=== PATIENT | male | born 1940 | race Caucasian/White ===

== ENCOUNTER → 2016-02-15 | Outpatient (CLI) | payer MEDICARE, OTHER ==
[~2016-02-15] MED LIST: AMBI10TA PO; CALTTAB2 PO; FENT75DI TD; FURO20 PO; GABA100C4 PO; LORT5TAB PO; OXYC-360 PO; POTA10IN2 PO; TAB-TAB PO; VITA400T14 PO; XANA0.5T PO; ZIAC2.5T PO; [UNRECOGNIZED DRUG - CODE]
== END ==
LOC: PLAB 12:44
PROVIDERS: ATTEND Urology
DX: R97.20 Elevated prostate specific antigen [PSA] (principal)
CPT/HCPCS: 36415; 84153

== ENCOUNTER → 2016-02-24 | Outpatient (CLI) | payer MEDICARE, OTHER ==
[2016-02-24 15:58] LABS: ALT (GPT) 26 U/L (12-78); ANION GAP 3 MEQ/L (5-15); AST (GOT) 19 U/L (15-37); BICARBONATE 30.1 MEQ/L (21.0-32.0); BLOOD UREA NITROGEN 18 MG/DL (7-18); CHLORIDE 106 MEQ/L (98-107); GLOMERULAR FILTRATION RATE 62 ML/MIN (>89); GLUCOSE,FASTING 91 MG/DL (74-99); POTASSIUM 4.3 MEQ/L (3.5-5.1); SODIUM (NA) 139 MEQ/L (136-145)
[2016-02-24 16:01] LABS: ALKALINE PHOSPHATASE 56 U/L (45-117); HDL CHOLESTEROL 41.4 MG/DL (40.0-60.0); LDL CHOLESTEROL 56 MG/DL (0-99); TOTAL BILIRUBIN ADULT 0.8 MG/DL (0.2-1.0)
== END ==
LOC: PLAB 11:30
PROVIDERS: ATTEND Family Medicine
DX: E78.5 Hyperlipidemia, unspecified (principal); I25.10 Atherosclerotic heart disease of native coronary artery without angina pectoris; I10 Essential (primary) hypertension
CPT/HCPCS: 36415; 80053; 80061

== ENCOUNTER → 2016-04-14 | Outpatient (CLI) | payer MEDICARE, OTHER ==
[2016-04-14 15:03] LABS: URIC ACID 6.7 MG/DL (2.6-7.2)
[2016-04-14 15:04] LABS: RHEUMATOID FACTOR TRIGGER LESS THAN 10.0 IU/ML (0.0-14.9)
== END ==
LOC: PLAB 11:59
PROVIDERS: ATTEND Internal Medicine Rheumatology
DX: M06.4 Inflammatory polyarthropathy (principal)
CPT/HCPCS: 36415; 84550; 85652; 86038; 86140; 86200; 86430; 99212; G0463

== ENCOUNTER → 2016-05-11 | Outpatient (CLI) | payer MEDICARE, OTHER ==
[2016-05-11 15:53] LABS: AUTOMATED NEUTROPHIL # 6.2 TH/MM3 (1.8-7.7); BASOPHIL % 0.4 % (0.0-2.0); EOSINOPHIL # 0.1 TH/MM3 (0-0.4); EOSINOPHIL % 1.2 % (0.0-4.0); HEMATOCRIT 41.5 % (39.0-51.0); HEMO FLAGS DIFF FINAL; LYMPH % 18.3 % (9.0-44.0); LYMPHOCYTE # 1.5 TH/MM3 (1.0-4.8); MEAN CELL VOLUME 86.4 FL (80.0-100.0); MEAN CORPUSCULAR HEMOGLOBIN 28.8 PG (27.0-34.0); MEAN CORPUSCULAR HGB CONC 33.3 % (32.0-36.0); MONO % 4.6 % (0.0-8.0); NEUT % 75.5 % (16.0-70.0); PLATELET COUNT 186 TH/MM3 (150-450); RED CELL DISTRIBUTION WIDTH 15.2 % (11.6-17.2); WHITE BLOOD COUNT 8.2 TH/MM3 (4.0-11.0)
[2016-05-11 16:02] LABS: BICARBONATE 30.4 MEQ/L (21.0-32.0); POTASSIUM 4.3 MEQ/L (3.5-5.1)
[2016-05-11 16:23] LABS: BLOOD, URINE TRACE (NEG); GLUCOSE,URINE NEG (NEG); KETONE, URINE NEG (NEG); NITRITE,URINE NEG (NEG); URINE COLOR LIGHT-YELLOW (YELLW/STRAW)
[2016-05-11 16:25] LABS: COMMENT (UR) CULT NOT INDICATED; CULTURE IF INDICATED CULT NOT INDICATED
== END ==
LOC: PLAB 13:10
PROVIDERS: ATTEND Internal Medicine Nephrology
DX: N18.2 Chronic kidney disease, stage 2 (mild) (principal); N25.81 Secondary hyperparathyroidism of renal origin
CPT/HCPCS: 36415; 80069; 81001; 82570; 83970; 84156; 85025

== ENCOUNTER → 2016-06-21 | Outpatient (CLI) | payer MEDICARE, OTHER ==
[2016-06-21 12:57] LABS: AUTOMATED NEUTROPHIL # 3.1 TH/MM3 (1.8-7.7); BASOPHIL % 0.3 % (0.0-2.0); EOSINOPHIL # 0.2 TH/MM3 (0-0.4); EOSINOPHIL % 3.7 % (0.0-4.0); HEMATOCRIT 39.6 % (39.0-51.0); HEMO FLAGS DIFF FINAL; LYMPH % 31.5 % (9.0-44.0); LYMPHOCYTE # 1.7 TH/MM3 (1.0-4.8); MEAN CELL VOLUME 87.2 FL (80.0-100.0); MEAN CORPUSCULAR HEMOGLOBIN 28.9 PG (27.0-34.0); MEAN CORPUSCULAR HGB CONC 33.2 % (32.0-36.0); MONO % 7.1 % (0.0-8.0); NEUT % 57.4 % (16.0-70.0); PLATELET COUNT 138 TH/MM3 (150-450); RED BLOOD COUNT 4.54 MIL/MM3 (4.50-5.90); RED CELL DISTRIBUTION WIDTH 15.2 % (11.6-17.2); WHITE BLOOD COUNT 5.4 TH/MM3 (4.0-11.0)
[2016-06-21 13:07] LABS: BICARBONATE 31.2 MEQ/L (21.0-32.0); POTASSIUM 4.5 MEQ/L (3.5-5.1)
== END ==
LOC: PLAB 09:46
PROVIDERS: ATTEND Internal Medicine Nephrology
DX: E55.9 Vitamin D deficiency, unspecified (principal); N18.2 Chronic kidney disease, stage 2 (mild); N25.81 Secondary hyperparathyroidism of renal origin
CPT/HCPCS: 36415; 80069; 82306; 82570; 83970; 84156; 85025

== ENCOUNTER → 2016-08-31 | Outpatient (CLI) | payer MEDICARE, OTHER ==
[2016-08-31 16:07] LABS: ANION GAP 6 MEQ/L (5-15); AST (GOT) 19 U/L (15-37); BICARBONATE 31.8 MEQ/L (21.0-32.0); BLOOD UREA NITROGEN 20 MG/DL (7-18); CHLORIDE 103 MEQ/L (98-107); GLOMERULAR FILTRATION RATE 60 ML/MIN (>89); GLUCOSE,FASTING 90 MG/DL (74-99); POTASSIUM 4.1 MEQ/L (3.5-5.1); SODIUM (NA) 141 MEQ/L (136-145)
[2016-08-31 16:11] LABS: ALKALINE PHOSPHATASE 54 U/L (45-117); ALT (GPT) 23 U/L (12-78); HDL CHOLESTEROL 43.7 MG/DL (40.0-60.0); LDL CHOLESTEROL 48 MG/DL (0-99); TOTAL BILIRUBIN ADULT 0.8 MG/DL (0.2-1.0)
== END ==
LOC: PLAB 10:44
PROVIDERS: ATTEND Family Medicine
DX: E78.5 Hyperlipidemia, unspecified (principal); I10 Essential (primary) hypertension
CPT/HCPCS: 36415; 80053; 80061

== ENCOUNTER → 2016-12-28 | Outpatient (CLI) | payer MEDICARE, OTHER ==
[2016-12-28 12:53] LABS: BASOPHIL % 0.2 % (0.0-2.0); EOSINOPHIL # 0.3 TH/MM3 (0-0.4); EOSINOPHIL % 3.7 % (0.0-4.0); HEMATOCRIT 41.8 % (39.0-51.0); HEMO FLAGS DIFF FINAL; LYMPH % 28.3 % (9.0-44.0); LYMPHOCYTE # 1.9 TH/MM3 (1.0-4.8); MEAN CELL VOLUME 87.5 FL (80.0-100.0); MEAN CORPUSCULAR HEMOGLOBIN 29.9 PG (27.0-34.0); MEAN CORPUSCULAR HGB CONC 34.2 % (32.0-36.0); MONO % 8.9 % (0.0-8.0); NEUT % 58.9 % (16.0-70.0); PLATELET COUNT 180 TH/MM3 (150-450); RED BLOOD COUNT 4.78 MIL/MM3 (4.50-5.90); RED CELL DISTRIBUTION WIDTH 14.5 % (11.6-17.2); WHITE BLOOD COUNT 6.8 TH/MM3 (4.0-11.0)
[2016-12-28 13:07] LABS: BACTERIA, URINE RARE /hpf; BLOOD, URINE SMALL (NEG); COMMENT (UR) CULTURE INDICATED; CULTURE IF INDICATED CULTURE INDICATED; GLUCOSE,URINE NEG (NEG); KETONE, URINE NEG (NEG); MUCUS URINE FEW /lpf (OCC); NITRITE,URINE NEG (NEG); URINE COLOR YELLOW (YELLW/STRAW)
[2016-12-28 13:16] LABS: BICARBONATE 30.6 MEQ/L (21.0-32.0); POTASSIUM 3.7 MEQ/L (3.5-5.1)
== END ==
LOC: PLAB 10:42
PROVIDERS: ATTEND Physician Assistant
DX: N25.81 Secondary hyperparathyroidism of renal origin (principal); N18.2 Chronic kidney disease, stage 2 (mild); N39.0 Urinary tract infection, site not specified; B95.2 Enterococcus as the cause of diseases classified elsewhere
CPT/HCPCS: 36415; 80069; 81001; 82306; 82570; 83970; 84156; 85025; 87077; 87086; 87186

== ENCOUNTER → 2017-02-13 | Outpatient (CLI) | payer MEDICARE, OTHER ==
[~2017-02-13] MED LIST changes: +ALPR0.5T3 PO; +APIX2.5T PO; +ATOR10TA15 PO; +CALC0.25 PO; +CALC1TAB87 PO; -CALTTAB2 PO; +ERGO2000 PO; +FENT75DI T-DERMAL; -FENT75DI TD; -FURO20 PO; +FURO20TA PO; +HYDR-4107 PO; -LORT5TAB PO; +MULTTAB67 PO; -OXYC-360 PO; +OXYC1TAB63 PO; -POTA10IN2 PO; +POTA10TA2 PO; +PRED2.5T PO; -TAB-TAB PO; +VENTAER INH; -XANA0.5T PO; -[UNRECOGNIZED DRUG - CODE]
[2017-02-13 13:32] LABS: AUTOMATED NEUTROPHIL # 6.8 TH/MM3 (1.8-7.7); BASOPHIL % 0.3 % (0.0-2.0); EOSINOPHIL # 0.3 TH/MM3 (0-0.4); EOSINOPHIL % 3.1 % (0.0-4.0); HEMATOCRIT 39.4 % (39.0-51.0); HEMOGLOBIN 13.6 GM/DL (13.0-17.0); LYMPH % 18.8 % (9.0-44.0); LYMPHOCYTE # 1.8 TH/MM3 (1.0-4.8); MEAN CELL VOLUME 88.4 FL (80.0-100.0); MEAN CORPUSCULAR HEMOGLOBIN 30.6 PG (27.0-34.0); MEAN CORPUSCULAR HGB CONC 34.6 % (32.0-36.0); MONO % 7.2 % (0.0-8.0); MONOCYTE # 0.7 TH/MM3 (0-0.9); NEUT % 70.6 % (16.0-70.0); PLATELET COUNT 182 TH/MM3 (150-450); RED BLOOD COUNT 4.45 MIL/MM3 (4.50-5.90); RED CELL DISTRIBUTION WIDTH 14.5 % (11.6-17.2); WHITE BLOOD COUNT 9.6 TH/MM3 (4.0-11.0)
[2017-02-13 13:42] LABS: ALBUMIN 3.8 GM/DL (3.4-5.0); ALT (GPT) 17 U/L (12-78); AST (GOT) 18 U/L (15-37); BICARBONATE 33.8 MEQ/L (21.0-32.0); BLOOD UREA NITROGEN 19 MG/DL (7-18); CALCIUM 9.9 MG/DL (8.5-10.1); CHLORIDE 102 MEQ/L (98-107); CHOLESTEROL 111 MG/DL (120-200); GLOMERULAR FILTRATION RATE 65 ML/MIN (>89); GLUCOSE,FASTING 81 MG/DL (74-99); SODIUM (NA) 140 MEQ/L (136-145); TRIGLYCERIDES 94 MG/DL (42-150)
[2017-02-13 13:43] LABS: RHEUMATOID FACTOR SCREEN NEGATIVE (NEGATIVE)
[2017-02-13 13:49] LABS: ALKALINE PHOSPHATASE 57 U/L (45-117); CHOLESTEROL/ HDL RATIO 2.42 RATIO; HDL CHOLESTEROL 45.7 MG/DL (40.0-60.0); LDL CHOLESTEROL 47 MG/DL (0-99); TOTAL BILIRUBIN ADULT 0.9 MG/DL (0.2-1.0); TOTAL PROTEIN 6.9 GM/DL (6.4-8.2)
== END ==
LOC: PLAB 11:21
PROVIDERS: ATTEND Internal Medicine Rheumatology
DX: M06.4 Inflammatory polyarthropathy (principal); I25.10 Atherosclerotic heart disease of native coronary artery without angina pectoris; E78.5 Hyperlipidemia, unspecified; I27.0 Primary pulmonary hypertension; I13.10 Hypertensive heart and chronic kidney disease without heart failure, with stage 1 through stage 4 chronic kidney disease, or unspecified chronic kidney disease; N18.3 Chronic kidney disease, stage 3 (moderate); D68.9 Coagulation defect, unspecified
CPT/HCPCS: 36415; 80053; 80061; 82550; 85025; 85652; 86140; 86200; 86430

== ENCOUNTER 2017-03-06 15:55 | Inpatient (IN) | payer MEDICARE, OTHER ==
[~2017-03-06] VITALS: Ht 182.9 cm; Wt 103.2 kg
[2017-03-06 15:59] VITALS: BP 126/56; PULSE 106; RESP 20; TEMP 100.2; O2SAT 96
--- NOTE | 2017-03-06 17:02 | RADRPT ---
EXAM DATE/TIME: 03/06/2017 16:20 [facility] COMPARISON: No previous studies available for comparison. INDICATIONS : Cough, flu like symtpoms. MEDICAL HISTORY : None. SURGICAL HISTORY : None. ENCOUNTER: Initial ACUITY: 1 day PAIN SCORE: 6/10 LOCATION: Bilateral chest FINDINGS: PA and lateral views of the chest demonstrate the lungs to be symmetrically, but under aerated withou t evidence of mass, infiltrate or effusion. The cardiomediastinal contours are unremarkable. Osseou s structures are intact. CONCLUSION: Hypoinflation with no acute cardiopulmonary process. Natalio Gomez MD on March 06, 2017 at 16:56 Board Certified Radiologist. This report was verified electronically.
[2017-03-06 17:43] LABS: AUTOMATED NEUTROPHIL # 11.2 TH/MM3 (1.8-7.7); BASOPHIL % 0.2 % (0.0-2.0); EOSINOPHIL % 0.3 % (0.0-4.0); HEMATOCRIT 41.2 % (39.0-51.0); HEMOGLOBIN 13.8 GM/DL (13.0-17.0); LYMPH % 4.3 % (9.0-44.0); LYMPHOCYTE # 0.6 TH/MM3 (1.0-4.8); MEAN CELL VOLUME 86.5 FL (80.0-100.0); MEAN CORPUSCULAR HEMOGLOBIN 29.1 PG (27.0-34.0); MEAN CORPUSCULAR HGB CONC 33.6 % (32.0-36.0); MEAN PLATELET VOLUME 8.5 FL (7.0-11.0); MONO % 9.2 % (0.0-8.0); MONOCYTE # 1.2 TH/MM3 (0-0.9); PLATELET COUNT 195 TH/MM3 (150-450); RED BLOOD COUNT 4.76 MIL/MM3 (4.50-5.90); RED CELL DISTRIBUTION WIDTH 15.1 % (11.6-17.2); WHITE BLOOD COUNT 13.1 TH/MM3 (4.0-11.0)
[2017-03-06 17:48] LABS: INTERNATIONAL NORMALIZED RATIO 1.1 RATIO
[2017-03-06 17:55] LABS: ALBUMIN 4.5 GM/DL (3.4-5.0); AST (GOT) 33 U/L (15-37); BICARBONATE 28.9 MEQ/L (21.0-32.0); BLOOD UREA NITROGEN 21 MG/DL (7-18); CALCIUM 10.2 MG/DL (8.5-10.1); CHLORIDE 99 MEQ/L (98-107); CREATININE 1.47 MG/DL (0.60-1.30); GLOMERULAR FILTRATION RATE 47 ML/MIN (>89); GLUCOSE,RANDOM 95 MG/DL (74-106); MAGNESIUM 1.9 MG/DL (1.5-2.5); SODIUM (NA) 137 MEQ/L (136-145)
[2017-03-06 17:56] LABS: AMORPHOUS SEDIMENT, URINE RARE; BACTERIA, URINE RARE /hpf; BILIRUBIN, URINE NEG (NEG); BLOOD, URINE MOD (NEG); GLUCOSE,URINE NEG (NEG); KETONE, URINE NEG (NEG); MUCUS URINE FEW /lpf (OCC); NITRITE,URINE NEG (NEG); SQUAMOUS EPITHELIAL CELL URINE <1 /hpf (0-5); URINE COLOR YELLOW (YELLW/STRAW); URINE LEUKOCYTE ESTERASE MOD (NEG)
[2017-03-06 17:57] LABS: ALT (GPT) 25 U/L (12-78)
[2017-03-06 18:08] LABS: ALKALINE PHOSPHATASE 62 U/L (45-117); TOTAL BILIRUBIN ADULT 1.2 MG/DL (0.2-1.0); TOTAL PROTEIN 7.9 GM/DL (6.4-8.2)
[2017-03-06] MEDS ORDERED: PLAQ200T PO (19:27)
[2017-03-06] MEDS ORDERED: SODIUM CHLOR 0.9% 1000 ML INJ 1,000 ML IV ONE (19:30)
[2017-03-06] MEDS ORDERED: cefTRIAXone INJ 1,000 MG in SODIUM CHLORIDE 0.9% INJ 100 ML IV ONE (19:30)
[2017-03-06 19:35] VITALS: BP 122/64; PULSE 89; RESP 16; O2SAT 95
[2017-03-06] MEDS ORDERED: ONDANSETRON HCL 4 MG/2 ML VIAL IV PUSH ONE (20:00)
[2017-03-06] MEDS ORDERED: ACETAMINOPHEN 325 MG TAB PO ONE (20:15)
[2017-03-06] MEDS ORDERED: NITROFURANTOIN MONOHYD MACROCR 100 MG CAP PO ONE (20:15)
--- NOTE | 2017-03-06 20:24 | RADRPT ---
EXAM DATE/TIME: 03/06/2017 19:52 [facility] COMPARISON: No previous studies available for comparison. INDICATIONS : Bilateral lower back pain,difficulty urinating ORAL CONTRAST: No oral contrast ingested. RADIATION DOSE: 8.54 CTDIvol (mGy) MEDICAL HISTORY : Cardiovascular disease. Hypertension. Renal diseaseand failure SURGICAL HISTORY : Appendectomy. ENCOUNTER: Initial ACUITY: 1 day PAIN SCALE: 8/10 LOCATION: Abdomen TECHNIQUE: Volumetric scanning of the abdomen and pelvis was performed. Using automated exposure control and ad justment of the mA and/or kV according to patient size, radiation dose was kept as low as reasonably achievable to obtain optimal diagnostic quality images. DICOM format image data is available electro nically for review and comparison. FINDINGS: Lung bases are clear. No acute findings in the liver, spleen, adrenals or pancreas. No calcified gall stones. There are numerous nonobstructing calculi the right kidney measuring up to 1 cm in diameter superiorl y. Small nonobstructing left renal calculi. Multiple bilateral renal cysts. No hydronephrosis. No free fluid. No bowel obstruction. No adenopathy. 3.6 cm infrarenal abdominal aortic aneurysm. No free fluid. No bowel obstruction. No adenopathy. Severe scoliosis with stenosis in the lower lumbar spine. CONCLUSION: 1. Numerous bilateral renal cysts and nonobstructing calculi. 2. 3.6 cm infrarenal abdominal aortic aneurysm. 3. Severe scoliosis and spinal stenosis. 4. Inferior vena cava filter present. Dense coronary calcifications. Abhishek Fontaine MD on March 06, 2017 at 20:15 Board Certified Radiologist. This report was verified electronically.
--- NOTE | 2017-03-06 20:43 | PD ---
HPI Chief Complaint: Fever Time Seen by Provider: 19:25 Travel History International Travel<30 days: No Contact w/Intl Traveler<30days: No Traveled to known affect area: No History of Present Illness HPI 77-year-old male came to the emergency room brought by his with history of fever, chills and generalized weakness that came all of a sudden at 11 AM this morning. Patient has history of multiple UTIs in the past. He sees a urologist for recurrent kidney stones and questionable bladder cancer that's being worked up currently. Patient had gone to see his primary care this morning and says that at that point everything was fine. When he came home he suddenly started to get the chills. He has been nauseous and has headache. Patient recently recovered from influenza about 4-6 weeks ago. Patient was seen by the triage provider and workup was initiated upfront. By the time he came back in all the workup was back. No history of diarrhea. No history of cough. Patient had a temperature of 100.1 in triage. Currently when I'm talking to him he is exhibiting that shaking chills. Patient has had sepsis in the past and when he started recognizing the symptoms he immediately came to the emergency room. [facility] Past Medical History Narrative Medical List of his past medical, surgical, social and family history is reviewed from the nursing note. Hx Anticoagulant Therapy: Yes (Eliquis) Arthritis: Yes Asthma: Yes Autoimmune Disease: Yes Blood Disorders: No Anxiety: No Depression: No Cancer: No Cardiac Catheterization: Yes Cardiovascular Problems: Yes (CARDIAC CATH SHOWED BLOCKAGE) High Cholesterol: Yes Chest Pain: Yes Congestive Heart Failure: No COPD: No Cerebrovascular Accident: No Coronary Artery Disease: Yes Diabetes: No Diminished Hearing: No Endocrine: No Gastrointestinal Disorders: Yes GERD: Yes Glaucoma: No Genitourinary: Yes (KIDNEY DISEASE) Headaches: No Hepatitis: No Hiatal Hernia: No Hypertension: Yes Immune Disorder: Yes Implanted Vascular Access Dvce: Yes Kidney Stones: Yes Medical other: Yes (THROMBI RACHID. LEGS, BPH, ANEMIA, MERSA) Musculoskeletal: Yes Neurologic: Yes Psychiatric: No Reproductive: No Respiratory: Yes Migraines: No Renal Failure: Yes (CLOSE TO KIDNEY FAILURE SEP 2007) Seizures: No Sleep Apnea: No Thyroid Disease: No Ulcer: No Influenza Vaccination: Yes Past Surgical History Abdominal Surgery: Yes (VENTRAL HERNIA, COLON RES., COLOSTOMY, (& REVERSAL)) Appendectomy: Yes Body Medical Devices: METAL SUTURES RIGHT ABDOMEN DUE TO APPY Cardiac Surgery: No Cholecystectomy: No Ear Surgery: No Endocrine Surgery: No Eye Surgery: Yes (BILATERAL CATARACT ) Genitourinary Surgery: Yes (URETERAL STENT, ESWL (MULTI), LITHOTRIPSY) Gynecologic Surgery: No Neurologic Surgery: Yes (LUMBAR FUSION, (X2)) Oral Surgery: Yes (T & A) Pacemaker: No Thoracic Surgery: No Tonsillectomy: Yes Other Surgery: Yes (GREEN FIELD FILTER) Social History Alcohol Use: Yes (1 BEER SOCIALLY) Tobacco Use: No Substance Use: No Allergies-Medications (Allergen,Severity, Reaction): Coded Allergies: amitriptyline (Unverified Allergy, Severe, 01/15/17) diatrizoate meglumine (Unverified Allergy, Severe, Hypotension, 01/15/17) gadobenic acid (Unverified Allergy, Severe, Hypotension, 01/15/17) gadodiamide (Unverified Allergy, Severe, Hypotension, 01/15/17) gadoteridol (Unverified Allergy, Severe, Hypotension, 01/15/17) iodixanol (Unverified Allergy, Severe, Hypotension, 01/15/17) iohexol (Unverified Allergy, Severe, Hypotension, 01/15/17) pentazocine (Unverified Allergy, Severe, BRADYCARDIA, DECREASE NEURO STATUS, 01/15/17) pregabalin (Unverified Allergy, Severe, 01/15/17) warfarin (Unverified Allergy, Severe, 01/15/17) Comments List of his allergies reviewed from the nursing note. Reported Meds & Prescriptions Reported Meds & Active Scripts Active Reported Plaquenil (Hydroxychloroquine Sulfate) 200 Mg Tab 200 Mg PO BID Take with food Prednisone 2.5 Mg Tab 1.25 Mg PO BID Atorvastatin (Atorvastatin Calcium) 10 Mg Tab 5 Mg PO HS Ventolin Hfa 18 GM Inh (Albuterol Sulfate) 90 Mcg/Act Aer 2 Puff INH DAILY PRN Calcitriol 0.25 Mcg Cap 0.25 Mcg PO DIRECTED sunday, sunday, sunday and sunday Ambien (Zolpidem Tartrate) 10 Mg Tab 10 Mg PO HS PRN Potassium Chloride ER (Potassium Chloride) 10 Meq Tab 10 Meq PO DAILY Oxycodone-Acetaminophen 5-325 mg Tab 1 Tab PO Q6H PRN Multiple Vitamin 1 Tab 1 Tab PO DAILY Gabapentin 100 Mg Cap 100 Mg PO TID Furosemide 20 Mg Tab 20 Mg PO DAILY Eliquis (Apixaban) 2.5 Mg Tab 2.5 Mg PO BID Fentanyl Patch 72 HR (Fentanyl) 75 Mcg/Hr Patch 75 Mcg T-DERMAL Q72H Remove old patch when new one placed. Vitamin D2 (Ergocalciferol) 2,000 Unit Tab 50,000 Units PO EVERY 2 WEEKS Calcium 600 with Vitamin D (Calcium Carbonate-Cholecalciferol) 600-400 mg-Unit Tab 1 Tab PO BID Ziac (Bisoprolol-Hydrochlorothiazide) 2.5-6.25 Mg Tab 0.05 Tab PO DAILY Alprazolam 0.5 Mg Tab 0.5 Mg PO DIRECTED PRN Hydrocodone-Acetaminophen 5-300 Mg Tab 1 Tab PO Q6H PRN Narrative Medication List of his home medications reviewed from the nursing note. Review of Systems Except as stated in HPI: all other systems reviewed are Neg General / Constitutional: Positive: Fever, Chills Gastrointestinal: Positive: Nausea Physical Exam Narrative GENERAL: Awake, alert, elderly, moderate distress, rigors SKIN: Focused skin assessment warm/dry. HEAD: Atraumatic. Normocephalic. EYES: Pupils equal and round. No scleral icterus. No injection or drainage. ENT: No nasal bleeding or discharge. Dry mucous membrane NECK: Trachea midline. No JVD. CARDIOVASCULAR: Regular rate and rhythm. No murmur appreciated. RESPIRATORY: No accessory muscle use. Clear to auscultation. Breath sounds equal bilaterally. GASTROINTESTINAL: Abdomen soft, non-tender, nondistended. Hepatic and splenic margins not palpable. MUSCULOSKELETAL: No obvious deformities. No clubbing. No cyanosis. No edema. NEUROLOGICAL: Awake and alert. No obvious cranial nerve deficits. Motor grossly within normal limits. Normal speech. PSYCHIATRIC: Appropriate mood and affect; insight and judgment normal. Data Data Last Documented VS Vital Signs Date Time Temp Pulse Resp B/P (MAP) Pulse Ox O2 Delivery O2 Flow Rate FiO2 03/06/17 19:35 89 16 122/64 (83) 95 Room Air 03/06/17 15:59 100.2 Orders Orders Complete Blood Count With Diff (03/06/17 16:07) Comprehensive Metabolic Panel (03/06/17 16:07) Prothrombin Time / Inr (Pt) (03/06/17 16:07) Act Partial Throm Time (Ptt) (03/06/17 16:07) Lactic Acid Sepsis Protocol (03/06/17 16:07) Magnesium (Mg) (03/06/17 16:07) Urinalysis - C+S If Indicated (03/06/17 16:07) Influenzae A/B Antigen (03/06/17 16:07) Chest, Pa & Lat (03/06/17 16:07) Urine Culture (03/06/17 17:00) Ceftriaxone Inj (Rocephin Inj) (03/06/17 19:30) Sodium Chlor 0.9% 1000 Ml Inj (Ns 1000 M (03/06/17 19:30) Ct Abd/Pel W/O Iv Contrast (03/06/17 ) Ondansetron Inj (Zofran Inj) (03/06/17 20:00) Acetaminophen (Tylenol) (03/06/17 20:15) Nitrofurantoin Monohyd Macrocr (Macrobid (03/06/17 20:15) Potassium Chloride (Kcl) (03/06/17 20:45) Blood Culture (03/06/17 20:53) Admit Order (Ed Use Only) (03/06/17 20:54) Labs Laboratory Tests Test 03/06/17 17:00 03/06/17 17:10 Urine Color YELLOW Urine Turbidity CLEAR Urine pH 7.0 Urine Specific [place] 1.015 Urine Protein 30 mg/dL Urine Glucose (UA) NEG mg/dL Urine Ketones NEG mg/dL Urine Occult Blood MOD Urine Nitrite NEG Urine Bilirubin NEG Urine Urobilinogen LESS THAN 2.0 MG/DL Urine Leukocyte Esterase MOD Urine RBC 127 /hpf Urine WBC 35 /hpf Urine Squamous Epithelial Cells <1 /hpf Urine Amorphous Sediment RARE Urine Bacteria RARE /hpf Urine Mucus FEW /lpf Microscopic Urinalysis Comment CATH-CULTURE IND White Blood Count 13.1 TH/MM3 Red Blood Count 4.76 MIL/MM3 Hemoglobin 13.8 GM/DL Hematocrit 41.2 % Mean Corpuscular Volume 86.5 FL Mean Corpuscular Hemoglobin 29.1 PG Mean Corpuscular Hemoglobin Concent 33.6 % Red Cell Distribution Width 15.1 % Platelet Count 195 TH/MM3 Mean Platelet Volume 8.5 FL Neutrophils (%) (Auto) 86.0 % Lymphocytes (%) (Auto) 4.3 % Monocytes (%) (Auto) 9.2 % Eosinophils (%) (Auto) 0.3 % Basophils (%) (Auto) 0.2 % Neutrophils # (Auto) 11.2 TH/MM3 Lymphocytes # (Auto) 0.6 TH/MM3 Monocytes # (Auto) 1.2 TH/MM3 Eosinophils # (Auto) 0.0 TH/MM3 Basophils # (Auto) 0.0 TH/MM3 CBC Comment DIFF FINAL Differential Comment Prothrombin Time 11.0 SEC Prothromb Time International Ratio 1.1 RATIO Activated Partial Thromboplast Time 24.7 SEC Blood Urea Nitrogen 21 MG/DL Creatinine 1.47 MG/DL Random Glucose 95 MG/DL Total Protein 7.9 GM/DL Albumin 4.5 GM/DL Calcium Level 10.2 MG/DL Magnesium Level 1.9 MG/DL Alkaline Phosphatase 62 U/L Aspartate Amino Transf (AST/SGOT) 33 U/L Alanine Aminotransferase (ALT/SGPT) 25 U/L Total Bilirubin 1.2 MG/DL Sodium Level 137 MEQ/L Potassium Level 3.2 MEQ/L Chloride Level 99 MEQ/L Carbon Dioxide Level 28.9 MEQ/L Anion Gap 9 MEQ/L Estimat Glomerular Filtration Rate 47 ML/MIN Lactic Acid Level 1.8 mmol/L MDM Medical Decision Making Medical Screen Exam Complete: Yes Emergency Medical Condition: Yes Medical Record Reviewed: Yes Differential Diagnosis Sepsis, UTI, hematuria, ureteral calculus, obstructive uropathy Narrative Course 8:41 PM based on the UTI and hematuria I ordered a CT scan of the abdomen and pelvis and patient was given IV Rocephin. He was also given IV fluid bolus by me. He has been nauseous and Zofran was ordered. I ordered antipyretic. CT scan report is back and does not show any obstructive uropathy. I would like to admit the patient given his symptoms currently. Awaiting for the hospitalist to call back. Procedures EKG Prior to Arrival: No Diagnosis Primary Impression: SIRS (systemic inflammatory response syndrome) Additional Impressions: UTI (urinary tract infection) Qualified Codes: N39.0 - Urinary tract infection, site not specified; R31.9 - Hematuria, unspecified Dehydration Admitting Information Admitting Physician Requests: Admit James Villalta MD Mar 06, 2017 20:43
[2017-03-06] MEDS ORDERED: POTASSIUM CHLORIDE 20 MEQ CONTROLLED RELEASE TAB PO ONE (20:45)
[2017-03-06] MEDS ORDERED: HEPARIN SODIUM - SQ 10,000 UNITS/ML VIAL SQ SCH (21:45)
[2017-03-06] MEDS ORDERED: NALOXONE HCL 0.4 MG/ML AMP IV PUSH PRN (21:45)
[2017-03-06] MEDS ORDERED: cefTRIAXone INJ 1,000 MG in SODIUM CHLORIDE 0.9% INJ 100 ML IV SCH (21:45)
[2017-03-06] MEDS ORDERED: ACETAMINOPHEN 325 MG TAB PO PRN (21:45)
[2017-03-06 22:44] VITALS: BP 101/46; PULSE 63; RESP 19; TEMP 98.3; O2SAT 97
[2017-03-07] VITALS (7 sets, daily range): BP systolic 105–127; BP diastolic 56–60; PULSE 58–83; RESP 18–20; TEMP 98.3–99.1; O2SAT 96–100
[2017-03-07] MEDS: REMOVE OLD DURAGESIC (FENTANYL) PATCH T-DERMAL SCH
[2017-03-07] MEDS ORDERED: fentaNYL 75 MCG/HR PATCH T-DERMAL SCH
[2017-03-07] MEDS: ZOLPIDEM TARTRATE 10 MG TAB PO PRN (00:08)
[2017-03-07] MEDS: oxyCODONE/ACETAMINOPHEN 5 MG/325 MG TAB PO PRN (00:08)
[2017-03-07] MEDS: fentaNYL 75 MCG/HR PATCH T-DERMAL SCH (00:15)
--- NOTE | 2017-03-07 05:16 | HHI.HP ---
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 Patient is confused during our discussion, oriented to self and place but not year. He is unable to tell me his past medical history with the exception of previously having sepsis. He continues to endorse shaking chills and states he has lower abdominal/pelvic pain. UA consistent with urinary tract infection. Vital signs : Temperature 100.2, pulse 106, respirations 20, BP 126/56, pulse ox 96% on room air. Review of Systems Subjective fever/chills Denies blurry vision, otorrhea, rhinorrhea Denies sore throat and cough No chest pain, palpitations No shortness of breath or wheezing Positive pelvic/lower abdominal pain Denies constipation/diarrhea/nausea/vomiting Denies muscle pain Denies focal weakness No rashes Past Family Social History Past Medical History (Obtained from medical records) Multiple DVTs status post IVC filter, currently on Eliquis History of abnormal urine cytology, currently being followed by urology Anxiety Arthritis Asthma Colon polyps Diverticulosis Glomerulonephritis Hyper parathyroidism Hypertension Irregular heartbeat Kidney cyst Peripheral neuropathy Past Surgical History Cholecystectomy Colonoscopy Reported Medications Reported Meds & Active Scripts Active Reported Plaquenil (Hydroxychloroquine Sulfate) 200 Mg Tab 200 Mg PO BID Take with food Prednisone 2.5 Mg Tab 1.25 Mg PO BID Atorvastatin (Atorvastatin Calcium) 10 Mg Tab 5 Mg PO HS Ventolin Hfa 18 GM Inh (Albuterol Sulfate) 90 Mcg/Act Aer 2 Puff INH DAILY PRN Calcitriol 0.25 Mcg Cap 0.25 Mcg PO DIRECTED sunday, sunday, sunday and sunday Ambien (Zolpidem Tartrate) 10 Mg Tab 10 Mg PO HS PRN Potassium Chloride ER (Potassium Chloride) 10 Meq Tab 10 Meq PO DAILY Oxycodone-Acetaminophen 5-325 mg Tab 1 Tab PO Q6H PRN Multiple Vitamin 1 Tab 1 Tab PO DAILY Gabapentin 100 Mg Cap 100 Mg PO TID Furosemide 20 Mg Tab 20 Mg PO DAILY Eliquis (Apixaban) 2.5 Mg Tab 2.5 Mg PO BID Fentanyl Patch 72 HR (Fentanyl) 75 Mcg/Hr Patch 75 Mcg T-DERMAL Q72H Remove old patch when new one placed. Vitamin D2 (Ergocalciferol) 2,000 Unit Tab 50,000 Units PO EVERY 2 WEEKS Calcium 600 with Vitamin D (Calcium Carbonate-Cholecalciferol) 600-400 mg-Unit Tab 1 Tab PO BID Ziac (Bisoprolol-Hydrochlorothiazide) 2.5-6.25 Mg Tab 0.05 Tab PO DAILY Alprazolam 0.5 Mg Tab 0.5 Mg PO DIRECTED PRN Hydrocodone-Acetaminophen 5-300 Mg Tab 1 Tab PO Q6H PRN Allergies: Coded Allergies: amitriptyline (Unverified Allergy, Severe, 01/15/17) diatrizoate meglumine (Unverified Allergy, Severe, Hypotension, 01/15/17) gadobenic acid (Unverified Allergy, Severe, Hypotension, 01/15/17) gadodiamide (Unverified Allergy, Severe, Hypotension, 01/15/17) gadoteridol (Unverified Allergy, Severe, Hypotension, 01/15/17) iodixanol (Unverified Allergy, Severe, Hypotension, 01/15/17) iohexol (Unverified Allergy, Severe, Hypotension, 01/15/17) pentazocine (Unverified Allergy, Severe, BRADYCARDIA, DECREASE NEURO STATUS, 01/15/17) pregabalin (Unverified Allergy, Severe, 01/15/17) warfarin (Unverified Allergy, Severe, 01/15/17) Family History Negative for CAD/DM Social History Denies alcohol, tobacco and illicit drugs Physical Exam Vital Signs Vital Signs Date Time Temp Pulse Resp B/P (MAP) Pulse Ox O2 Delivery O2 Flow Rate FiO2 03/07/17 01:09 98.3 64 20 112/56 (74) 100 03/06/17 22:44 98.3 63 19 101/46 (64) 97 03/06/17 22:34 03/06/17 19:35 89 16 122/64 (83) 95 Room Air 03/06/17 15:59 100.2 106 20 126/56 (79) 96 Physical Exam GENERAL: male lying in bed SKIN: No rashes, ecchymoses or lesions. Cool and dry. HEAD: Atraumatic. Normocephalic. No temporal or scalp tenderness. EYES: Pupils equal round and reactive. Extraocular motions intact. No scleral icterus. No injection or drainage. ENT: Nose without bleeding, purulent drainage or septal hematoma. Throat without erythema, tonsillar hypertrophy or exudate. Uvula midline. Airway patent. NECK: Trachea midline. No JVD or lymphadenopathy. Supple, nontender, no meningeal signs. CARDIOVASCULAR: Regular rate and rhythm without murmurs, gallops, or rubs. RESPIRATORY: Clear to auscultation. Breath sounds equal bilaterally. No wheezes , rales, or rhonchi. GASTROINTESTINAL: Abdomen soft, non-tender, nondistended. No hepato-splenomegaly , or palpable masses. No guarding. MUSCULOSKELETAL: Extremities without clubbing, cyanosis, or edema. No joint tenderness, effusion, or edema noted. No calf tenderness. NEUROLOGICAL: Awake and alert. Cranial nerves II through XII intact. Motor and sensory grossly within normal limits. Normal speech. Laboratory Laboratory Tests Test 03/06/17 17:00 03/06/17 17:10 Urine Color YELLOW Urine Turbidity CLEAR Urine pH 7.0 Urine Specific [place] 1.015 Urine Protein 30 Urine Glucose (UA) NEG Urine Ketones NEG Urine Occult Blood MOD Urine Nitrite NEG Urine Bilirubin NEG Urine Urobilinogen LESS THAN 2.0 Urine Leukocyte Esterase MOD Urine RBC 127 Urine WBC 35 Urine Squamous Epithelial Cells <1 Urine Amorphous Sediment RARE Urine Bacteria RARE Urine Mucus FEW Microscopic Urinalysis Comment CATH-CULTURE IND White Blood Count 13.1 Red Blood Count 4.76 Hemoglobin 13.8 Hematocrit 41.2 Mean Corpuscular Volume 86.5 Mean Corpuscular Hemoglobin 29.1 Mean Corpuscular Hemoglobin Concent 33.6 Red Cell Distribution Width 15.1 Platelet Count 195 Mean Platelet Volume 8.5 Neutrophils (%) (Auto) 86.0 Lymphocytes (%) (Auto) 4.3 Monocytes (%) (Auto) 9.2 Eosinophils (%) (Auto) 0.3 Basophils (%) (Auto) 0.2 Neutrophils # (Auto) 11.2 Lymphocytes # (Auto) 0.6 Monocytes # (Auto) 1.2 Eosinophils # (Auto) 0.0 Basophils # (Auto) 0.0 CBC Comment DIFF FINAL Differential Comment Prothrombin Time 11.0 Prothromb Time International Ratio 1.1 Activated Partial Thromboplast Time 24.7 Blood Urea Nitrogen 21 Creatinine 1.47 Random Glucose 95 Total Protein 7.9 Albumin 4.5 Calcium Level 10.2 Magnesium Level 1.9 Alkaline Phosphatase 62 Aspartate Amino Transf (AST/SGOT) 33 Alanine Aminotransferase (ALT/SGPT) 25 Total Bilirubin 1.2 Sodium Level 137 Potassium Level 3.2 Chloride Level 99 Carbon Dioxide Level 28.9 Anion Gap 9 Estimat Glomerular Filtration Rate 47 Lactic Acid Level 1.8 Date/Time Source Procedure Growth Status 03/06/17 21:15 Blood Peripheral Aerobic Blood Culture Pending Received 03/06/17 21:15 Blood Peripheral Anaerobic Blood Culture Pending Received 03/06/17 17:10 Nasal Aspirate Influenza Types A,B Antigen (SONA) - Final NEGATIVE FOR FLU A AND B ANTIGEN.... Complete 03/06/17 17:00 Urine Catheterized Urine Urine Culture Pending Received Result Diagram: 03/06/17 1710 03/06/17 1710 Caprini VTE Risk Assessment Caprini VTE Risk Assessment: Mod/High Risk (score >= 2) Caprini Risk Assessment Model Point Value = 1 Point Value = 2 Point Value = 3 Point Value = 5 Age 41-60 Minor surgery BMI > 25 kg/m2 Swollen legs Varicose veins or History of unexplained or recurrent spontaneous Oral contraceptives or hormone replacement Sepsis (< 1 month) Serious lung disease, including pneumonia (< 1 month) Abnormal pulmonary function Acute myocardial infarction Congestive heart failure (< 1 month) History of inflammatory bowel disease Medical patient at bed rest Age 61-74 Arthroscopic surgery Major open surgery (> 45 min) Laparoscopic surgery (> 45 min) Malignancy Confined to bed (> 72 hours) Immobilizing plaster cast Central venous access Age >= 75 History of VTE Family history of VTE Factor V Leiden Prothrombin [id number] Lupus anticoagulant Anticardiolipin antibodies Elevated serum homocysteine Heparin-induced thrombocytopenia Other congenital or acquired thrombophilia Stroke (< 1 month) Elective arthroplasty Hip, pelvis, or leg fracture Acute spinal cord injury (< 1 month) Prophylaxis Regimen Total Risk Factor Score Risk Level Prophylaxis Regimen 0-1 Low Early ambulation 2 Moderate Order ONE of the following: *Sequential Compression Device (SCD) *Heparin 5000 units SQ BID 3-4 Higher Order ONE of the following medications: *Heparin 5000 units SQ TID *Enoxaparin/Lovenox 40 mg SQ daily (WT < 150 kg, CrCl > 30 mL/min) *Enoxaparin/Lovenox 30 mg SQ daily (WT < 150 kg, CrCl > 10-29 mL/min) *Enoxaparin/Lovenox 30 mg SQ BID (WT < 150 kg, CrCl > 30 mL/min) AND/OR *Sequential Compression Device (SCD) 5 or more Highest Order ONE of the following medications: *Heparin 5000 units SQ TID (Preferred with Epidurals) *Enoxaparin/Lovenox 40 mg SQ daily (WT < 150 kg, CrCl > 30 mL/min) *Enoxaparin/Lovenox 30 mg SQ daily (WT < 150 kg, CrCl > 10-29 mL/min) *Enoxaparin/Lovenox 30 mg SQ BID (WT < 150 kg, CrCl > 30 mL/min) AND *Sequential Compression Device (SCD) Assessment and Plan Assessment and Plan Assessment/plan: 1. Urinary tract infection/Sepsis Patient with leukocytosis, febrile to 100.2, tachycardic UA with rare bacteria, moderate leukocyte esterase, 127 RBCs, 35 WBCs Rocephin Urine culture pending Blood cultures pending Monitor for signs of shock 2. RUBEN BUN/creatinine 21/1.47, was 19/1.10 on 02/13/17 IV fluid hydration Monitor renal function Avoid nephrotoxic agents 3. History of recurrent DVT Anticoagulated on Eliquis, failed Coumadin Status post IVC filter placement 4. Hypertension/hyperlipidemia Continue home medications 5. Chronic back pain Continue home fentanyl patch and Percocet 6. Renal cysts/glomerulonephritis Continue home prednisone CT of the abdomen/pelvis shows numerous bilateral renal cysts and nonobstructing calculi 7. History of abnormal urine cytology Followed as outpatient with urology who recommended repeat cytology in 3 months 8. Hypokalemia Potassium 3.2 Status post by mouth repletion Follow-up BMP FEN Heart healthy diet Electrolytes: As above NS at 120 cc/hr [place] Physician Certification 2 Midnight Certification Type: Admission for Inpatient Services Order for Inpatient Services The services are ordered in accordance with Medicare regulations or non- Medicare payer requirements, as applicable. In the case of services not specified as inpatient-only, they are appropriately provided as inpatient services in accordance with the 2-midnight benchmark. Estimated LOS (days): 2 2 days is the estimated time the patient will need to remain in the hospital, assuming treatment plan goals are met and no additional complications. Post-Hospital Plan: Not yet determined Cyndi Arias MD Mar 07, 2017 05:16
[2017-03-07] MEDS: SODIUM CHLOR 0.9% 1000 ML INJ 1,000 ML IV SCH ×3 (05:48→22:44)
[2017-03-07 06:59] LABS: AUTOMATED NEUTROPHIL # 6.9 TH/MM3 (1.8-7.7); BASOPHIL % 0.5 % (0.0-2.0); EOSINOPHIL % 0.5 % (0.0-4.0); HEMATOCRIT 33.4 % (39.0-51.0); HEMOGLOBIN 11.7 GM/DL (13.0-17.0); LYMPH % 4.9 % (9.0-44.0); LYMPHOCYTE # 0.4 TH/MM3 (1.0-4.8); MEAN CELL VOLUME 86.7 FL (80.0-100.0); MEAN CORPUSCULAR HEMOGLOBIN 30.4 PG (27.0-34.0); MEAN PLATELET VOLUME 8.9 FL (7.0-11.0); MONO % 6.6 % (0.0-8.0); MONOCYTE # 0.5 TH/MM3 (0-0.9); NEUT % 87.5 % (16.0-70.0); PLATELET COUNT 133 TH/MM3 (150-450); RED BLOOD COUNT 3.85 MIL/MM3 (4.50-5.90); RED CELL DISTRIBUTION WIDTH 15.4 % (11.6-17.2); WHITE BLOOD COUNT 7.9 TH/MM3 (4.0-11.0)
[2017-03-07 07:22] LABS: BICARBONATE 30.1 MEQ/L (21.0-32.0); CALCIUM 8.8 MG/DL (8.5-10.1); CREATININE 1.43 MG/DL (0.60-1.30)
[2017-03-07] MEDS ORDERED: BISOPROLOL HYDROCHLOROTHIAZIDE PO SCH (09:00)
[2017-03-07] MEDS: SODIUM CHLORIDE 0.9% FLUSH 10 ML FLUSH IV FLUSH SCH ×2 (09:00→21:00)
[2017-03-07] MEDS: POTASSIUM CHLORIDE 10 MEQ CONTROLLED RELEASE TAB PO SCH (10:11)
[2017-03-07] MEDS: APIXABAN 2.5 MG TABLET PO SCH ×2 (10:11→22:44)
[2017-03-07] MEDS: GABAPENTIN 100 MG CAP PO SCH ×3 (10:11→17:12)
[2017-03-07] MEDS: FUROSEMIDE 20 MG TAB PO SCH (10:11)
[2017-03-07] MEDS: predniSONE 1 MG TAB PO SCH ×2 (10:12→22:44)
[2017-03-07] MEDS: AMPICILLIN INJ 2,000 MG in SODIUM CHLORIDE 0.9% INJ 100 ML IV SCH (17:12)
[2017-03-07] MEDS ORDERED: cefTRIAXone INJ 1,000 MG in SODIUM CHLORIDE 0.9% INJ 100 ML IV SCH (21:45)
[2017-03-07] MEDS: ATORVASTATIN 10 MG TAB PO SCH (22:43)
[2017-03-08] VITALS (10 sets, daily range): BP systolic 106–133; BP diastolic 52–66; PULSE 56–78; RESP 16–18; TEMP 97.8–99.4; O2SAT 94–99
[2017-03-08] MEDS: ZOLPIDEM TARTRATE 10 MG TAB PO PRN ×2 (01:51→22:45)
[2017-03-08] MEDS: AMPICILLIN INJ 2,000 MG in SODIUM CHLORIDE 0.9% INJ 100 ML IV SCH ×3 (01:51→18:18)
[2017-03-08] MEDS: SODIUM CHLOR 0.9% 1000 ML INJ 1,000 ML IV SCH ×3 (04:55→21:38)
[2017-03-08] MEDS: POTASSIUM CHLORIDE 10 MEQ CONTROLLED RELEASE TAB PO SCH (08:22)
[2017-03-08] MEDS: predniSONE 1 MG TAB PO SCH ×2 (08:22→21:40)
[2017-03-08] MEDS: GABAPENTIN 100 MG CAP PO SCH ×3 (08:22→18:18)
[2017-03-08] MEDS: APIXABAN 2.5 MG TABLET PO SCH ×2 (08:22→21:40)
[2017-03-08] MEDS: SODIUM CHLORIDE 0.9% FLUSH 10 ML FLUSH IV FLUSH SCH ×2 (08:22→21:38)
[2017-03-08] MEDS: FUROSEMIDE 20 MG TAB PO SCH (08:22)
[2017-03-08] MEDS: oxyCODONE/ACETAMINOPHEN 5 MG/325 MG TAB PO PRN (14:51)
[2017-03-08] MEDS: ATORVASTATIN 10 MG TAB PO SCH (21:40)
[2017-03-08 22:23] LABS: BICARBONATE 31.7 MEQ/L (21.0-32.0); CALCIUM 7.9 MG/DL (8.5-10.1); CREATININE 0.93 MG/DL (0.60-1.30)
[2017-03-09] VITALS (8 sets, daily range): BP systolic 111–143; BP diastolic 70–92; PULSE 55–75; RESP 18–20; TEMP 96.5–98.8; O2SAT 57–100
[2017-03-09] MEDS: AMPICILLIN INJ 2,000 MG in SODIUM CHLORIDE 0.9% INJ 100 ML IV SCH ×2 (01:42→09:31)
[2017-03-09] MEDS: SODIUM CHLOR 0.9% 1000 ML INJ 1,000 ML IV SCH (05:00)
[2017-03-09 07:50] LABS: AUTOMATED NEUTROPHIL # 3.3 TH/MM3 (1.8-7.7); BASOPHIL % 0.5 % (0.0-2.0); EOSINOPHIL # 0.4 TH/MM3 (0-0.4); EOSINOPHIL % 6.5 % (0.0-4.0); HEMATOCRIT 33.5 % (39.0-51.0); HEMOGLOBIN 11.6 GM/DL (13.0-17.0); LYMPH % 22.8 % (9.0-44.0); LYMPHOCYTE # 1.3 TH/MM3 (1.0-4.8); MEAN CELL VOLUME 86.2 FL (80.0-100.0); MEAN CORPUSCULAR HEMOGLOBIN 29.8 PG (27.0-34.0); MEAN CORPUSCULAR HGB CONC 34.6 % (32.0-36.0); MEAN PLATELET VOLUME 8.1 FL (7.0-11.0); MONO % 11.4 % (0.0-8.0); MONOCYTE # 0.6 TH/MM3 (0-0.9); NEUT % 58.8 % (16.0-70.0); PLATELET COUNT 129 TH/MM3 (150-450); RED BLOOD COUNT 3.89 MIL/MM3 (4.50-5.90); RED CELL DISTRIBUTION WIDTH 14.9 % (11.6-17.2); WHITE BLOOD COUNT 5.6 TH/MM3 (4.0-11.0)
[2017-03-09 08:58] LABS: ALBUMIN 2.8 GM/DL (3.4-5.0); ALKALINE PHOSPHATASE 38 U/L (45-117); ALT (GPT) 17 U/L (12-78); AST (GOT) 19 U/L (15-37); BICARBONATE 26.9 MEQ/L (21.0-32.0); BLOOD UREA NITROGEN 13 MG/DL (7-18); CALCIUM 7.9 MG/DL (8.5-10.1); CHLORIDE 113 MEQ/L (98-107); CREATININE 0.79 MG/DL (0.60-1.30); GLOMERULAR FILTRATION RATE 96 ML/MIN (>89); GLUCOSE,RANDOM 94 MG/DL (74-106); PHOSPHORUS 1.5 MG/DL (2.5-4.9); SODIUM (NA) 146 MEQ/L (136-145); TOTAL BILIRUBIN ADULT 0.4 MG/DL (0.2-1.0); TOTAL PROTEIN 5.6 GM/DL (6.4-8.2)
[2017-03-09] MEDS: POTASSIUM CHLORIDE 10 MEQ CONTROLLED RELEASE TAB PO SCH (09:29)
[2017-03-09] MEDS: FUROSEMIDE 20 MG TAB PO SCH (09:29)
[2017-03-09] MEDS: APIXABAN 2.5 MG TABLET PO SCH (09:29)
[2017-03-09] MEDS: GABAPENTIN 100 MG CAP PO SCH ×3 (09:29→18:51)
[2017-03-09] MEDS: predniSONE 1 MG TAB PO SCH (09:30)
[2017-03-09] MEDS: oxyCODONE/ACETAMINOPHEN 5 MG/325 MG TAB PO PRN ×2 (09:32→17:17)
[2017-03-09] MEDS: SODIUM CHLORIDE 0.9% FLUSH 10 ML FLUSH IV FLUSH SCH ×2 (09:32→23:58)
--- NOTE | 2017-03-09 09:47 | HHI.PR ---
Subjective Remarks deferred entry - patient seen at 4pm on 03/08/17. Denies cp/sob Objective Vitals Vital Signs Date Time Temp Pulse Resp B/P (MAP) Pulse Ox O2 Delivery O2 Flow Rate FiO2 03/09/17 08:00 97.4 66 18 128/70 (89) 57 03/09/17 05:17 98.4 64 20 143/79 (100) 94 03/09/17 04:04 75 03/09/17 00:01 64 03/09/17 00:00 98.8 70 20 135/92 (106) 97 03/08/17 21:57 98.3 64 18 126/61 (82) 98 03/08/17 20:15 70 03/08/17 18:29 18 03/08/17 16:11 97.9 60 18 106/52 (70) 94 03/08/17 11:19 97.8 78 18 133/66 (88) 97 I/O 03/08/17 03/08/17 03/08/17 03/09/17 03/09/17 03/09/17 07:00 15:00 23:00 07:00 15:00 23:00 Intake Total 100 ml 500 ml Output Total 400 ml Balance 100 ml 100 ml Intake Oral 500 ml IV Total 100 ml Output Urine Total 400 ml # Voids 3 # Bowel Movements 2 0 Result Diagram: 03/09/17 0716 03/09/17 0716 Imaging Last Impressions Chest X-Ray 03/06/17 1607 Signed Impressions: Service Date/Time: Monday, March 06, 2017 16:20 - CONCLUSION: Hypoinflation with no acute cardiopulmonary process. Natalio Gomez MD Abdomen/Pelvis CT 03/06/17 0000 Signed Impressions: Service Date/Time: Monday, March 06, 2017 19:52 - CONCLUSION: 1. Numerous bilateral renal cysts and nonobstructing calculi. 2. 3.6 cm infrarenal abdominal aortic aneurysm. 3. Severe scoliosis and spinal stenosis. 4. Inferior vena cava filter present. Dense coronary calcifications. Abhishek Fontaine MD Objective Remarks GENERAL: male lying in bed SKIN: No rashes, ecchymoses or lesions. Cool and dry. HEAD: Atraumatic. Normocephalic. No temporal or scalp tenderness. EYES: Pupils equal round and reactive. Extraocular motions intact. No scleral icterus. No injection or drainage. ENT: Nose without bleeding, purulent drainage or septal hematoma. Throat without erythema, tonsillar hypertrophy or exudate. Uvula midline. Airway patent. NECK: Trachea midline. No JVD or lymphadenopathy. Supple, nontender, no meningeal signs. CARDIOVASCULAR: Regular rate and rhythm without murmurs, gallops, or rubs. RESPIRATORY: Clear to auscultation. Breath sounds equal bilaterally. No wheezes , rales, or rhonchi. GASTROINTESTINAL: Abdomen soft, non-tender, nondistended. No hepato-splenomegaly , or palpable masses. No guarding. MUSCULOSKELETAL: Extremities without clubbing, cyanosis, or edema. No joint tenderness, effusion, or edema noted. No calf tenderness. NEUROLOGICAL: Awake and alert. Cranial nerves II through XII intact. Motor and sensory grossly within normal limits. Normal speech. A/P Assessment and Plan 1. Urinary tract infection/Sepsis Patient with leukocytosis, febrile to 100.2, tachycardic UA with rare bacteria, moderate leukocyte esterase, 127 RBCs, 35 WBCs Rocephin Urine culture pending Blood cultures pending Monitor for signs of shock 03/08 DC Rocephin and start on ampicillin IV. Urine culture showed E faecalis. 2. RUBEN BUN/creatinine 21/1.47, was 19/1.10 on 02/13/17 IV fluid hydration Monitor renal function Avoid nephrotoxic agents 03/08 Likely prerenal azotemia. RUBEN resolved with IV fluid resuscitation. 3. History of recurrent DVT Anticoagulated on Eliquis, failed Coumadin Status post IVC filter placement 4. Hypertension/hyperlipidemia Continue home medications 03/08 BP stable 5. Chronic back pain Continue home fentanyl patch and Percocet 6. Renal cysts/glomerulonephritis Continue home prednisone CT of the abdomen/pelvis shows numerous bilateral renal cysts and nonobstructing calculi 7. History of abnormal urine cytology Followed as outpatient with urology who recommended repeat cytology in 3 months 8. Hypokalemia Potassium 3.2 Status post by mouth repletion Follow-up [facility] Kayden Barrera MD Mar 09, 2017 09:47
[2017-03-09] MEDS ORDERED: POTASSIUM CHLORIDE 10 MEQ CONTROLLED RELEASE TAB PO ONE (11:15)
--- NOTE | 2017-03-09 12:39 | HHI.PR ---
Subjective Remarks Denies cp/sob, however c/o chills. Afebrile. Objective Vitals Vital Signs Date Time Temp Pulse Resp B/P (MAP) Pulse Ox O2 Delivery O2 Flow Rate FiO2 03/09/17 11:54 96.5 55 18 131/70 (90) 98 03/09/17 08:00 97.4 66 18 128/70 (89) 57 03/09/17 05:17 98.4 64 20 143/79 (100) 94 03/09/17 04:04 75 03/09/17 00:01 64 03/09/17 00:00 98.8 70 20 135/92 (106) 97 03/08/17 21:57 98.3 64 18 126/61 (82) 98 03/08/17 20:15 70 03/08/17 18:29 18 03/08/17 16:11 97.9 60 18 106/52 (70) 94 I/O 03/08/17 03/08/17 03/08/17 03/09/17 03/09/17 03/09/17 07:00 15:00 23:00 07:00 15:00 23:00 Intake Total 100 ml 500 ml Output Total 400 ml Balance 100 ml 100 ml Intake Oral 500 ml IV Total 100 ml Output Urine Total 400 ml # Voids 3 # Bowel Movements 2 0 Result Diagram: 03/09/17 0716 03/09/17 0716 Imaging Last Impressions Chest X-Ray 03/06/17 1607 Signed Impressions: Service Date/Time: Monday, March 06, 2017 16:20 - CONCLUSION: Hypoinflation with no acute cardiopulmonary process. Natalio Gomez MD Abdomen/Pelvis CT 03/06/17 0000 Signed Impressions: Service Date/Time: Monday, March 06, 2017 19:52 - CONCLUSION: 1. Numerous bilateral renal cysts and nonobstructing calculi. 2. 3.6 cm infrarenal abdominal aortic aneurysm. 3. Severe scoliosis and spinal stenosis. 4. Inferior vena cava filter present. Dense coronary calcifications. Abhishek Fontaine MD Objective Remarks GENERAL: male lying in bed SKIN: No rashes, ecchymoses or lesions. Cool and dry. HEAD: Atraumatic. Normocephalic. No temporal or scalp tenderness. EYES: Pupils equal round and reactive. Extraocular motions intact. No scleral icterus. No injection or drainage. ENT: Nose without bleeding, purulent drainage or septal hematoma. Throat without erythema, tonsillar hypertrophy or exudate. Uvula midline. Airway patent. NECK: Trachea midline. No JVD or lymphadenopathy. Supple, nontender, no meningeal signs. CARDIOVASCULAR: Regular rate and rhythm without murmurs, gallops, or rubs. RESPIRATORY: Clear to auscultation. Breath sounds equal bilaterally. No wheezes , rales, or rhonchi. GASTROINTESTINAL: Abdomen soft, non-tender, nondistended. No hepato-splenomegaly , or palpable masses. No guarding. MUSCULOSKELETAL: Extremities without clubbing, cyanosis, or edema. No joint tenderness, effusion, or edema noted. No calf tenderness. NEUROLOGICAL: Awake and alert. Cranial nerves II through XII intact. Motor and sensory grossly within normal limits. Normal speech. Medications and IVs Current Medications Medications (Trade) Dose Ordered Sig/Humble Route Start Time Stop Time Status Last Admin (NS Flush) 2 ml UNSCH PRN IV FLUSH 03/06/17 21:45 (NS Flush) 2 ml BID IV FLUSH 03/07/17 09:00 03/08/17 21:38 (Tylenol) 650 mg Q4H PRN PO 03/06/17 21:45 (Zofran Inj) 4 mg Q6H PRN IVP 03/06/17 21:45 (Narcan Inj) 0.4 mg UNSCH PRN IV PUSH 03/06/17 21:45 (Duoneb Neb) 1 ampule Q4HR NEB PRN NEB 03/06/17 21:45 (Eliquis) 2.5 mg BID PO 03/07/17 09:00 03/09/17 09:29 (Lipitor) 5 mg HS PO 03/07/17 21:00 03/08/17 21:40 (Lasix) 20 mg DAILY PO 03/07/17 09:00 03/09/17 09:29 (Neurontin) 100 mg TID PO 03/07/17 09:00 03/09/17 09:29 (KCl) 10 meq DAILY PO 03/07/17 09:00 03/09/17 09:29 Non-Formulary Medication 0.05 tab DAILY PO 03/07/17 09:00 UNV (Deltasone) 1.25 mg BID PO 03/07/17 09:00 03/09/17 09:30 (Percocet 5-325 Mg) 1 tab Q6H PRN PO 03/07/17 00:00 03/09/17 09:32 (Ambien) 10 mg HS PRN PO 03/07/17 00:00 03/08/17 22:45 Miscellaneous Information 1 Q3D T-DERMAL 03/07/17 00:00 03/07/17 00:00 (Duragesic 75 Mcg Patch.72 Hr) 1 patch Q72H T-DERMAL 03/07/17 00:15 03/07/17 00:15 Ampicillin Sodium 2000 mg/Sodium Chloride 100 ml @ 400 mls/hr Q8H IV 03/07/17 17:00 03/09/17 09:31 A/P Problem List: (1) Sepsis ICD Code: A41.9 - Sepsis, unspecified organism (2) UTI (urinary tract infection) ICD Code: N39.0 - Urinary tract infection, site not specified Status: Acute (3) RUBEN (acute kidney injury) ICD Code: N17.9 - Acute kidney failure, unspecified (4) Glomerulonephritis ICD Code: N05.9 - Unspecified nephritic syndrome with unspecified morphologic changes (5) H/O deep venous thrombosis ICD Code: Z86.718 - Personal history of other venous thrombosis and embolism (6) HTN (hypertension) ICD Code: I10 - Essential (primary) hypertension (7) Hyperlipidemia ICD Code: E78.5 - Hyperlipidemia, unspecified (8) Chronic back pain ICD Code: M54.9 - Dorsalgia, unspecified; G89.29 - Other chronic pain (9) Abnormal urine cytology ICD Code: R82.8 - Abnormal findings on cytological and histological examination of urine Assessment and Plan 1. Urinary tract infection/Sepsis Patient with leukocytosis, febrile to 100.2, tachycardic UA with rare bacteria, moderate leukocyte esterase, 127 RBCs, 35 WBCs Rocephin Urine culture pending Blood cultures pending Monitor for signs of shock 03/08 DC Rocephin and start on ampicillin IV. Urine culture showed E faecalis. 03/09 sepsis has clinically resolved with resolution of leukocytosis, fever and tachycardia. The patient however is current one bottle out of 4 of gram- positive cocci in pairs. I will consult ID and repeat blood cultures. We'll follow up blood cultures and ID recommendations. Continue IV ampicillin. 2. RUBEN BUN/creatinine 21.47, was 19/1.10 on 02/13/17 IV fluid hydration Monitor renal function Avoid nephrotoxic agents 03/08 Likely prerenal azotemia. RUBEN resolved with IV fluid resuscitation. 3. History of recurrent DVT Anticoagulated on Eliquis, failed Coumadin Status post IVC filter placement 4. Hypertension/hyperlipidemia Continue home medications 03/09 BP stable continue hypertensive. Continue to monitor vital signs. 5. Chronic back pain Continue home fentanyl patch and Percocet 03/09 Patient c/o back pain which is not responding to usual medications. Patient requests one dose of IV morphine. I will order a one time dose of 2 mg IV morphine. 6. Renal cysts/glomerulonephritis Continue home prednisone CT of the abdomen/pelvis shows numerous bilateral renal cysts and nonobstructing calculi 7. History of abnormal urine cytology Followed as outpatient with urology who recommended repeat cytology in 3 months 8. Hypokalemia 03/09 k 3.3. Replace orally and monitor BMP. Discharge Planning Continue to monitor on the medical floor. ID consultation placed in pending. Patient with positive blood cultures. Problem Qualifiers (1) UTI (urinary tract infection): Qualified Codes: N39.0 - Urinary tract infection, site not specified; R31.9 - Hematuria, unspecified Kayden Barrera MD Mar 09, 2017 12:39
[2017-03-09] MEDS ORDERED: MORPHINE SULFATE 2 MG/ML INJ IV PUSH ONE (13:30)
[2017-03-09] MEDS ORDERED: BISOPROLOL FUMARATE 5 MG TAB PO SCH (15:00)
[2017-03-09] MEDS ORDERED: HYDROCHLOROTHIAZIDE 12.5 MG CAP PO SCH (15:00)
[2017-03-09] MEDS ORDERED: BISOPROLOL/HCTZ 10 MG/6.25 MG TAB PO SCH (15:09)
[2017-03-09] MEDS: POTASSIUM PHOSPHATE/SODIUM PHOSPHATE 250 MG TAB PO SCH (16:25)
--- NOTE | 2017-03-09 17:07 | PD.ID.CON ---
History of Present Illness Service ID Consult Requested By Dr Pyle Reason for Consult UTI, bactermeia Primary Care Physician Pina Mcmillan MD Diagnoses: History of Present Illness 77 yo male who apparently has h/o recurrent UTIs presented with fevr, chills malaise, confusion and lower abdominal pain for 1 day His UA was cw UTI Urine culture posititve for Enterococcus Blod clx + for Gram positive organism in 02/15 bottle Pt imparoved; on ampicillin Fever resolved Leukocytosis - resolved Also he presented in RUBEN, which now resolved Review of Systems Except as stated in HPI: all other systems reviewed are Neg Past Family Social History Allergies: Coded Allergies: amitriptyline (Unverified Allergy, Severe, 01/15/17) diatrizoate meglumine (Unverified Allergy, Severe, Hypotension, 01/15/17) gadobenic acid (Unverified Allergy, Severe, Hypotension, 01/15/17) gadodiamide (Unverified Allergy, Severe, Hypotension, 01/15/17) gadoteridol (Unverified Allergy, Severe, Hypotension, 01/15/17) iodixanol (Unverified Allergy, Severe, Hypotension, 01/15/17) iohexol (Unverified Allergy, Severe, Hypotension, 01/15/17) pentazocine (Unverified Allergy, Severe, BRADYCARDIA, DECREASE NEURO STATUS, 01/15/17) pregabalin (Unverified Allergy, Severe, 01/15/17) warfarin (Unverified Allergy, Severe, 01/15/17) Past Medical History (Obtained from medical records) Multiple DVTs status post IVC filter, currently on Eliquis History of abnormal urine cytology, currently being followed by urology Anxiety Arthritis Asthma Colon polyps Diverticulosis Glomerulonephritis Hyper parathyroidism Hypertension Irregular heartbeat Kidney cyst Peripheral neuropathy Past Surgical History Cholecystectomy Colonoscopy Multiple abd wall I+D Active Ordered Medications Medications where reviewed in EMR Antibiotics Include: ampicillin Family History reviewed non contributory Social History No Tobacco. No ETOH. No Illicit Drugs. Physical Exam Vital Signs Vital Signs Date Time Temp Pulse Resp B/P (MAP) Pulse Ox O2 Delivery O2 Flow Rate FiO2 03/09/17 16:27 98.5 66 18 111/78 (89) 100 03/09/17 11:54 96.5 55 18 131/70 (90) 98 03/09/17 08:00 97.4 66 18 128/70 (89) 57 03/09/17 05:17 98.4 64 20 143/79 (100) 94 03/09/17 04:04 75 03/09/17 00:01 64 03/09/17 00:00 98.8 70 20 135/92 (106) 97 03/08/17 21:57 98.3 64 18 126/61 (82) 98 03/08/17 20:15 70 03/08/17 18:29 18 Physical Exam CONSTITUTIONAL/GENERAL: This is an obese elderly patient, in no apparent distress. TUBES/LINES/DRAINS: SKIN: No jaundice, rashes, or lesions. Skin temperature appropriate. Not diaphoretic. HEAD: Atraumatic. Normocephalic. EYES: Pupils equal and round and reactive. Extraocular motions intact. No scleral icterus. No injection or drainage. Fundi not examined. ENT: Hearing grossly normal. Nose without bleeding or purulent drainage. Throat without visible erythema, exudates, masses, or lesions. NECK: Trachea midline. Supple, nontender. No palpable thyroid enlargement or nodularity. CARDIOVASCULAR: Regular rate and rhythm without murmurs, gallops, or rubs. No JVD. Peripheral pulses symmetric. RESPIRATORY/CHEST: Symmetric, unlabored respirations. Clear to auscultation. Breath sounds equal bilaterally. No wheezes, rales, or rhonchi. GASTROINTESTINAL: Abdomen soft, non-tender, nondistended. Scar well healed cw his past surgical hx No hepato-splenomegaly, or palpable masses. No guarding. Bowel sounds present. GENITOURINARY: Without palpable bladder distension. MUSCULOSKELETAL: Extremities without clubbing, cyanosis, or edema. No joint tenderness or effusion noted. No calf tenderness. No mottling or clubbing. LYMPHATICS: No palpable cervical or supraclavicular adenopathy. NEUROLOGICAL: Awake and alert. Motor and sensory grossly within normal limits. Follows commands. Clear speech rp. Moves all extremities. PSYCHIATRIC: No obvious anxiety/depression. no apparent hallucinations or other psychotic thought process. Laboratory Laboratory Tests Test 03/08/17 21:20 03/09/17 07:16 Blood Urea Nitrogen 16 13 Creatinine 0.93 0.79 Random Glucose 95 94 Calcium Level 7.9 7.9 Sodium Level 144 146 Potassium Level 3.2 3.3 Chloride Level 110 113 Carbon Dioxide Level 31.7 26.9 Anion Gap 2 6 Estimat Glomerular Filtration Rate 79 96 White Blood Count 5.6 Red Blood Count 3.89 Hemoglobin 11.6 Hematocrit 33.5 Mean Corpuscular Volume 86.2 Mean Corpuscular Hemoglobin 29.8 Mean Corpuscular Hemoglobin Concent 34.6 Red Cell Distribution Width 14.9 Platelet Count 129 Mean Platelet Volume 8.1 Neutrophils (%) (Auto) 58.8 Lymphocytes (%) (Auto) 22.8 Monocytes (%) (Auto) 11.4 Eosinophils (%) (Auto) 6.5 Basophils (%) (Auto) 0.5 Neutrophils # (Auto) 3.3 Lymphocytes # (Auto) 1.3 Monocytes # (Auto) 0.6 Eosinophils # (Auto) 0.4 Basophils # (Auto) 0.0 CBC Comment DIFF FINAL Differential Comment Total Protein 5.6 Albumin 2.8 Phosphorus Level 1.5 Magnesium Level 2.0 Alkaline Phosphatase 38 Aspartate Amino Transf (AST/SGOT) 19 Alanine Aminotransferase (ALT/SGPT) 17 Total Bilirubin 0.4 Date/Time Source Procedure Growth Status 03/09/17 14:53 Blood Peripheral Aerobic Blood Culture Pending Received 03/09/17 14:53 Blood Peripheral Anaerobic Blood Culture Pending Received 03/06/17 17:10 Nasal Aspirate Influenza Types A,B Antigen (SONA) - Final NEGATIVE FOR FLU A AND B ANTIGEN.... Complete 03/06/17 17:00 Urine Catheterized Urine Urine Culture - Final Enterococcus Faecalis Complete Result Diagram: 03/09/17 0716 03/09/17 0716 Imaging Last Impressions Chest X-Ray 03/06/17 1607 Signed Impressions: Service Date/Time: Monday, March 06, 2017 16:20 - CONCLUSION: Hypoinflation with no acute cardiopulmonary process. Natalio Gomez MD Abdomen/Pelvis CT 03/06/17 0000 Signed Impressions: Service Date/Time: Monday, March 06, 2017 19:52 - CONCLUSION: 1. Numerous bilateral renal cysts and nonobstructing calculi. 2. 3.6 cm infrarenal abdominal aortic aneurysm. 3. Severe scoliosis and spinal stenosis. 4. Inferior vena cava filter present. Dense coronary calcifications. Abhishek Fontaine MD Assessment and Plan Assessment and Plan UTI, h/o recurrent UTIS - Ent fecalis S ampicillin Gram postivie bacteremia ? significance - cont ampicillin, incresed to full dose - fu blood clx for further rec's Elvia Dobbs MD Mar 09, 2017 17:07
--- NOTE | 2017-03-09 17:08 | HHI.PR ---
Addendum to Inpatient Note Additional Information Pt seen and examined around 1 pm today full note to follow UTI, enteroccfocal Gram postiive bacteremia - sepsis 2/2 UTI vs contam Elvia Dobbs MD Mar 09, 2017 17:08
[2017-03-09] MEDS ORDERED: AMPICILLIN INJ 2,000 MG in SODIUM CHLORIDE 0.9% INJ 100 ML IV SCH (21:00)
[2017-03-10] VITALS (11 sets, daily range): BP systolic 121–156; BP diastolic 58–78; PULSE 61–98; RESP 18; TEMP 95.9–98.4; O2SAT 95–100
[2017-03-10] MEDS: REMOVE OLD DURAGESIC (FENTANYL) PATCH T-DERMAL SCH
[2017-03-10] MEDS: predniSONE 1 MG TAB PO SCH ×3 (00:03→21:22)
[2017-03-10] MEDS: APIXABAN 2.5 MG TABLET PO SCH ×3 (00:05→21:18)
[2017-03-10] MEDS: ATORVASTATIN 10 MG TAB PO SCH ×2 (00:06→21:20)
[2017-03-10] MEDS: POTASSIUM PHOSPHATE/SODIUM PHOSPHATE 250 MG TAB PO SCH ×4 (00:07→21:18)
[2017-03-10] MEDS: oxyCODONE/ACETAMINOPHEN 5 MG/325 MG TAB PO PRN ×2 (00:08→06:32)
[2017-03-10] MEDS: ZOLPIDEM TARTRATE 10 MG TAB PO PRN (00:08)
[2017-03-10] MEDS: fentaNYL 75 MCG/HR PATCH T-DERMAL SCH (01:17)
[2017-03-10] MEDS: AMPICILLIN INJ 2,000 MG in SODIUM CHLORIDE 0.9% INJ 100 ML IV SCH ×4 (03:57→16:36)
[2017-03-10] MEDS: ONDANSETRON HCL 4 MG/2 ML VIAL IVP PRN (04:29)
[2017-03-10 07:34] LABS: HEMATOCRIT 31.6 % (39.0-51.0); MEAN CELL VOLUME 85.8 FL (80.0-100.0); MEAN CORPUSCULAR HGB CONC 34.9 % (32.0-36.0); MEAN PLATELET VOLUME 8.3 FL (7.0-11.0); PLATELET COUNT 139 TH/MM3 (150-450); RED BLOOD COUNT 3.69 MIL/MM3 (4.50-5.90); RED CELL DISTRIBUTION WIDTH 15.1 % (11.6-17.2); WHITE BLOOD COUNT 5.6 TH/MM3 (4.0-11.0)
[2017-03-10 07:50] LABS: BICARBONATE 28.2 MEQ/L (21.0-32.0); CALCIUM 7.9 MG/DL (8.5-10.1); CREATININE 0.75 MG/DL (0.60-1.30)
[2017-03-10] MEDS: SODIUM CHLORIDE 0.9% FLUSH 10 ML FLUSH IV FLUSH SCH ×2 (08:11→21:17)
[2017-03-10] MEDS ORDERED: HYDROCHLOROTHIAZIDE 25 MG TAB PO SCH (09:00)
[2017-03-10] MEDS ORDERED: PILL SPLITTER OTHER PRN (09:45)
[2017-03-10] MEDS: FUROSEMIDE 20 MG TAB PO SCH (09:51)
[2017-03-10] MEDS: GABAPENTIN 100 MG CAP PO SCH ×3 (09:51→17:48)
[2017-03-10] MEDS: POTASSIUM CHLORIDE 10 MEQ CONTROLLED RELEASE TAB PO SCH (09:51)
[2017-03-10] MEDS ORDERED: POTASSIUM CHLORIDE 10 MEQ CONTROLLED RELEASE TAB PO ONE (10:00)
[2017-03-10] MEDS: BISOPROLOL FUMARATE 5 MG TAB PO SCH (10:16)
--- NOTE | 2017-03-10 11:56 | HHI.PR ---
Subjective Remarks Deferred entry - patient seen at 12:05 pm Patient c/o lower back pain which is not improving with oral medications. Denies cp, sob afebrile still c/o chills low potassium 3.4 Objective Vitals Vital Signs Date Time Temp Pulse Resp B/P (MAP) Pulse Ox O2 Delivery O2 Flow Rate FiO2 03/10/17 11:40 96.3 63 18 143/72 (95) 98 03/10/17 08:19 96.9 66 18 127/74 (91) 96 03/10/17 04:36 81 03/10/17 03:55 98.2 65 18 145/63 (90) 98 03/10/17 00:01 97.0 68 18 124/70 (88) 96 03/10/17 00:00 78 03/09/17 20:18 71 03/09/17 16:27 98.5 66 18 111/78 (89) 100 I/O 03/09/17 03/09/17 03/09/17 03/10/17 03/10/17 03/10/17 07:00 15:00 23:00 07:00 15:00 23:00 Intake Total 500 ml 960 ml 1000 ml Output Total 400 ml 400 ml 175 ml Balance 100 ml 560 ml 825 ml Intake Oral 500 ml 960 ml 1000 ml Output Urine Total 400 ml 400 ml 175 ml # Voids 2 # Bowel Movements 0 Result Diagram: 03/10/17 0711 03/10/17 0711 Imaging Last Impressions Chest X-Ray 03/06/17 1607 Signed Impressions: Service Date/Time: Monday, March 06, 2017 16:20 - CONCLUSION: Hypoinflation with no acute cardiopulmonary process. Natalio Gomez MD Abdomen/Pelvis CT 03/06/17 0000 Signed Impressions: Service Date/Time: Monday, March 06, 2017 19:52 - CONCLUSION: 1. Numerous bilateral renal cysts and nonobstructing calculi. 2. 3.6 cm infrarenal abdominal aortic aneurysm. 3. Severe scoliosis and spinal stenosis. 4. Inferior vena cava filter present. Dense coronary calcifications. Abhishek Fontaine MD Objective Remarks GENERAL: male standing up, reaching his back and complaining of lower back pain which is not responding to oral medications. SKIN: No rashes, ecchymoses or lesions. Cool and dry. HEAD: Atraumatic. Normocephalic. No temporal or scalp tenderness. EYES: Pupils equal round and reactive. Extraocular motions intact. No scleral icterus. No injection or drainage. ENT: Nose without bleeding, purulent drainage or septal hematoma. Throat without erythema, tonsillar hypertrophy or exudate. Uvula midline. Airway patent. NECK: Trachea midline. No JVD or lymphadenopathy. Supple, nontender, no meningeal signs. CARDIOVASCULAR: Regular rate and rhythm without murmurs, gallops, or rubs. RESPIRATORY: Clear to auscultation. Breath sounds equal bilaterally. No wheezes , rales, or rhonchi. GASTROINTESTINAL: Abdomen soft, non-tender, nondistended. No hepato-splenomegaly , or palpable masses. No guarding. MUSCULOSKELETAL: Extremities without clubbing, cyanosis, or edema. No joint tenderness, effusion, or edema noted. No calf tenderness. NEUROLOGICAL: Awake and alert. Cranial nerves II through XII intact. Motor and sensory grossly within normal limits. Normal speech. Procedures none Medications and IVs Current Medications Medications (Trade) Dose Ordered Sig/Humble Route Start Time Stop Time Status Last Admin (NS Flush) 2 ml UNSCH PRN IV FLUSH 03/06/17 21:45 03/10/17 16:35 (NS Flush) 2 ml BID IV FLUSH 03/07/17 09:00 03/10/17 08:11 (Tylenol) 650 mg Q4H PRN PO 03/06/17 21:45 (Zofran Inj) 4 mg Q6H PRN IVP 03/06/17 21:45 03/10/17 04:29 (Narcan Inj) 0.4 mg UNSCH PRN IV PUSH 03/06/17 21:45 (Duoneb Neb) 1 ampule Q4HR NEB PRN NEB 03/06/17 21:45 (Eliquis) 2.5 mg BID PO 03/07/17 09:00 03/10/17 09:50 (Lipitor) 5 mg HS PO 03/07/17 21:00 03/10/17 00:06 (Lasix) 20 mg DAILY PO 03/07/17 09:00 03/10/17 09:51 (Neurontin) 100 mg TID PO 03/07/17 09:00 03/10/17 12:49 (KCl) 10 meq DAILY PO 03/07/17 09:00 03/10/17 09:51 (Deltasone) 1.25 mg BID PO 03/07/17 09:00 03/10/17 09:50 (Percocet 5-325 Mg) 1 tab Q6H PRN PO 03/07/17 00:00 03/10/17 06:32 (Ambien) 10 mg HS PRN PO 03/07/17 00:00 03/10/17 00:08 Miscellaneous Information 1 Q3D T-DERMAL 03/07/17 00:00 03/10/17 00:00 (Duragesic 75 Mcg Patch.72 Hr) 1 patch Q72H T-DERMAL 03/07/17 00:15 03/10/17 01:17 (K-Phos Neutral) 250 mg Q8HR PO 03/09/17 14:00 03/10/17 14:25 (Zebeta) 1.25 mg DAILY PO 03/10/17 09:00 03/10/17 10:16 (Pill Splitter) 1 ea UNSCH PRN OTHER 03/10/17 09:45 Pharmacy Profile Note 0 ml @ 0 mls/hr UNSCH OTHER 03/10/17 12:00 (Morphine Inj) 2 mg Q3H PRN IV PUSH 03/10/17 12:00 Miscellaneous Information SPECIFIC LAB TO BE TANA... ONCE ONCE .XX 03/13/17 12:45 03/13/17 12:46 Vancomycin HCl 1750 mg/Sodium Chloride 517.5 ml @ 257.5 mls/ hr Q24H IV 03/11/17 13:00 (Trimox) 500 mg TID PO 03/10/17 18:00 A/P Problem List: (1) Sepsis ICD Code: A41.9 - Sepsis, unspecified organism (2) UTI (urinary tract infection) ICD Code: N39.0 - Urinary tract infection, site not specified Status: Acute (3) RUBEN (acute kidney injury) ICD Code: N17.9 - Acute kidney failure, unspecified (4) Glomerulonephritis ICD Code: N05.9 - Unspecified nephritic syndrome with unspecified morphologic changes (5) H/O deep venous thrombosis ICD Code: Z86.718 - Personal history of other venous thrombosis and embolism (6) HTN (hypertension) ICD Code: I10 - Essential (primary) hypertension (7) Hyperlipidemia ICD Code: E78.5 - Hyperlipidemia, unspecified (8) Chronic back pain ICD Code: M54.9 - Dorsalgia, unspecified; G89.29 - Other chronic pain (9) Abnormal urine cytology ICD Code: R82.8 - Abnormal findings on cytological and histological examination of urine Assessment and Plan 1. Urinary tract infection/Sepsis Patient with leukocytosis, febrile to 100.2, tachycardic UA with rare bacteria, moderate leukocyte esterase, 127 RBCs, 35 WBCs Rocephin Urine culture pending Blood cultures pending Monitor for signs of shock 03/08 DC Rocephin and start on ampicillin IV. Urine culture showed E faecalis. 03/09 sepsis has clinically resolved with resolution of leukocytosis, fever and tachycardia. The patient however is current one bottle out of 4 of gram- positive cocci in pairs. I will consult ID and repeat blood cultures. We'll follow up blood cultures and ID recommendations. Continue IV ampicillin. 03/10 continue IV ampicillin as per ID recommendations. Cultures is growing MRSA. Start the patient IV vancomycin, pharmacy consulted to help with dosage. Discussed the case with infectious disease, the patient also reported he was treated by Dr. Adrian for chronic draining ulceration with clinical resolution. However there is some redness and swelling for approximately a week which is new. 2. RUBEN BUN/creatinine 21/.47, was 19/1.10 on 02/13/17 IV fluid hydration Monitor renal function Avoid nephrotoxic agents 03/08 Likely prerenal azotemia. RUBEN resolved with IV fluid resuscitation. 3. History of recurrent DVT Anticoagulated on Eliquis, failed Coumadin Status post IVC filter placement 4. Hypertension/hyperlipidemia Continue home medications 03/09 BP stable continue hypertensive. Continue to monitor vital signs. 5. Chronic back pain Continue home fentanyl patch and Percocet 03/09 Patient c/o back pain which is not responding to usual medications. Patient requests one dose of IV morphine. I will order a one time dose of 2 mg IV morphine. 03/10 IV morphine could not be administered yesterday because patient came bradycardic. I will give 1 dose of 2 mg of IV morphine today and place on IV morphine for breakthrough pain with orders not to be given if the patient has a heart rate less than 60. I discussed the case with Dr. Brice from infectious disease. Given the presence of MRSA and increased back pain with decided to order an MRI of the spine, however patient is allergic to contrast so will have to order an MRI of the spine without IV contrast. 6. Renal cysts/glomerulonephritis Continue home prednisone CT of the abdomen/pelvis shows numerous bilateral renal cysts and nonobstructing calculi 7. History of abnormal urine cytology Followed as outpatient with urology who recommended repeat cytology in 3 months 8. Hypokalemia 03/10 K 3.4. Replace orally and monitor BMP. Discharge Planning Continue to monitor on the medical floor. Patient currently on IV antibiotics, MRI of the foot on the spine pending. Problem Qualifiers (1) UTI (urinary tract infection): Qualified Codes: N39.0 - Urinary tract infection, site not specified; R31.9 - Hematuria, unspecified Kayden Barrera MD Mar 10, 2017 11:56
[2017-03-10] MEDS ORDERED: MORPHINE SULFATE 2 MG/ML INJ IV PUSH ONE (12:00)
[2017-03-10] MEDS ORDERED: VANCOMYCIN INJ 1,000 MG in SODIUM CHLOR 0.9% 250 ML INJ 250 ML IV SCH (12:00)
[2017-03-10] MEDS ORDERED: Vancomycin Consult Pharmacy 1 EA OTHER SCH (12:00)
[2017-03-10] MEDS: SODIUM CHLORIDE 0.9% FLUSH 10 ML FLUSH IV FLUSH PRN ×3 (12:14→16:35)
[2017-03-10] MEDS ORDERED: VANCOMYCIN 1,500 MG/NS 500 ML IV ONE ×2 (12:15)
[2017-03-10] MEDS ORDERED: VANCOMYCIN INJ 2,000 MG in SODIUM CHLORID 0.9% 500 ML INJ 500 ML IV ONE (13:00)
--- NOTE | 2017-03-10 17:08 | HHI.IDPN ---
Subjective Subjective Remarks Growing MRSA in 02/15 blood clx co swelling, pain 3 rd R toe Reportedly was treated by Dr Adrian for chronic draining ulceration with clinical resolution Noticed redness, swelling x 1 week - new no temps Antibiotics ampicillin vanco Allergies: Coded Allergies: amitriptyline (Unverified Allergy, Severe, 01/15/17) diatrizoate meglumine (Unverified Allergy, Severe, Hypotension, 01/15/17) gadobenic acid (Unverified Allergy, Severe, Hypotension, 01/15/17) gadodiamide (Unverified Allergy, Severe, Hypotension, 01/15/17) gadoteridol (Unverified Allergy, Severe, Hypotension, 01/15/17) iodixanol (Unverified Allergy, Severe, Hypotension, 01/15/17) iohexol (Unverified Allergy, Severe, Hypotension, 01/15/17) pentazocine (Unverified Allergy, Severe, BRADYCARDIA, DECREASE NEURO STATUS, 01/15/17) pregabalin (Unverified Allergy, Severe, 01/15/17) warfarin (Unverified Allergy, Severe, 01/15/17) Objective . Vital Signs Date Time Temp Pulse Resp B/P (MAP) Pulse Ox O2 Delivery O2 Flow Rate FiO2 03/10/17 16:07 95.9 64 18 121/58 (79) 98 03/10/17 11:40 96.3 63 18 143/72 (95) 98 03/10/17 08:45 74 03/10/17 08:19 96.9 66 18 127/74 (91) 96 03/10/17 04:36 81 03/10/17 03:55 98.2 65 18 145/63 (90) 98 03/10/17 00:01 97.0 68 18 124/70 (88) 96 03/10/17 00:00 78 03/09/17 20:18 71 . Laboratory Tests Test 03/09/17 07:16 03/10/17 07:11 White Blood Count 5.6 TH/MM3 5.6 TH/MM3 Red Blood Count 3.89 MIL/MM3 3.69 MIL/MM3 Hemoglobin 11.6 GM/DL 11.0 GM/DL Hematocrit 33.5 % 31.6 % Mean Corpuscular Volume 86.2 FL 85.8 FL Mean Corpuscular Hemoglobin 29.8 PG 30.0 PG Mean Corpuscular Hemoglobin Concent 34.6 % 34.9 % Red Cell Distribution Width 14.9 % 15.1 % Platelet Count 129 TH/MM3 139 TH/MM3 Mean Platelet Volume 8.1 FL 8.3 FL Neutrophils (%) (Auto) 58.8 % Lymphocytes (%) (Auto) 22.8 % Monocytes (%) (Auto) 11.4 % Eosinophils (%) (Auto) 6.5 % Basophils (%) (Auto) 0.5 % Neutrophils # (Auto) 3.3 TH/MM3 Lymphocytes # (Auto) 1.3 TH/MM3 Monocytes # (Auto) 0.6 TH/MM3 Eosinophils # (Auto) 0.4 TH/MM3 Basophils # (Auto) 0.0 TH/MM3 CBC Comment DIFF FINAL Differential Comment Laboratory Tests Test 03/08/17 21:20 03/09/17 07:16 03/10/17 07:11 Blood Urea Nitrogen 16 MG/DL 13 MG/DL 11 MG/DL Creatinine 0.93 MG/DL 0.79 MG/DL 0.75 MG/DL Random Glucose 95 MG/DL 94 MG/DL 87 MG/DL Calcium Level 7.9 MG/DL 7.9 MG/DL 7.9 MG/DL Sodium Level 144 MEQ/L 146 MEQ/L 143 MEQ/L Potassium Level 3.2 MEQ/L 3.3 MEQ/L 3.4 MEQ/L Chloride Level 110 MEQ/L 113 MEQ/L 109 MEQ/L Carbon Dioxide Level 31.7 MEQ/L 26.9 MEQ/L 28.2 MEQ/L Anion Gap 2 MEQ/L 6 MEQ/L 6 MEQ/L Estimat Glomerular Filtration Rate 79 ML/MIN 96 ML/MIN 102 ML/MIN Total Protein 5.6 GM/DL Albumin 2.8 GM/DL Phosphorus Level 1.5 MG/DL Magnesium Level 2.0 MG/DL Alkaline Phosphatase 38 U/L Aspartate Amino Transf (AST/SGOT) 19 U/L Alanine Aminotransferase (ALT/SGPT) 17 U/L Total Bilirubin 0.4 MG/DL Microbiology Date/Time Source Procedure Growth Status 03/09/17 14:53 Blood Peripheral Aerobic Blood Culture - Preliminary NO GROWTH IN 1 DAY Resulted 03/09/17 14:53 Blood Peripheral Anaerobic Blood Culture - Preliminary NO GROWTH IN 1 DAY Resulted 03/09/17 14:53 Blood Peripheral Aerobic Blood Culture - Preliminary NO GROWTH IN 1 DAY Resulted 03/09/17 14:53 Blood Peripheral Anaerobic Blood Culture - Preliminary NO GROWTH IN 1 DAY Resulted Imaging Last Impressions Chest X-Ray 03/06/17 1607 Signed Impressions: Service Date/Time: Monday, March 06, 2017 16:20 - CONCLUSION: Hypoinflation with no acute cardiopulmonary process. Natalio Gomez MD Abdomen/Pelvis CT 03/06/17 0000 Signed Impressions: Service Date/Time: Monday, March 06, 2017 19:52 - CONCLUSION: 1. Numerous bilateral renal cysts and nonobstructing calculi. 2. 3.6 cm infrarenal abdominal aortic aneurysm. 3. Severe scoliosis and spinal stenosis. 4. Inferior vena cava filter present. Dense coronary calcifications. Abhishek Fontaine MD Physical Exam CONSTITUTIONAL/GENERAL: This is an obese elderly patient, in no apparent distress. TUBES/LINES/DRAINS: SKIN: No jaundice, rashes, or lesions. Skin temperature appropriate. Not diaphoretic. HEAD: Atraumatic. Normocephalic. EYES: Pupils equal and round and reactive. Extraocular motions intact. No scleral icterus. No injection or drainage. Fundi not examined. ENT: Hearing grossly normal. Nose without bleeding or purulent drainage. Throat without visible erythema, exudates, masses, or lesions. NECK: Trachea midline. Supple, nontender. No palpable thyroid enlargement or nodularity. CARDIOVASCULAR: Regular rate and rhythm without murmurs, gallops, or rubs. No JVD. Peripheral pulses symmetric. RESPIRATORY/CHEST: Symmetric, unlabored respirations. Clear to auscultation. Breath sounds equal bilaterally. No wheezes, rales, or rhonchi. GASTROINTESTINAL: Abdomen soft, non-tender, nondistended. Scar well healed cw his past surgical hx No hepato-splenomegaly, or palpable masses. No guarding. Bowel sounds present. MUSCULOSKELETAL: Extremities without clubbing, cyanosis, or edema. No joint tenderness or effusion noted. No calf tenderness. No mottling or clubbing. R 3 rd toe with sauasge shape appearance, swollen, callus on the tip, but no open wouds + eryhema present NEUROLOGICAL: Awake and alert. Motor and sensory grossly within normal limits. Follows commands. Clear speech rp. Moves all extremities. PSYCHIATRIC: No obvious anxiety/depression. no apparent hallucinations or other psychotic thought process. Assessment & Plan Remarks UTI, h/o recurrent UTIS - Ent fecalis S ampicillin MRSA bacteremia ? source Suspected R 3rd toe m oste Gadoliniaum allergy - change ampicillin to amoxicillin - vancomycin 2 D echo non contrasted MRI dw Dr India Dobbs,Elvia Baker MD Mar 10, 2017 17:08
--- NOTE | 2017-03-10 17:43 | HHI.PR ---
Addendum to Inpatient Note Addendum Reason: Additional Documentation Additional Information dw Dr King pt co to him of back pain not relieved by pain medx - will also add non contarsted MRI L spine Elvia Dobbs MD Mar 10, 2017 17:42
[2017-03-10] MEDS: AMOXICILLIN (TRIHYDRATE) 500 MG CAP PO SCH (17:48)
[2017-03-10] MEDS ORDERED: LORazepam 2 MG/ML VIAL IV PUSH ONE (22:15)
[2017-03-11] VITALS (9 sets, daily range): BP systolic 106–154; BP diastolic 51–84; PULSE 61–80; RESP 18–20; TEMP 96.3–98.8; O2SAT 96–100
[2017-03-11] MEDS: ZOLPIDEM TARTRATE 10 MG TAB PO PRN ×2 (00:03→21:25)
[2017-03-11] MEDS: POTASSIUM PHOSPHATE/SODIUM PHOSPHATE 250 MG TAB PO SCH ×3 (05:16→21:24)
[2017-03-11 06:58] LABS: AUTOMATED NEUTROPHIL # 2.8 TH/MM3 (1.8-7.7); BASOPHIL % 0.4 % (0.0-2.0); EOSINOPHIL # 0.3 TH/MM3 (0-0.4); EOSINOPHIL % 5.8 % (0.0-4.0); HEMATOCRIT 33.5 % (39.0-51.0); HEMOGLOBIN 11.6 GM/DL (13.0-17.0); LYMPH % 35.8 % (9.0-44.0); MEAN CELL VOLUME 85.7 FL (80.0-100.0); MEAN CORPUSCULAR HEMOGLOBIN 29.6 PG (27.0-34.0); MEAN CORPUSCULAR HGB CONC 34.5 % (32.0-36.0); MEAN PLATELET VOLUME 8.4 FL (7.0-11.0); MONO % 8.5 % (0.0-8.0); MONOCYTE # 0.5 TH/MM3 (0-0.9); NEUT % 49.5 % (16.0-70.0); PLATELET COUNT 157 TH/MM3 (150-450); RED BLOOD COUNT 3.91 MIL/MM3 (4.50-5.90); RED CELL DISTRIBUTION WIDTH 14.5 % (11.6-17.2); WHITE BLOOD COUNT 5.7 TH/MM3 (4.0-11.0)
[2017-03-11 07:17] LABS: ALT (GPT) 19 U/L (12-78); AST (GOT) 18 U/L (15-37); BICARBONATE 28.4 MEQ/L (21.0-32.0); BLOOD UREA NITROGEN 10 MG/DL (7-18); CHLORIDE 108 MEQ/L (98-107); CREATININE 0.78 MG/DL (0.60-1.30); GLOMERULAR FILTRATION RATE 97 ML/MIN (>89); GLUCOSE,RANDOM 86 MG/DL (74-106); SODIUM (NA) 142 MEQ/L (136-145)
[2017-03-11 07:19] LABS: ALKALINE PHOSPHATASE 41 U/L (45-117); TOTAL BILIRUBIN ADULT 0.8 MG/DL (0.2-1.0); TOTAL PROTEIN 5.7 GM/DL (6.4-8.2)
[2017-03-11] MEDS ORDERED: LORazepam 2 MG/ML VIAL IV PUSH SCH (08:00)
[2017-03-11] MEDS: SODIUM CHLORIDE 0.9% FLUSH 10 ML FLUSH IV FLUSH SCH ×2 (08:05→21:24)
--- NOTE | 2017-03-11 09:18 | RADRPT ---
EXAM DATE/TIME: 03/11/2017 08:30 [facility] COMPARISON: No previous studies available for comparison. INDICATIONS : Pain. MEDICAL HISTORY : Hyperthyroidism. Hypertension. SURGICAL HISTORY : Appendectomy. Fusion, lumbar. Discectomy, lumbar. IVC filter ENCOUNTER: Subsequent ACUITY: 4-6 days PAIN SCORE: 3/10 LOCATION: [facility] TECHNIQUE: Multiplanar multisequence MRI of the lumbar spine was performed without contrast. FINDINGS: Bilateral renal cysts are noted. The most caudal appearing lumbar vertebra is numbered as L5. VERTEBRAE: The lumbar spine demonstrates both significant scoliosis, apex right with a rotatory left component. Posterior fusion of the lumbar spine from L3-S1 with removal of the spinous process and osseous fusio n posteriorly. There is grade one retrolisthesis of L4 on L5 and grade 2 anterolisthesis of L5 on S1 with fusion across the L5/S1 disc space. There is mild edema identified within the L1 and L2 vertebra l bodies adjacent to the endplate. No evidence of insufficiency fracture. CONUS: Normal level and configuration. T12-L1: Broad-based disc bulge. Moderate to severe facet degenerative changes. Mild left-sided neuroforaminal narrowing. L1-L2: Disc desiccation disc space narrowing with a broad-based disc bulge. There is severe bilateral facet degenerative changes and severe right-sided neural foraminal narrowing, mild on the left. Moderate to severe central canal stenosis. L2-L3: Broad-based disc bulge with right lateral disc extrusion. Severe facet degenerative changes. Severe r ight-sided neuroforaminal stenosis and mild on the left. Moderate to severe central canal stenosis. L3-L4: The thecal sac has a normal diameter. No evidence of disc bulge or protrusion. The neural foramina are patent bilaterally. L4-L5: Grade 1 retrolisthesis of L4 on L5 without significant neuroforaminal or spinal canal narrowing. L5-S1: Grade 2 anterolisthesis of L5 on S1 with osseous moderate to severe bilateral neuroforaminal stenosis . CONCLUSION: Scoliosis and grade 1 retrolisthesis of L4 on L5 and grade 2 anterolisthesis of L5 on S1. Multilevel degenerative changes resulting in both spinal canal stenosis as well as predominantly right-sided neuroforaminal stenosis. No evidence of insufficiency fracture. Candace Kaur MD on March 11, 2017 at 9:07 Board Certified Radiologist. This report was verified electronically.
--- NOTE | 2017-03-11 09:41 | RADRPT ---
EXAM DATE/TIME: 03/11/2017 08:30 [facility] COMPARISON: No previous studies available for comparison. INDICATIONS : Osteomyelitis. Right third toe pain and swelling. MEDICAL HISTORY : Hypertension. Hyperparathyroidism. SURGICAL HISTORY : Tonsillectomy. Fusion, lumbar. Discectomy, lumbar. IVC filter ENCOUNTER: Subsequent ACUITY: 4-6 days PAIN SCORE: 3/10 LOCATION: Right foot TECHNIQUE: Multiplanar, multisequence MRI examination was performed without contrast. FINDINGS: BONE/CARTILAGE: Bone marrow signal is homogeneous. Articular cartilage signal is within normal limits. TENDONS: All of the visualized tendons are intact. MISCELLANEOUS: Plantar aponeurosis is intact. Sinus tarsi is within normal limits. There is mild dorsal soft tissue edema overlying the level of the metatarsals. CONCLUSION: No evidence of osteomyelitis. Superficial soft tissue edema is noted overlying the level of the secon d through fourth metatarsals. This may reflect cellulitis. Candace Kaur MD on March 11, 2017 at 9:34 Board Certified Radiologist. This report was verified electronically.
[2017-03-11] MEDS ORDERED: POTASSIUM CHLORIDE 10 MEQ CONTROLLED RELEASE TAB PO ONE (09:45)
[2017-03-11] MEDS: predniSONE 1 MG TAB PO SCH ×2 (09:48→21:24)
[2017-03-11] MEDS: POTASSIUM CHLORIDE 10 MEQ CONTROLLED RELEASE TAB PO SCH (09:48)
[2017-03-11] MEDS: APIXABAN 2.5 MG TABLET PO SCH ×2 (09:48→21:25)
[2017-03-11] MEDS: FUROSEMIDE 20 MG TAB PO SCH (09:48)
[2017-03-11] MEDS: AMOXICILLIN (TRIHYDRATE) 500 MG CAP PO SCH ×3 (09:49→17:53)
[2017-03-11] MEDS: GABAPENTIN 100 MG CAP PO SCH ×3 (09:49→17:53)
[2017-03-11] MEDS: BISOPROLOL FUMARATE 5 MG TAB PO SCH (09:49)
[2017-03-11] MEDS: VANCOMYCIN INJ 1,750 MG in SODIUM CHLORID 0.9% 500 ML INJ 500 ML IV SCH (13:21)
[2017-03-11] MEDS: SODIUM CHLORIDE 0.9% FLUSH 10 ML FLUSH IV FLUSH PRN ×2 (13:23→19:41)
--- NOTE | 2017-03-11 14:08 | HHI.PR ---
Subjective Remarks Denies fevers, states had chills this am afebrile back pain controlled Objective Vitals Vital Signs Date Time Temp Pulse Resp B/P (MAP) Pulse Ox O2 Delivery O2 Flow Rate FiO2 03/11/17 12:44 97.9 62 20 111/56 (74) 98 03/11/17 09:43 96.3 65 18 145/73 (97) 99 03/11/17 04:00 98.8 154/84 (107) 03/10/17 23:00 98.0 98 18 135/78 (97) 95 03/10/17 19:54 98.4 61 18 156/77 (103) 100 03/10/17 16:07 95.9 64 18 121/58 (79) 98 03/10/17 15:06 65 I/O 03/10/17 03/10/17 03/10/17 03/11/17 03/11/17 03/11/17 07:00 15:00 23:00 07:00 15:00 23:00 Intake Total 1000 ml 1340 ml Output Total 175 ml 900 ml Balance 825 ml 440 ml Intake Oral 1000 ml 1340 ml Output Urine Total 175 ml 900 ml # Voids 1 # Bowel Movements 0 Result Diagram: 03/11/17 0530 03/11/17 0530 Imaging Last Impressions Lumbar Spine MRI 03/11/17 0000 Signed Impressions: Service Date/Time: Saturday, March 11, 2017 08:30 - CONCLUSION: Scoliosis and grade 1 retrolisthesis of L4 on L5 and grade 2 anterolisthesis of L5 on S1. Multilevel degenerative changes resulting in both spinal canal stenosis as well as predominantly right-sided neuroforaminal stenosis. No evidence of insufficiency fracture. Candace Kaur MD Foot MRI 03/11/17 0000 Signed Impressions: Service Date/Time: Saturday, March 11, 2017 08:30 - CONCLUSION: No evidence of osteomyelitis. Superficial soft tissue edema is noted overlying the level of the second through fourth metatarsals. This may reflect cellulitis. Candace Kaur MD Chest X-Ray 03/06/17 1607 Signed Impressions: Service Date/Time: Monday, March 06, 2017 16:20 - CONCLUSION: Hypoinflation with no acute cardiopulmonary process. Natalio Gomez MD Abdomen/Pelvis CT 03/06/17 0000 Signed Impressions: Service Date/Time: Monday, March 06, 2017 19:52 - CONCLUSION: 1. Numerous bilateral renal cysts and nonobstructing calculi. 2. 3.6 cm infrarenal abdominal aortic aneurysm. 3. Severe scoliosis and spinal stenosis. 4. Inferior vena cava filter present. Dense coronary calcifications. Abhishek Fontaine MD Objective Remarks GENERAL: male standing up, reaching his back and complaining of lower back pain which is not responding to oral medications. SKIN: No rashes, ecchymoses or lesions. Cool and dry. HEAD: Atraumatic. Normocephalic. No temporal or scalp tenderness. EYES: Pupils equal round and reactive. Extraocular motions intact. No scleral icterus. No injection or drainage. ENT: Nose without bleeding, purulent drainage or septal hematoma. Throat without erythema, tonsillar hypertrophy or exudate. Uvula midline. Airway patent. NECK: Trachea midline. No JVD or lymphadenopathy. Supple, nontender, no meningeal signs. CARDIOVASCULAR: Regular rate and rhythm without murmurs, gallops, or rubs. RESPIRATORY: Clear to auscultation. Breath sounds equal bilaterally. No wheezes , rales, or rhonchi. GASTROINTESTINAL: Abdomen soft, non-tender, nondistended. No hepato-splenomegaly , or palpable masses. No guarding. MUSCULOSKELETAL: Extremities without clubbing, cyanosis, or edema. No joint tenderness, effusion, or edema noted. No calf tenderness. NEUROLOGICAL: Awake and alert. Cranial nerves II through XII intact. Motor and sensory grossly within normal limits. Normal speech. Procedures none Medications and IVs Current Medications Medications (Trade) Dose Ordered Sig/Humble Route Start Time Stop Time Status Last Admin (NS Flush) 2 ml UNSCH PRN IV FLUSH 03/06/17 21:45 03/11/17 13:23 (NS Flush) 2 ml BID IV FLUSH 03/07/17 09:00 03/11/17 08:05 (Tylenol) 650 mg Q4H PRN PO 03/06/17 21:45 (Zofran Inj) 4 mg Q6H PRN IVP 03/06/17 21:45 03/10/17 04:29 (Narcan Inj) 0.4 mg UNSCH PRN IV PUSH 03/06/17 21:45 (Duoneb Neb) 1 ampule Q4HR NEB PRN NEB 03/06/17 21:45 (Eliquis) 2.5 mg BID PO 03/07/17 09:00 03/11/17 09:48 (Lipitor) 5 mg HS PO 03/07/17 21:00 03/10/17 21:20 (Lasix) 20 mg DAILY PO 03/07/17 09:00 03/11/17 09:48 (Neurontin) 100 mg TID PO 03/07/17 09:00 03/11/17 13:22 (KCl) 10 meq DAILY PO 03/07/17 09:00 03/11/17 09:48 (Deltasone) 1.25 mg BID PO 03/07/17 09:00 03/11/17 09:48 (Percocet 5-325 Mg) 1 tab Q6H PRN PO 03/07/17 00:00 03/10/17 06:32 (Ambien) 10 mg HS PRN PO 03/07/17 00:00 03/11/17 00:03 Miscellaneous Information 1 Q3D T-DERMAL 03/07/17 00:00 03/10/17 00:00 (Duragesic 75 Mcg Patch.72 Hr) 1 patch Q72H T-DERMAL 03/07/17 00:15 03/10/17 01:17 (K-Phos Neutral) 250 mg Q8HR PO 03/09/17 14:00 03/11/17 05:16 (Zebeta) 1.25 mg DAILY PO 03/10/17 09:00 03/11/17 09:49 (Pill Splitter) 1 ea UNSCH PRN OTHER 03/10/17 09:45 Pharmacy Profile Note 0 ml @ 0 mls/hr UNSCH OTHER 03/10/17 12:00 (Morphine Inj) 2 mg Q3H PRN IV PUSH 03/10/17 12:00 Miscellaneous Information SPECIFIC LAB TO BE TANA... 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 PUSH 03/11/17 08:00 03/12/17 07:59 03/11/17 08:07 A/P Problem List: (1) Sepsis ICD Code: A41.9 - Sepsis, unspecified organism (2) UTI (urinary tract infection) ICD Code: N39.0 - Urinary tract infection, site not specified Status: Acute (3) RUBEN (acute kidney injury) ICD Code: N17.9 - Acute kidney failure, unspecified (4) Glomerulonephritis ICD Code: N05.9 - Unspecified nephritic syndrome with unspecified morphologic changes (5) H/O deep venous thrombosis ICD Code: Z86.718 - Personal history of other venous thrombosis and embolism (6) HTN (hypertension) ICD Code: I10 - Essential (primary) hypertension (7) Hyperlipidemia ICD Code: E78.5 - Hyperlipidemia, unspecified (8) Chronic back pain ICD Code: M54.9 - Dorsalgia, unspecified; G89.29 - Other chronic pain (9) Abnormal urine cytology ICD Code: R82.8 - Abnormal findings on cytological and histological examination of urine Assessment and Plan 1. Urinary tract infection/Sepsis Patient with leukocytosis, febrile to 100.2, tachycardic UA with rare bacteria, moderate leukocyte esterase, 127 RBCs, 35 WBCs Started on admission on Rocephin 03/08 DC Rocephin and start on ampicillin IV. Urine culture showed E faecalis. 03/09 sepsis has clinically resolved with resolution of leukocytosis, fever and tachycardia. The patient however is current one bottle out of 4 of gram- positive cocci in pairs. I will consult ID and repeat blood cultures. We'll follow up blood cultures and ID recommendations. Continue IV ampicillin. 03/10 continue IV ampicillin as per ID recommendations. Cultures is growing MRSA. Start the patient IV vancomycin, pharmacy consulted to help with dosage. Discussed the case with infectious disease, the patient also reported he was treated by Dr. Adrian for chronic draining ulceration with clinical resolution. However there is some redness and swelling for approximately a week which is new. 03/11 Antibiotics as per ID. Continue IV Vancomycin and IV ampicillin. MRI foot did not show signs of osteomyelitis. MRI of lumbar spine showed spinal canal stenosis but no other signs consistent with osteomyelitis as per report. 2. RUBEN BUN/creatinine 21/1.47, was 19/.10 on 02/13/17 IV fluid hydration Monitor renal function Avoid nephrotoxic agents 03/08 Likely prerenal azotemia. RUBEN resolved with IV fluid resuscitation. 3. History of recurrent DVT Anticoagulated on Eliquis, failed Coumadin Status post IVC filter placement 4. Hypertension/hyperlipidemia Continue home medications 03/09 BP stable continue antihypertensive medications. Continue to monitor vital signs. 5. Chronic back pain Continue home fentanyl patch and Percocet 03/09 Patient c/o back pain which is not responding to usual medications. Patient requests one dose of IV morphine. I will order a one time dose of 2 mg IV morphine. 03/10 IV morphine could not be administered yesterday because patient came bradycardic. I will give 1 dose of 2 mg of IV morphine today and place on IV morphine for breakthrough pain with orders not to be given if the patient has a heart rate less than 60. I discussed the case with Dr. Brice from infectious disease. Given the presence of MRSA and increased back pain with decided to order an MRI of the spine, however patient is allergic to contrast so will have to order an MRI of the spine without IV contrast. 03/11 Pain better controlled. Continue pain control on oral opiates and IV morphine for breakthorugh pain. 6. Renal cysts/glomerulonephritis Continue home prednisone CT of the abdomen/pelvis shows numerous bilateral renal cysts and nonobstructing calculi 7. History of abnormal urine cytology Followed as outpatient with urology who recommended repeat cytology in 3 months 8. Hypokalemia 03/10 K 3.4. Replace orally and monitor BMP. 9. Toe of right foot suspected cellulitis. MRI showed possible cellulitis but no osteo. Will consult podiatry. Discharge Planning Continue to monitor on the medical floor. Patient currently on IV antibiotics, MRI of the foot on the spine pending. Problem Qualifiers (1) UTI (urinary tract infection): Qualified Codes: N39.0 - Urinary tract infection, site not specified; R31.9 - Hematuria, unspecified Kayden Barrera MD Mar 11, 2017 14:08
[2017-03-11] MEDS: oxyCODONE/ACETAMINOPHEN 5 MG/325 MG TAB PO PRN (14:33)
[2017-03-11] MEDS: MORPHINE SULFATE 2 MG/ML INJ IV PUSH PRN (19:42)
[2017-03-11] MEDS: ATORVASTATIN 10 MG TAB PO SCH (21:25)
[2017-03-12] VITALS (7 sets, daily range): BP systolic 125–166; BP diastolic 67–78; PULSE 59–87; RESP 16–21; TEMP 96.8–98.8; O2SAT 94–99
[2017-03-12] MEDS: oxyCODONE/ACETAMINOPHEN 5 MG/325 MG TAB PO PRN ×2 (04:46→18:07)
[2017-03-12] MEDS: POTASSIUM PHOSPHATE/SODIUM PHOSPHATE 250 MG TAB PO SCH ×3 (04:46→21:43)
[2017-03-12 07:25] LABS: BICARBONATE 27.8 MEQ/L (21.0-32.0); CALCIUM 8.6 MG/DL (8.5-10.1); CREATININE 0.77 MG/DL (0.60-1.30)
[2017-03-12] MEDS: FUROSEMIDE 20 MG TAB PO SCH (11:11)
[2017-03-12] MEDS: BISOPROLOL FUMARATE 5 MG TAB PO SCH (11:11)
[2017-03-12] MEDS: POTASSIUM CHLORIDE 10 MEQ CONTROLLED RELEASE TAB PO SCH (11:11)
[2017-03-12] MEDS: APIXABAN 2.5 MG TABLET PO SCH ×2 (11:12→20:02)
[2017-03-12] MEDS: AMOXICILLIN (TRIHYDRATE) 500 MG CAP PO SCH ×3 (11:12→18:00)
[2017-03-12] MEDS: predniSONE 1 MG TAB PO SCH ×2 (11:12→20:02)
[2017-03-12] MEDS: GABAPENTIN 100 MG CAP PO SCH ×3 (11:12→17:59)
[2017-03-12] MEDS: SODIUM CHLORIDE 0.9% FLUSH 10 ML FLUSH IV FLUSH SCH ×2 (11:12→20:03)
[2017-03-12] MEDS: MORPHINE SULFATE 2 MG/ML INJ IV PUSH PRN ×2 (11:13→19:59)
--- NOTE | 2017-03-12 14:04 | HHI.IDPN ---
Subjective Subjective Remarks toe is better Severe lower back pain Allergies history discussed with pt, present. Pt told me that he had allergic reaction following cardiac cath. Denies MRI problems Non contrasted MRI of the back and toe are negative Antibiotics amoxicillin vanco Allergies: Coded Allergies: amitriptyline (Unverified Allergy, Severe, 01/15/17) diatrizoate meglumine (Unverified Allergy, Severe, Hypotension, 01/15/17) gadobenic acid (Unverified Allergy, Severe, Hypotension, 01/15/17) gadodiamide (Unverified Allergy, Severe, Hypotension, 01/15/17) gadoteridol (Unverified Allergy, Severe, Hypotension, 01/15/17) iodixanol (Unverified Allergy, Severe, Hypotension, 01/15/17) iohexol (Unverified Allergy, Severe, Hypotension, 01/15/17) pentazocine (Unverified Allergy, Severe, BRADYCARDIA, DECREASE NEURO STATUS, 01/15/17) pregabalin (Unverified Allergy, Severe, 01/15/17) warfarin (Unverified Allergy, Severe, 01/15/17) Objective . Vital Signs Date Time Temp Pulse Resp B/P (MAP) Pulse Ox O2 Delivery O2 Flow Rate FiO2 03/12/17 12:00 96.8 87 20 144/72 (96) 99 03/12/17 07:22 97.4 59 18 138/67 (90) 98 03/12/17 04:42 98.8 64 19 166/76 (106) 96 03/11/17 23:17 98.1 61 18 106/51 (69) 97 03/11/17 22:52 Nasal Cannula 2.00 03/11/17 22:50 96 21 03/11/17 20:53 98.4 68 18 147/68 (94) 98 03/11/17 17:09 97.9 80 20 112/60 (77) 100 03/11/17 15:02 75 . Laboratory Tests Test 03/11/17 05:30 White Blood Count 5.7 TH/MM3 Red Blood Count 3.91 MIL/MM3 Hemoglobin 11.6 GM/DL Hematocrit 33.5 % Mean Corpuscular Volume 85.7 FL Mean Corpuscular Hemoglobin 29.6 PG Mean Corpuscular Hemoglobin Concent 34.5 % Red Cell Distribution Width 14.5 % Platelet Count 157 TH/MM3 Mean Platelet Volume 8.4 FL Neutrophils (%) (Auto) 49.5 % Lymphocytes (%) (Auto) 35.8 % Monocytes (%) (Auto) 8.5 % Eosinophils (%) (Auto) 5.8 % Basophils (%) (Auto) 0.4 % Neutrophils # (Auto) 2.8 TH/MM3 Lymphocytes # (Auto) 2.0 TH/MM3 Monocytes # (Auto) 0.5 TH/MM3 Eosinophils # (Auto) 0.3 TH/MM3 Basophils # (Auto) 0.0 TH/MM3 CBC Comment DIFF FINAL Differential Comment Laboratory Tests Test 03/11/17 05:30 03/12/17 05:47 Blood Urea Nitrogen 10 MG/DL 12 MG/DL Creatinine 0.78 MG/DL 0.77 MG/DL Random Glucose 86 MG/DL 107 MG/DL Total Protein 5.7 GM/DL Albumin 3.0 GM/DL Calcium Level 8.0 MG/DL 8.6 MG/DL Alkaline Phosphatase 41 U/L Aspartate Amino Transf (AST/SGOT) 18 U/L Alanine Aminotransferase (ALT/SGPT) 19 U/L Total Bilirubin 0.8 MG/DL Sodium Level 142 MEQ/L 142 MEQ/L Potassium Level 3.4 MEQ/L 3.7 MEQ/L Chloride Level 108 MEQ/L 107 MEQ/L Carbon Dioxide Level 28.4 MEQ/L 27.8 MEQ/L Anion Gap 6 MEQ/L 7 MEQ/L Estimat Glomerular Filtration Rate 97 ML/MIN 98 ML/MIN Microbiology Date/Time Source Procedure Growth Status 03/10/17 23:53 Blood Peripheral Aerobic Blood Culture - Preliminary NO GROWTH IN 1 DAY Resulted 03/10/17 23:53 Blood Peripheral Anaerobic Blood Culture - Preliminary NO GROWTH IN 1 DAY Resulted 03/10/17 17:09 Blood Peripheral Aerobic Blood Culture - Preliminary NO GROWTH IN 1 DAY Resulted 03/10/17 17:09 Blood Peripheral Anaerobic Blood Culture - Preliminary NO GROWTH IN 1 DAY Resulted 03/09/17 14:53 Blood Peripheral Aerobic Blood Culture - Preliminary NO GROWTH IN 3 DAYS Resulted 03/09/17 14:53 Blood Peripheral Anaerobic Blood Culture - Preliminary NO GROWTH IN 3 DAYS Resulted 03/09/17 14:53 Blood Peripheral Aerobic Blood Culture - Preliminary NO GROWTH IN 3 DAYS Resulted 03/09/17 14:53 Blood Peripheral Anaerobic Blood Culture - Preliminary NO GROWTH IN 3 DAYS Resulted Imaging Last Impressions Lumbar Spine MRI 03/11/17 0000 Signed Impressions: Service Date/Time: Saturday, March 11, 2017 08:30 - CONCLUSION: Scoliosis and grade 1 retrolisthesis of L4 on L5 and grade 2 anterolisthesis of L5 on S1. Multilevel degenerative changes resulting in both spinal canal stenosis as well as predominantly right-sided neuroforaminal stenosis. No evidence of insufficiency fracture. Candace Kaur MD Foot MRI 03/11/17 0000 Signed Impressions: Service Date/Time: Saturday, March 11, 2017 08:30 - CONCLUSION: No evidence of osteomyelitis. Superficial soft tissue edema is noted overlying the level of the second through fourth metatarsals. This may reflect cellulitis. Candace Kaur MD Chest X-Ray 03/06/17 1607 Signed Impressions: Service Date/Time: Monday, March 06, 2017 16:20 - CONCLUSION: Hypoinflation with no acute cardiopulmonary process. Natalio Gomez MD Abdomen/Pelvis CT 03/06/17 0000 Signed Impressions: Service Date/Time: Monday, March 06, 2017 19:52 - CONCLUSION: 1. Numerous bilateral renal cysts and nonobstructing calculi. 2. 3.6 cm infrarenal abdominal aortic aneurysm. 3. Severe scoliosis and spinal stenosis. 4. Inferior vena cava filter present. Dense coronary calcifications. Abhishek Fontaine MD Physical Exam CONSTITUTIONAL/GENERAL: This is an obese elderly patient, in no apparent distress. TUBES/LINES/DRAINS: SKIN: No jaundice, rashes, or lesions. Skin temperature appropriate. Not diaphoretic. EYES: Pupils equal and round and reactive. Extraocular motions intact. No scleral icterus. No injection or drainage. Fundi not examined. ENT: Hearing grossly normal. Nose without bleeding or purulent drainage. Throat without visible erythema, exudates, masses, or lesions. CARDIOVASCULAR: Regular rate and rhythm without murmurs, gallops, or rubs. No JVD. Peripheral pulses symmetric. RESPIRATORY/CHEST: Symmetric, unlabored respirations. Clear to auscultation. Breath sounds equal bilaterally. No wheezes, rales, or rhonchi. GASTROINTESTINAL: Abdomen soft, non-tender, nondistended. Scar well healed cw his past surgical hx No hepato-splenomegaly, or palpable masses. No guarding. Bowel sounds present. MUSCULOSKELETAL: Extremities without clubbing, cyanosis, or edema. No joint tenderness or effusion noted. No calf tenderness. No mottling or clubbing. R 3 rd toe with sauasge shape appearance, swollen, callus on the tip, but no open wouds eryhema resolved No open wounds or drainage NEUROLOGICAL: Awake and alert. Motor and sensory grossly within normal limits. Follows commands. Clear speech rp. Moves all extremities. PSYCHIATRIC: No obvious anxiety/depression. no apparent hallucinations or other psychotic thought process. Assessment & Plan Remarks UTI, h/o recurrent UTIS - Ent fecalis S ampicillin MRSA bacteremia ? source Suspected R 3rd toe m oste Gadolinium allergy was listed but not confirmed Pt reports only problem with contrast received during cardiac cath - cont amoxicillin - cont vancomycin - fu 2 D echo - contrasted MRI dw Dr Edenilson Dobbs,Elvia Baker MD Mar 12, 2017 14:04
--- NOTE | 2017-03-12 15:07 | HHI.PR ---
Addendum to Inpatient Note Addendum Reason: Additional Documentation Additional Information Spoke with Dr. Dobbs from infectious disease. Had Dr. Dobbs order Ceretec labeled white blood cell scan to rule out infection in the toe. I will see the patient on Sunday. Jason Alfred DPM Mar 12, 2017 15:07
[2017-03-12] MEDS: VANCOMYCIN INJ 1,750 MG in SODIUM CHLORID 0.9% 500 ML INJ 500 ML IV SCH (15:21)
[2017-03-12] MEDS ORDERED: LORazepam 2 MG/ML VIAL IV ONE (15:45)
--- NOTE | 2017-03-12 17:54 | HHI.PR ---
Subjective Remarks deferred entry - patient seen at 11:50 am Patient states feels better, however c/o severe back pain. Denies fevers or chills Objective Vitals Vital Signs Date Time Temp Pulse Resp B/P (MAP) Pulse Ox O2 Delivery O2 Flow Rate FiO2 03/12/17 13:13 98.1 72 16 125/73 (90) 97 03/12/17 12:00 96.8 87 20 144/72 (96) 99 03/12/17 07:22 97.4 59 18 138/67 (90) 98 03/12/17 04:42 98.8 64 19 166/76 (106) 96 03/11/17 23:17 98.1 61 18 106/51 (69) 97 03/11/17 22:52 Nasal Cannula 2.00 03/11/17 22:50 96 21 03/11/17 20:53 98.4 68 18 147/68 (94) 98 I/O 03/11/17 03/11/17 03/11/17 03/12/17 03/12/17 03/12/17 07:00 15:00 23:00 07:00 15:00 23:00 Intake Total 500 ml Output Total 1000 ml Balance -500 ml IV Total 500 ml Output Urine Total 1000 ml Result Diagram: 03/11/17 0530 03/12/17 0547 Imaging Last Impressions Lumbar Spine MRI 03/11/17 0000 Signed Impressions: Service Date/Time: Saturday, March 11, 2017 08:30 - CONCLUSION: Scoliosis and grade 1 retrolisthesis of L4 on L5 and grade 2 anterolisthesis of L5 on S1. Multilevel degenerative changes resulting in both spinal canal stenosis as well as predominantly right-sided neuroforaminal stenosis. No evidence of insufficiency fracture. Candace Kaur MD Foot MRI 03/11/17 0000 Signed Impressions: Service Date/Time: Saturday, March 11, 2017 08:30 - CONCLUSION: No evidence of osteomyelitis. Superficial soft tissue edema is noted overlying the level of the second through fourth metatarsals. This may reflect cellulitis. Candace Kaur MD Chest X-Ray 03/06/17 1607 Signed Impressions: Service Date/Time: Monday, March 06, 2017 16:20 - CONCLUSION: Hypoinflation with no acute cardiopulmonary process. Natalio Gomez MD Abdomen/Pelvis CT 03/06/17 0000 Signed Impressions: Service Date/Time: Monday, March 06, 2017 19:52 - CONCLUSION: 1. Numerous bilateral renal cysts and nonobstructing calculi. 2. 3.6 cm infrarenal abdominal aortic aneurysm. 3. Severe scoliosis and spinal stenosis. 4. Inferior vena cava filter present. Dense coronary calcifications. Abhishek Fontaine MD Objective Remarks GENERAL: male standing up, reaching his back and complaining of lower back pain which is not responding to oral medications. SKIN: No rashes, ecchymoses or lesions. Cool and dry. HEAD: Atraumatic. Normocephalic. No temporal or scalp tenderness. EYES: Pupils equal round and reactive. Extraocular motions intact. No scleral icterus. No injection or drainage. ENT: Nose without bleeding, purulent drainage or septal hematoma. Throat without erythema, tonsillar hypertrophy or exudate. Uvula midline. Airway patent. NECK: Trachea midline. No JVD or lymphadenopathy. Supple, nontender, no meningeal signs. CARDIOVASCULAR: Regular rate and rhythm without murmurs, gallops, or rubs. RESPIRATORY: Clear to auscultation. Breath sounds equal bilaterally. No wheezes , rales, or rhonchi. GASTROINTESTINAL: Abdomen soft, non-tender, nondistended. No hepato-splenomegaly , or palpable masses. No guarding. MUSCULOSKELETAL: Extremities without clubbing, cyanosis, or edema. No joint tenderness, effusion, or edema noted. No calf tenderness. NEUROLOGICAL: Awake and alert. Cranial nerves II through XII intact. Motor and sensory grossly within normal limits. Normal speech. Procedures none Medications and IVs Current Medications Medications (Trade) Dose Ordered Sig/Humble Route Start Time Stop Time Status Last Admin (NS Flush) 2 ml UNSCH PRN IV FLUSH 03/06/17 21:45 03/11/17 19:41 (NS Flush) 2 ml BID IV FLUSH 03/07/17 09:00 03/12/17 11:12 (Tylenol) 650 mg Q4H PRN PO 03/06/17 21:45 (Zofran Inj) 4 mg Q6H PRN IVP 03/06/17 21:45 03/10/17 04:29 (Narcan Inj) 0.4 mg UNSCH PRN IV PUSH 03/06/17 21:45 (Duoneb Neb) 1 ampule Q4HR NEB PRN NEB 03/06/17 21:45 (Eliquis) 2.5 mg BID PO 03/07/17 09:00 03/12/17 11:12 (Lipitor) 5 mg HS PO 03/07/17 21:00 03/11/17 21:25 (Lasix) 20 mg DAILY PO 03/07/17 09:00 03/12/17 11:11 (Neurontin) 100 mg TID PO 03/07/17 09:00 03/12/17 14:17 (KCl) 10 meq DAILY PO 03/07/17 09:00 03/12/17 11:11 (Deltasone) 1.25 mg BID PO 03/07/17 09:00 03/12/17 11:12 (Percocet 5-325 Mg) 1 tab Q6H PRN PO 03/07/17 00:00 03/12/17 04:46 (Ambien) 10 mg HS PRN PO 03/07/17 00:00 03/11/17 21:25 Miscellaneous Information 1 Q3D T-DERMAL 03/07/17 00:00 03/10/17 00:00 (Duragesic 75 Mcg Patch.72 Hr) 1 patch Q72H T-DERMAL 03/07/17 00:15 03/10/17 01:17 (K-Phos Neutral) 250 mg Q8HR PO 03/09/17 14:00 03/12/17 15:21 (Zebeta) 1.25 mg DAILY PO 03/10/17 09:00 03/12/17 11:11 (Pill Splitter) 1 ea UNSCH PRN OTHER 03/10/17 09:45 Pharmacy Profile Note 0 ml @ 0 mls/hr UNSCH OTHER 03/10/17 12:00 (Morphine Inj) 2 mg Q3H PRN IV PUSH 03/10/17 12:00 03/12/17 11:13 Miscellaneous Information SPECIFIC LAB TO BE TANA... ONCE ONCE .XX 03/13/17 12:45 03/13/17 12:46 Vancomycin HCl 1750 mg/Sodium Chloride 517.5 ml @ 257.5 mls/ hr Q24H IV 03/11/17 13:00 03/12/17 15:21 (Trimox) 500 mg TID PO 03/10/17 18:00 03/12/17 15:20 A/P Problem List: (1) Sepsis ICD Code: A41.9 - Sepsis, unspecified organism (2) UTI (urinary tract infection) ICD Code: N39.0 - Urinary tract infection, site not specified Status: Acute (3) RUBEN (acute kidney injury) ICD Code: N17.9 - Acute kidney failure, unspecified (4) Glomerulonephritis ICD Code: N05.9 - Unspecified nephritic syndrome with unspecified morphologic changes (5) H/O deep venous thrombosis ICD Code: Z86.718 - Personal history of other venous thrombosis and embolism (6) HTN (hypertension) ICD Code: I10 - Essential (primary) hypertension (7) Hyperlipidemia ICD Code: E78.5 - Hyperlipidemia, unspecified (8) Chronic back pain ICD Code: M54.9 - Dorsalgia, unspecified; G89.29 - Other chronic pain (9) Abnormal urine cytology ICD Code: R82.8 - Abnormal findings on cytological and histological examination of urine Assessment and Plan 1. Urinary tract infection/Sepsis Patient with leukocytosis, febrile to 100.2, tachycardic UA with rare bacteria, moderate leukocyte esterase, 127 RBCs, 35 WBCs Started on admission on Rocephin 03/08 DC Rocephin and start on ampicillin IV. Urine culture showed E faecalis. 03/09 sepsis has clinically resolved with resolution of leukocytosis, fever and tachycardia. The patient however is current one bottle out of 4 of gram- positive cocci in pairs. I will consult ID and repeat blood cultures. We'll follow up blood cultures and ID recommendations. Continue IV ampicillin. 03/10 continue IV ampicillin as per ID recommendations. Cultures is growing MRSA. Start the patient IV vancomycin, pharmacy consulted to help with dosage. Discussed the case with infectious disease, the patient also reported he was treated by Dr. Adrian for chronic draining ulceration with clinical resolution. However there is some redness and swelling for approximately a week which is new. 03/11 Antibiotics as per ID. Continue IV Vancomycin and IV ampicillin. MRI foot did not show signs of osteomyelitis. MRI of lumbar spine showed spinal canal stenosis but no other signs consistent with osteomyelitis as per report. 03/12 discussed the case with infectious disease. The patient actually had an allergy to iodine contrast after cardiac catheter. Dr. Dobbs ordered an MRI of the lumbar spine with and without IV contrast and canceled previously ordered [facility] white blood cell tag study. 2. RUBEN BUN/creatinine 21.47, was 19/1.10 on 02/13/17 IV fluid hydration Monitor renal function Avoid nephrotoxic agents 03/08 Likely prerenal azotemia. RUBEN resolved with IV fluid resuscitation. 3. History of recurrent DVT Anticoagulated on Eliquis, failed Coumadin Status post IVC filter placement 4. Hypertension/hyperlipidemia Continue home medications BP stable continue antihypertensive medications. Continue to monitor vital signs. 5. Chronic back pain Continue home fentanyl patch and Percocet 03/09 Patient c/o back pain which is not responding to usual medications. Patient requests one dose of IV morphine. I will order a one time dose of 2 mg IV morphine. 03/10 IV morphine could not be administered yesterday because patient came bradycardic. I will give 1 dose of 2 mg of IV morphine today and place on IV morphine for breakthrough pain with orders not to be given if the patient has a heart rate less than 60. I discussed the case with Dr. Brice from infectious disease. Given the presence of MRSA and increased back pain with decided to order an MRI of the spine, however patient is allergic to contrast so will have to order an MRI of the spine without IV contrast. Pain better controlled. Continue pain control on oral opiates and IV morphine for breakthorugh pain. 6. Renal cysts/glomerulonephritis Continue home prednisone CT of the abdomen/pelvis shows numerous bilateral renal cysts and nonobstructing calculi 7. History of abnormal urine cytology Followed as outpatient with urology who recommended repeat cytology in 3 months 8. Hypokalemia 03/10 K 3.4. Replace orally and monitor BMP. 03/12 with anemia resolved. K3.7 today. Continue to monitor BMP and replace as needed. 9. Toe of right foot suspected cellulitis. MRI showed possible cellulitis but no osteo. Will consult podiatry. Discharge Planning Continue to monitor on the medical floor. Patient currently on IV antibiotics, MRI of the foot on the spine pending. Problem Qualifiers (1) UTI (urinary tract infection): Qualified Codes: N39.0 - Urinary tract infection, site not specified; R31.9 - Hematuria, unspecified Kayden Barrera MD Mar 12, 2017 17:54
[2017-03-12] MEDS: METHOCARBAMOL 500 MG TAB PO SCH (18:13)
[2017-03-12] MEDS: ATORVASTATIN 10 MG TAB PO SCH (20:03)
[2017-03-13] VITALS (11 sets, daily range): BP systolic 120–165; BP diastolic 64–92; PULSE 58–87; RESP 18–20; TEMP 97.5–98.8; O2SAT 95–98
[2017-03-13] MEDS: REMOVE OLD DURAGESIC (FENTANYL) PATCH T-DERMAL SCH
[2017-03-13] MEDS: ZOLPIDEM TARTRATE 10 MG TAB PO PRN ×2 (00:22→22:54)
[2017-03-13] MEDS: fentaNYL 75 MCG/HR PATCH T-DERMAL SCH (00:23)
[2017-03-13] MEDS: oxyCODONE/ACETAMINOPHEN 5 MG/325 MG TAB PO PRN ×4 (00:24→20:05)
[2017-03-13] MEDS: METHOCARBAMOL 500 MG TAB PO SCH ×3 (05:54→22:05)
[2017-03-13] MEDS: POTASSIUM PHOSPHATE/SODIUM PHOSPHATE 250 MG TAB PO SCH ×3 (05:54→22:05)
[2017-03-13] MEDS: ONDANSETRON HCL 4 MG/2 ML VIAL IVP PRN (06:32)
[2017-03-13] MEDS: SODIUM CHLORIDE 0.9% FLUSH 10 ML FLUSH IV FLUSH SCH ×2 (07:22→19:52)
[2017-03-13 07:56] LABS: AUTOMATED NEUTROPHIL # 3.9 TH/MM3 (1.8-7.7); BASOPHIL % 0.4 % (0.0-2.0); EOSINOPHIL # 0.3 TH/MM3 (0-0.4); EOSINOPHIL % 4.3 % (0.0-4.0); HEMATOCRIT 32.4 % (39.0-51.0); HEMOGLOBIN 11.2 GM/DL (13.0-17.0); LYMPH % 34.7 % (9.0-44.0); LYMPHOCYTE # 2.6 TH/MM3 (1.0-4.8); MEAN CELL VOLUME 86.6 FL (80.0-100.0); MEAN CORPUSCULAR HEMOGLOBIN 29.9 PG (27.0-34.0); MEAN CORPUSCULAR HGB CONC 34.5 % (32.0-36.0); MEAN PLATELET VOLUME 8.3 FL (7.0-11.0); MONO % 7.6 % (0.0-8.0); MONOCYTE # 0.6 TH/MM3 (0-0.9); PLATELET COUNT 160 TH/MM3 (150-450); RED BLOOD COUNT 3.74 MIL/MM3 (4.50-5.90); RED CELL DISTRIBUTION WIDTH 14.8 % (11.6-17.2); WHITE BLOOD COUNT 7.4 TH/MM3 (4.0-11.0)
[2017-03-13 08:22] LABS: ALT (GPT) 20 U/L (12-78); AST (GOT) 14 U/L (15-37); BICARBONATE 29.5 MEQ/L (21.0-32.0); BLOOD UREA NITROGEN 14 MG/DL (7-18); CALCIUM 8.3 MG/DL (8.5-10.1); CHLORIDE 107 MEQ/L (98-107); CREATININE 0.93 MG/DL (0.60-1.30); GLOMERULAR FILTRATION RATE 79 ML/MIN (>89); GLUCOSE,RANDOM 77 MG/DL (74-106); SODIUM (NA) 143 MEQ/L (136-145)
[2017-03-13 08:25] LABS: ALKALINE PHOSPHATASE 39 U/L (45-117); TOTAL BILIRUBIN ADULT 0.6 MG/DL (0.2-1.0); TOTAL PROTEIN 5.4 GM/DL (6.4-8.2)
--- NOTE | 2017-03-13 08:27 | HHI.PR ---
Subjective Remarks This is a pleasant 77 y/o Male with multiple DVT history, status post IVC filter anticoagulated on Eliquis he has Hypertension, Glomerulonephritis and CAD was brought to the emergency department by his for a history of fever, chills, found UTI on admission, sepsis, ID specialist following. seen in his bedroom, no nausea, vomit or diarrhea. asked for Physical Therapy and case management manager for discharge, had MRI of the Lumbar area today did not found infection. Objective Vital Signs Date Time Temp Pulse Resp B/P (MAP) Pulse Ox O2 Delivery O2 Flow Rate FiO2 03/13/17 04:00 98.4 61 20 165/92 (116) 95 03/13/17 03:45 67 03/13/17 00:05 61 03/13/17 00:00 98.8 87 19 161/90 (113) 98 03/13/17 00:00 Room Air 03/12/17 21:53 68 03/12/17 20:00 Room Air 03/12/17 20:00 98.0 77 21 127/78 (94) 94 03/12/17 16:00 76 03/12/17 13:13 98.1 72 16 125/73 (90) 97 03/12/17 12:00 96.8 87 20 144/72 (96) 99 I/O 03/12/17 03/12/17 03/12/17 03/13/17 03/13/17 03/13/17 07:00 15:00 23:00 07:00 15:00 23:00 Intake Total 480 ml Output Total 3 ml Balance 477 ml Intake Oral 480 ml Output Urine Total 3 ml # Bowel Movements 0 Result Diagram: 03/13/17 0530 03/13/17 0530 Imaging Last Impressions Lumbar Spine MRI 03/11/17 0000 Signed Impressions: Service Date/Time: Saturday, March 11, 2017 08:30 - CONCLUSION: Scoliosis and grade 1 retrolisthesis of L4 on L5 and grade 2 anterolisthesis of L5 on S1. Multilevel degenerative changes resulting in both spinal canal stenosis as well as predominantly right-sided neuroforaminal stenosis. No evidence of insufficiency fracture. Candace Kaur MD Foot MRI 03/11/17 0000 Signed Impressions: Service Date/Time: Saturday, March 11, 2017 08:30 - CONCLUSION: No evidence of osteomyelitis. Superficial soft tissue edema is noted overlying the level of the second through fourth metatarsals. This may reflect cellulitis. Candace Kaur MD Chest X-Ray 03/06/17 1607 Signed Impressions: Service Date/Time: Monday, March 06, 2017 16:20 - CONCLUSION: Hypoinflation with no acute cardiopulmonary process. Natalio Gomez MD Abdomen/Pelvis CT 03/06/17 0000 Signed Impressions: Service Date/Time: Monday, March 06, 2017 19:52 - CONCLUSION: 1. Numerous bilateral renal cysts and nonobstructing calculi. 2. 3.6 cm infrarenal abdominal aortic aneurysm. 3. Severe scoliosis and spinal stenosis. 4. Inferior vena cava filter present. Dense coronary calcifications. Abhishek Fontaine MD Procedures None Other Results Laboratory Tests Test 03/06/17 17:00 03/06/17 17:10 03/09/17 07:16 03/13/17 05:30 Urine Color YELLOW Urine Turbidity CLEAR Urine pH 7.0 Urine Specific Emery 1.015 Urine Protein 30 mg/dL Urine Glucose (UA) NEG mg/dL Urine Ketones NEG mg/dL Urine Occult Blood MOD Urine Nitrite NEG Urine Bilirubin NEG Urine Urobilinogen LESS THAN 2.0 MG/DL Urine Leukocyte Esterase MOD Urine RBC 127 /hpf Urine WBC 35 /hpf Urine Squamous Epithelial Cells <1 /hpf Urine Amorphous Sediment RARE Urine Bacteria RARE /hpf Urine Mucus FEW /lpf Microscopic Urinalysis Comment CATH-CULTURE IND Prothrombin Time 11.0 SEC Prothromb Time International Ratio 1.1 RATIO Activated Partial Thromboplast Time 24.7 SEC Lactic Acid Level 1.8 mmol/L Blood Urea Nitrogen 13 MG/DL 14 MG/DL Creatinine 0.79 MG/DL 0.93 MG/DL Random Glucose 94 MG/DL 77 MG/DL Total Protein 5.6 GM/DL 5.4 GM/DL Albumin 2.8 GM/DL 3.0 GM/DL Calcium Level 7.9 MG/DL 8.3 MG/DL Phosphorus Level 1.5 MG/DL Magnesium Level 2.0 MG/DL Alkaline Phosphatase 38 U/L 39 U/L Aspartate Amino Transf (AST/SGOT) 19 U/L 14 U/L Alanine Aminotransferase (ALT/SGPT) 17 U/L 20 U/L Total Bilirubin 0.4 MG/DL 0.6 MG/DL Sodium Level 146 MEQ/L 143 MEQ/L Potassium Level 3.3 MEQ/L 3.7 MEQ/L Chloride Level 113 MEQ/L 107 MEQ/L Carbon Dioxide Level 26.9 MEQ/L 29.5 MEQ/L White Blood Count 7.4 TH/MM3 Red Blood Count 3.74 MIL/MM3 Hemoglobin 11.2 GM/DL Hematocrit 32.4 % Mean Corpuscular Volume 86.6 FL Mean Corpuscular Hemoglobin 29.9 PG Mean Corpuscular Hemoglobin Concent 34.5 % Red Cell Distribution Width 14.8 % Platelet Count 160 TH/MM3 Mean Platelet Volume 8.3 FL Neutrophils (%) (Auto) 53.0 % Lymphocytes (%) (Auto) 34.7 % Monocytes (%) (Auto) 7.6 % Eosinophils (%) (Auto) 4.3 % Basophils (%) (Auto) 0.4 % Neutrophils # (Auto) 3.9 TH/MM3 Lymphocytes # (Auto) 2.6 TH/MM3 Monocytes # (Auto) 0.6 TH/MM3 Eosinophils # (Auto) 0.3 TH/MM3 Basophils # (Auto) 0.0 TH/MM3 CBC Comment DIFF FINAL Differential Comment Anion Gap 7 MEQ/L Estimat Glomerular Filtration Rate 79 ML/MIN Objective Remarks GENERAL: No acute distress. SKIN: No rashes, ecchymoses or lesions. Cool and dry. HEAD: Atraumatic. Normocephalic. No temporal or scalp tenderness. EYES: Pupils equal round and reactive. Extraocular motions intact. No scleral icterus. No injection or drainage. ENT: Nose without bleeding, purulent drainage or septal hematoma. Throat without erythema, tonsillar hypertrophy or exudate. Uvula midline. Airway patent. NECK: Trachea midline. No JVD or lymphadenopathy. Supple, nontender, no meningeal signs. CARDIOVASCULAR: Regular rate and rhythm without murmurs, gallops, or rubs. RESPIRATORY: Clear to auscultation. Breath sounds equal bilaterally. No wheezes , rales, or rhonchi. GASTROINTESTINAL: Abdomen soft, non-tender, nondistended. No hepato-splenomegaly , or palpable masses. No guarding. MUSCULOSKELETAL: Extremities without clubbing, cyanosis, or edema. No joint tenderness, effusion, or edema noted. No calf tenderness. NEUROLOGICAL: Awake and alert. Cranial nerves II through XII intact. Motor and sensory grossly within normal limits. Normal speech. Medications and IVs Current Medications Medications (Trade) Dose Ordered Sig/Humble Route Start Time Stop Time Status Last Admin (NS Flush) 2 ml UNSCH PRN IV FLUSH 03/06/17 21:45 03/11/17 19:41 (NS Flush) 2 ml BID IV FLUSH 03/07/17 09:00 03/13/17 07:22 (Tylenol) 650 mg Q4H PRN PO 03/06/17 21:45 (Zofran Inj) 4 mg Q6H PRN IVP 03/06/17 21:45 03/13/17 06:32 (Narcan Inj) 0.4 mg UNSCH PRN IV PUSH 03/06/17 21:45 (Duoneb Neb) 1 ampule Q4HR NEB PRN NEB 03/06/17 21:45 (Eliquis) 2.5 mg BID PO 03/07/17 09:00 03/12/17 20:02 (Lipitor) 5 mg HS PO 03/07/17 21:00 03/12/17 20:03 (Lasix) 20 mg DAILY PO 03/07/17 09:00 03/12/17 11:11 (Neurontin) 100 mg TID PO 03/07/17 09:00 03/12/17 17:59 (KCl) 10 meq DAILY PO 03/07/17 09:00 03/12/17 11:11 (Deltasone) 1.25 mg BID PO 03/07/17 09:00 03/12/17 20:02 (Percocet 5-325 Mg) 1 tab Q6H PRN PO 03/07/17 00:00 03/13/17 05:54 (Ambien) 10 mg HS PRN PO 03/07/17 00:00 03/13/17 00:22 Miscellaneous Information 1 Q3D T-DERMAL 03/07/17 00:00 03/13/17 00:00 (Duragesic 75 Mcg Patch.72 Hr) 1 patch Q72H T-DERMAL 03/07/17 00:15 03/13/17 00:23 (K-Phos Neutral) 250 mg Q8HR PO 03/09/17 14:00 03/13/17 05:54 (Zebeta) 1.25 mg DAILY PO 03/10/17 09:00 03/12/17 11:11 (Pill Splitter) 1 ea UNSCH PRN OTHER 03/10/17 09:45 Pharmacy Profile Note 0 ml @ 0 mls/hr UNSCH OTHER 03/10/17 12:00 (Morphine Inj) 2 mg Q3H PRN IV PUSH 03/10/17 12:00 03/12/17 19:59 Miscellaneous Information SPECIFIC LAB TO BE TANA... ONCE ONCE .XX 03/13/17 12:45 03/13/17 12:46 Vancomycin HCl 1750 mg/Sodium Chloride 517.5 ml @ 257.5 mls/ hr Q24H IV 03/11/17 13:00 03/12/17 15:21 (Trimox) 500 mg TID PO 03/10/17 18:00 03/12/17 15:20 (Robaxin) 500 mg Q8HR PO 03/12/17 18:00 03/13/17 05:54 A/P Assessment and Plan (1) Sepsis ICD Code: A41.9 - Sepsis, unspecified organism (2) UTI (urinary tract infection) ICD Code: N39.0 - Urinary tract infection, site not specified Status: Acute (3) RUBEN (acute kidney injury) ICD Code: N17.9 - Acute kidney failure, unspecified (4) Glomerulonephritis ICD Code: N05.9 - Unspecified nephritic syndrome with unspecified morphologic changes (5) H/O deep venous thrombosis ICD Code: Z86.718 - Personal history of other venous thrombosis and embolism (6) HTN (hypertension) ICD Code: I10 - Essential (primary) hypertension (7) Hyperlipidemia ICD Code: E78.5 - Hyperlipidemia, unspecified (8) Chronic back pain ICD Code: M54.9 - Dorsalgia, unspecified; G89.29 - Other chronic pain (9) Abnormal urine cytology ICD Code: R82.8 - Abnormal findings on cytological and histological examination of urine 1. Urinary tract infection recurrent UTI/enterococcus faecalis sensitive to Ampicillin MRSA Bacteremia not found source/Leukocytosis, Fever and Tachycardia UA with rare bacteria, moderate leukocyte esterase, 127 RBCs, 35 WBCs Started on admission on Rocephin then Ampicillin IV, Vancomycin IV, 03/08 DC Rocephin and start on ampicillin IV. Urine culture showed E faecalis. MRI foot did not show signs of osteomyelitis. MRI of lumbar spine showed spinal canal stenosis but no other signs consistent with osteomyelitis as per report. MRI of lumbar spine did not found mass or infectioni, 2. RUBEN Improved. 3. History of recurrent DVT Anticoagulated on Eliquis, failed Coumadin Status post IVC filter placement 4. Hypertension/hyperlipidemia Continue home medications 5. Chronic back pain Continue home fentanyl patch and Percocet 6. Renal cysts/glomerulonephritis Continue home prednisone CT of the abdomen/pelvis shows numerous bilateral renal cysts and nonobstructing calculi 7. History of abnormal urine cytology Followed as outpatient with urology who recommended repeat cytology in 3 months 8. Right third toe Hammertoe, status post MRI showed possible Cellulitis but no osteomyelitis, consulted Podiatry specialist. DVT prophylaxis with Eliquis Discharge Planning once cleared by ID specialist. Otilio Tejada MD Mar 13, 2017 08:27
[2017-03-13] MEDS ORDERED: LORazepam 2 MG/ML VIAL IV SCH (08:30)
[2017-03-13] MEDS: POTASSIUM CHLORIDE 10 MEQ CONTROLLED RELEASE TAB PO SCH (08:48)
[2017-03-13] MEDS: GABAPENTIN 100 MG CAP PO SCH ×3 (08:48→17:18)
[2017-03-13] MEDS: FUROSEMIDE 20 MG TAB PO SCH (08:48)
[2017-03-13] MEDS: AMOXICILLIN (TRIHYDRATE) 500 MG CAP PO SCH ×3 (08:48→17:18)
[2017-03-13] MEDS: BISOPROLOL FUMARATE 5 MG TAB PO SCH (08:48)
[2017-03-13] MEDS: predniSONE 1 MG TAB PO SCH ×2 (08:48→20:05)
[2017-03-13] MEDS: APIXABAN 2.5 MG TABLET PO SCH ×2 (08:48→20:05)
[2017-03-13] MEDS ORDERED: GADODIAMIDE PF 287 MG/ML 20 ML VIAL (for RAD MRI) IVCONTRAST ONE (09:47)
--- NOTE | 2017-03-13 10:30 | RADRPT ---
EXAM DATE/TIME: 03/13/2017 09:16 [facility] COMPARISON: CT ABDOMEN & PELVIS W/O CONTRAST, March 06, 2017, 19:52. MRI LUMBAR SPINE W/O CONTRAST, February, 8:30. INDICATIONS : Sepsis with severe back pain. CONTRAST: 19 cc Omniscan (gadodiamide) IV MEDICAL HISTORY : Hypothyroidism. Hypertension. Nephritis, mersa SURGICAL HISTORY : Appendectomy. Fusion, lumbar. Discectomy, lumbar. IVC filter ENCOUNTER: Subsequent ACUITY: 1 week PAIN SCORE: 3/10 LOCATION: lumbar TECHNIQUE: Multiplanar multisequence MRI of the lumbar spine was performed with and without contrast. FINDINGS: Examination is stable relative to MRI of the lumbar spine which was performed February. A gain noted is significant scoliosis of the lumbar spine posterior fusion L3-S1 with a grade 1 retroli sthesis L4 on L5 and grade 2 anterior effaces L5 on S1. Multilevel degenerative disc disease is appre ciated. Spinal stenosis is previously described particularly at levels L1-2 and L2-3 are again noted. There is no evidence of mass, fluid collection or abscess forma tion and no evidence of enhancing abnormality with contrast of the bony structures or soft tissues. CONCLUSION: Degenerative and post surgical abnormalities of the lumbar spine as noted on MRI without contrast 03 March 2017. No evidence of enhancement to indicate area of infection with no evidence of mass, absc ess, or fluid collection. Gorge De Jesus MD on March 13, 2017 at 10:19 Board Certified Radiologist. This report was verified electronically.
[2017-03-13] MEDS: MORPHINE SULFATE 2 MG/ML INJ IV PUSH PRN ×2 (11:16→22:13)
[2017-03-13] MEDS ORDERED: PHARMACY ORDERED LAB ONE (12:45)
[2017-03-13] MEDS: VANCOMYCIN INJ 1,750 MG in SODIUM CHLORID 0.9% 500 ML INJ 500 ML IV SCH (13:42)
--- NOTE | 2017-03-13 15:01 | RADRPT ---
EXAM DATE/TIME: 03/12/2017 15:27 [facility] COMPARISON: MRI FOOT RIGHT W/O CONTRAST, March 11, 2017, 8:30. INDICATIONS : Right third toe pain and swelling. DOSE: 21.3 mCi Tc99m Ceretec labeled white blood cells IV SPECT IMAGIN hrs IMAGNG: SPECT/CT imaging with fusion was performed. RADIATION DOSE: 1.53 CTDIvol (mGy) MEDICAL HISTORY : Renal failure, chrnoic. Hypercholesterolemia. Hypertension. SURGICAL HISTORY : Appendectomy. Fusion, lumbar. ENCOUNTER: Initial ACUITY: 1 week PAIN SCALE: 3/10 LOCATION: Right Toe. TECHNIQUE: Following the in vitro labeling of autologous white cells and reinjection, whole body scan was perfor med at the specified times. SPECT imaging was performed at the specified time in sagittal, axial and coronal planes. Attenuation correction was performed with the computed tomography and both the atten uation correction and non-attenuation corrected data sets were reviewed. FINDINGS: There is no abnormal biodistribution of radiotracer. CONCLUSION: No focal uptake to suggest osteomyelitis. Jason Echeverria MD on March 13, 2017 at 14:55 Board Certified Radiologist. This report was verified electronically.
--- NOTE | 2017-03-13 17:12 | PD.POD.CON ---
Patient Intake Chief Complaint Sepsis possibly secondary to third toe right ulceration and infection Consult Requested by Dr. Pyle Reason for Consult Evaluation as source of sepsis, third toe right foot Primary Care Physician Pina Mcmillan MD History of Present Illness Patient is a 77-year-old male admitted with sepsis. Patient had an open wound of the third toe the right foot and infectious disease was worried that it was the focus of his infection. Patient has had a wound in the area off and on for many years. Ceretec labeled white blood cell scan was negative for soft tissue or bone infection. Coded Allergies: Iodinated Contrast- Oral and IV Dye (Verified Allergy, Severe, 03/13/17) ALLERGY DURING HEART CATH YEARS AGO PER PATIENT amitriptyline (Unverified Allergy, Severe, 01/15/17) diatrizoate meglumine (Unverified Allergy, Severe, Hypotension, 01/15/17) iodixanol (Unverified Allergy, Severe, Hypotension, 01/15/17) iohexol (Unverified Allergy, Severe, Hypotension, 01/15/17) pentazocine (Unverified Allergy, Severe, BRADYCARDIA, DECREASE NEURO STATUS, 01/15/17) pregabalin (Unverified Allergy, Severe, 01/15/17) warfarin (Unverified Allergy, Severe, 01/15/17) Preferred Language to Discuss: Frisian Barriers to Learning: None Teaching Method: Discussion Vital Signs Date Time Temp Pulse Resp B/P (MAP) Pulse Ox O2 Delivery O2 Flow Rate FiO2 03/13/17 12:03 98.0 62 20 124/75 (91) 97 03/13/17 08:03 97.5 68 18 150/84 (106) 97 03/13/17 07:47 58 03/13/17 04:00 98.4 61 20 165/92 (116) 95 03/13/17 03:45 67 03/13/17 00:05 61 03/13/17 00:00 98.8 87 19 161/90 (113) 98 03/13/17 00:00 Room Air 03/12/17 21:53 68 03/12/17 20:00 Room Air 03/12/17 20:00 98.0 77 21 127/78 (94) 94 Pain scale used: 0-10 numeric scale Pain score: 0 Medications Current Medications Ceftriaxone Sodium 1000 mg/ Sodium Chloride 100 ml @ 200 mls/hr ONCE ONCE IV Last administered on 03/06/17at 19:45; Start 03/06/17 at 19:30; Stop 03/06/17 at 19:59; Status DC Sodium Chloride 1,000 ml @ 999 mls/hr BOLUS ONCE IV Last administered on 03/06at 19:45; Start 03/06/17 at 19:30; Stop 03/06/17 at 20:30; Status DC Ondansetron HCl (Zofran Inj) 4 mg ONCE ONCE IV PUSH Last administered on at 20:22; Start 03/06/17 at 20:00; Stop 03/06/17 at 20:01; Status DC Acetaminophen (Tylenol) 650 mg ONCE ONCE PO Last administered on 03/06/17at 20: 28; Start 03/06/17 at 20:15; Stop 03/06/17 at 20:16; Status DC Nitrofurantoin Macrocrystals (Macrobid) 100 mg ONCE ONCE PO Last administered on 03/06/17at 20:28; Start 03/06/17 at 20:15; Stop 03/06/17 at 20:16; Status DC Potassium Chloride (KCl) 40 meq ONCE ONCE PO Last administered on 03/06/17at 20 :58; Start 03/06/17 at 20:45; Stop 03/06/17 at 20:46; Status DC Sodium Chloride (NS Flush) 2 ml UNSCH PRN IV FLUSH FLUSH AFTER USING IV ACCESS Last administered on 03/11/17at 19:41; Start 03/06/17 at 21:45 Sodium Chloride (NS Flush) 2 ml BID IV FLUSH Last administered on 03/13/17at 07: 22; Start 03/07/17 at 09:00 Acetaminophen (Tylenol) 650 mg Q4H PRN PO TEMP > 100.4; Start 03/06/17 at 21:45 Ondansetron HCl (Zofran Inj) 4 mg Q6H PRN IVP NAUSEA OR VOMITING Last administered on 03/13/17at 06:32; Start 03/06/17 at 21:45 Heparin Sodium (Porcine) (Heparin Inj) 5,000 units Q8H SQ ; Start 03/06/17 at 21 :45; Stop 03/06/17 at 21:45; Status DC Naloxone HCl (Narcan Inj) 0.4 mg UNSCH PRN IV PUSH SEE LABEL COMMENTS; Start at 21:45 Ceftriaxone Sodium 1000 mg/ Sodium Chloride 100 ml @ 200 mls/hr Q24H IV ; Start 03/06/17 at 21:45; Stop 03/06/17 at 21:45; Status DC Ceftriaxone Sodium 1000 mg/ Sodium Chloride 100 ml @ 200 mls/hr Q24H IV ; Start 03/07/17 at 21:45; Stop 03/07/17 at 21:45; Status DC Albuterol/ Ipratropium (Duoneb Neb) 1 ampule Q4HR NEB PRN NEB SOB/WHEEZING; Start 03/06/17 at 21:45 Apixaban (Eliquis) 2.5 mg BID PO Last administered on 03/13/17at 08:48; Start at 09:00 Atorvastatin Calcium (Lipitor) 5 mg HS PO Last administered on 03/12/17at 20:03 ; Start 03/07/17 at 21:00 Furosemide (Lasix) 20 mg DAILY PO Last administered on 03/13/17at 08:48; Start 03/07/17 at 09:00 Gabapentin (Neurontin) 100 mg TID PO Last administered on 03/13/17at 13:42; Start 03/07/17 at 09:00 Potassium Chloride (KCl) 10 meq DAILY PO Last administered on 03/13/17at 08:48; Start 03/07/17 at 09:00 Non-Formulary Medication 0.5 tab DAILY PO ; Start 03/07/17 at 09:00; Status UNV Prednisone (Deltasone) 1.25 mg BID PO Last administered on 03/13/17at 08:48; Start 03/07/17 at 09:00 Fentanyl (Duragesic 75 Mcg Patch.72 Hr) 75 patch Q72H T-DERMAL ; Start at 00:00; Stop 03/07/17 at 00:06; Status DC Oxycodone/ Acetaminophen (Percocet 5-325 Mg) 1 tab Q6H PRN PO PAIN > 4 Last administered on 03/13/17at 13:47; Start 03/07/17 at 00:00 Zolpidem Tartrate (Ambien) 10 mg HS PRN PO INSOMNIA Last administered on at 00:22; Start 03/07/17 at 00:00 Miscellaneous Information 1 Q3D T-DERMAL Last administered on 03/13/17at 00:00; Start 03/07/17 at 00:00 Fentanyl (Duragesic 75 Mcg Patch.72 Hr) 1 patch Q72H T-DERMAL Last administered on 03/13/17at 00:23; Start 03/07/17 at 00:15 Sodium Chloride 1,000 ml @ 120 mls/hr Q8H20M IV Last administered on at 05:00; Start 03/07/17 at 05:15; Stop 03/09/17 at 09:47; Status DC Ampicillin Sodium 2000 mg/Sodium Chloride 100 ml @ 400 mls/hr Q8H IV Last administered on 03/09/17at 09:31; Start 03/07/17 at 17:00; Stop 03/09/17 at 17:10 ; Status DC Potassium Chloride (KCl) 30 meq ONCE ONCE PO Last administered on 03/09/17at 12 :30; Start 03/09/17 at 11:15; Stop 03/09/17 at 11:16; Status DC Morphine Sulfate (Morphine Inj) 2 mg ONCE ONCE IV PUSH ; Start 03/09/17 at 13: 30; Stop 03/09/17 at 13:31; Status DC Potassium Phos/ Sodium Phos (K-Phos Neutral) 250 mg Q8HR PO Last administered on 03/13/17at 13:42; Start 03/09/17 at 14:00 Bisoprolol Fumarate (Zebeta) 2.5 mg DAILY PO ; Start 03/09/17 at 15:00; Status Cancel Hydrochlorothiazide (Microzide) 6.25 mg DAILY PO ; Start 03/09/17 at 15:00; Status Cancel Bisoprolol Fumarate/HCTZ (Ziac 10-6.25 Mg) 0.5 tab DAILY PO ; Start 03/09/17 at 15:09; Status Cancel Bisoprolol Fumarate (Zebeta) 1.25 mg DAILY PO Last administered on 03/13/17at 08 :48; Start 03/10/17 at 09:00 Hydrochlorothiazide (Hydrodiuril) 3.125 mg DAILY PO ; Start 03/10/17 at 09:00; Stop 03/10/17 at 09:46; Status DC Ampicillin Sodium 2000 mg/Sodium Chloride 100 ml @ 400 mls/hr Q4H IV Last administered on 03/09/17at 23:58; Start 03/09/17 at 21:00; Stop 03/10/17 at 00:44 ; Status DC Ampicillin Sodium 2000 mg/Sodium Chloride 100 ml @ 400 mls/hr Q4H IV Last administered on 03/10/17at 16:36; Start 03/10/17 at 04:00; Stop 03/10/17 at 17:11 ; Status DC Miscellaneous (Pill Splitter) 1 ea UNSCH PRN OTHER SEE LABEL COMMENTS; Start at 09:45 Potassium Chloride (KCl) 30 meq ONCE ONCE PO Last administered on 03/10/17at 10 :17; Start 03/10/17 at 10:00; Stop 03/10/17 at 10:01; Status DC Vancomycin HCl 1000 mg/Sodium Chloride 250 ml @ 250 mls/hr Q12H IV ; Start at 12:00; Status UNV Pharmacy Profile Note 0 ml @ 0 mls/hr UNSCH OTHER ; Start 03/10/17 at 12:00 Morphine Sulfate (Morphine Inj) 2 mg ONCE ONCE IV PUSH Last administered on at 12:18; Start 03/10/17 at 12:00; Stop 03/10/17 at 12:02; Status DC Morphine Sulfate (Morphine Inj) 2 mg Q3H PRN IV PUSH BREAKTHROUGH PAIN Last administered on 03/13/17at 11:16; Start 03/10/17 at 12:00 Vancomycin HCl 1500 mg/Sodium Chloride 515 ml @ 257.5 mls/ hr ONCE ONCE IV ; Start 03/10/17 at 12:15; Stop 03/10/17 at 12:15; Status DC Vancomycin HCl 2000 mg/Sodium Chloride 520 ml @ 257.5 mls/ hr ONCE ONCE IV Last administered on 03/10/17at 13:47; Start 03/10/17 at 13:00; Stop 03/10/17 at 15:01; Status DC Miscellaneous Information SPECIFIC LAB TO BE TANA... ONCE ONCE .XX Last administered on 03/13/17at 12:45; Start 03/13/17 at 12:45; Stop 03/13/17 at 12:46 ; Status DC Vancomycin HCl 1750 mg/Sodium Chloride 517.5 ml @ 257.5 mls/ hr Q24H IV Last administered on 03/13/17at 13:42; Start 03/11/17 at 13:00 Amoxicillin (Trimox) 500 mg TID PO Last administered on 03/13/17at 13:42; Start 03/10/17 at 18:00 Lorazepam (Ativan Inj) 1 mg ONCE ONCE IV PUSH ; Start 03/10/17 at 22:15; Stop 03/10/17 at 22:16; Status DC Lorazepam (Ativan Inj) 1 mg EPITAXIAL REACTOR OPERATOR IV PUSH Last administered on 03/11/17at 08: 07; Start 03/11/17 at 08:00; Stop 03/12/17 at 07:59; Status DC Potassium Chloride (KCl) 30 meq ONCE ONCE PO Last administered on 03/11/17at 11 :18; Start 03/11/17 at 09:45; Stop 03/11/17 at 09:46; Status DC Lorazepam (Ativan Inj) 1 mg NOW ONCE IV ; Start 03/12/17 at 15:45; Stop at 15:46; Status DC Methocarbamol (Robaxin) 500 mg Q8HR PO Last administered on 03/13/17at 13:43; Start 03/12/17 at 18:00 Lorazepam (Ativan Inj) 1 mg UNSCH X1 IV Last administered on 03/13/17at 08:47; Start 03/13/17 at 08:30; Stop 03/13/17 at 23:59 Gadodiamide (Omniscan Pf Inj) 19 ml STK-MED ONCE IVCONTRAST Last administered on 03/13/17at 09:47; Start 03/13/17 at 09:47; Stop 03/13/17 at 09:48; Status DC Past, Family & Social History Past Medical History PFSH Reviewed: Yes Endocrine: REPORTS HX OF: Other endocrine history Cardiovascular: REPORTS HX OF: Hyperlipidemia, Hypertension Genitourinary: REPORTS HX OF: Kidney disease, Kidney stones, Past UTI Musculoskeletal: REPORTS HX OF: Osteoarthritis Infectious Disease: REPORTS HX OF: MRSA Disabilities: REPORTS HX OF: Hearing deficit Past Surgical History Gastrointestinal: REPORTS HX OF: Hernia repair (x 6 ) Family Medical History Cardiac arrest G8 FATHER Substance Use Substance Use: Denies use Review of Systems Musculoskeletal: COMPLAINS OF: Deformaties Exam-Podiatry Constitutional General appearance: comfortable Nutritional status: overweight Orientation: alert and oriented x3 Dermatological Exam Skin Temp - Right: Within Normal Limits Skin Texture - Right: Within Normal Limits Skin Elasticity - Right: Within Normal Limits Skin Tugor - Right: Within Normal Limits Hair Growth - Right: Within Normal Limits Pigmentation - Right: Within Normal Limits Skin Temp - Left: Within Normal Limits Skin Texture - Left: Within Normal Limits Skin Elasticity - Left: Within Normal Limits Skin Tugor - Left: Within Normal Limits Hair Growth - Left: Within Normal Limits Pigmentation - Left: Within Normal Limits Ulcers: Location/Measurements No open lesions at this time Abnormal Nail Conditions Distal: Toe #3 (R) Vascular/Lymphatic Exam R Dorsails Pedis: Palpable L Dorsails Pedis: Palpable R Posterior Tibial: Palpable L Posterior Tibial: Palpable Neurologic Exam Present on right: Tingling, Paraesthesia Present on left: Tingling, Paraesthesia Muscle Strength Dorsiflexion (Right): Normal Plantarflexion (Right): Normal Inversion (Right): Normal Eversion (Right): Normal Digital (Right): Normal Dorsiflexion (Left): Normal Plantarflexion (Left): Normal Inversion (Left): Normal Eversion (Left): Normal Digital (Left): Normal Foot Range of Motion Dorsiflexion (Right): Normal Plantarflexion (Right): Normal Inversion (Right): Normal Eversion (Right): Normal Digital (Right): Normal Dorsiflexion (Left): Normal Plantarflexion (Left): Normal Inversion (Left): Normal Eversion (Left): Normal Digital (Left): Normal Joint Instability Hammer Toe: Toe #5 (R), Toe #4 (R), Toe #3 (R), Toe #2 (R), Toe #2 (L), Toe # 3 (L), Toe #4 (L), Toe #5 (L) Lab and Radiology Results Laboratory Laboratory Tests Test 03/13/17 05:30 White Blood Count 7.4 TH/MM3 Red Blood Count 3.74 MIL/MM3 Hemoglobin 11.2 GM/DL Hematocrit 32.4 % Mean Corpuscular Volume 86.6 FL Mean Corpuscular Hemoglobin 29.9 PG Mean Corpuscular Hemoglobin Concent 34.5 % Red Cell Distribution Width 14.8 % Platelet Count 160 TH/MM3 Mean Platelet Volume 8.3 FL Neutrophils (%) (Auto) 53.0 % Lymphocytes (%) (Auto) 34.7 % Monocytes (%) (Auto) 7.6 % Eosinophils (%) (Auto) 4.3 % Basophils (%) (Auto) 0.4 % Neutrophils # (Auto) 3.9 TH/MM3 Lymphocytes # (Auto) 2.6 TH/MM3 Monocytes # (Auto) 0.6 TH/MM3 Eosinophils # (Auto) 0.3 TH/MM3 Basophils # (Auto) 0.0 TH/MM3 CBC Comment DIFF FINAL Differential Comment Laboratory Tests Test 03/12/17 05:47 03/13/17 05:30 Blood Urea Nitrogen 12 MG/DL 14 MG/DL Creatinine 0.77 MG/DL 0.93 MG/DL Random Glucose 107 MG/DL 77 MG/DL Calcium Level 8.6 MG/DL 8.3 MG/DL Sodium Level 142 MEQ/L 143 MEQ/L Potassium Level 3.7 MEQ/L 3.7 MEQ/L Chloride Level 107 MEQ/L 107 MEQ/L Carbon Dioxide Level 27.8 MEQ/L 29.5 MEQ/L Anion Gap 7 MEQ/L 7 MEQ/L Estimat Glomerular Filtration Rate 98 ML/MIN 79 ML/MIN Total Protein 5.4 GM/DL Albumin 3.0 GM/DL Alkaline Phosphatase 39 U/L Aspartate Amino Transf (AST/SGOT) 14 U/L Alanine Aminotransferase (ALT/SGPT) 20 U/L Total Bilirubin 0.6 MG/DL Microbiology Date/Time Source Procedure Growth Status 03/10/17 23:53 Blood Peripheral Aerobic Blood Culture - Preliminary NO GROWTH IN 2 DAYS Resulted 03/10/17 23:53 Blood Peripheral Anaerobic Blood Culture - Preliminary NO GROWTH IN 2 DAYS Resulted Radiology Last Impressions Lumbar Spine MRI 03/13/17 0000 Signed Impressions: Service Date/Time: Monday, March 13, 2017 09:16 - CONCLUSION: Degenerative and post surgical abnormalities of the lumbar spine as noted on MRI without contrast 03 March 2017. No evidence of enhancement to indicate area of infection with no evidence of mass, abscess, or fluid collection. Gorge De Jesus MD Tumor Localization 03/12/17 0000 Signed Impressions: Service Date/Time: Sunday, March 12, 2017 15:27 - CONCLUSION: No focal uptake to suggest osteomyelitis. Jason Echeverria MD Foot MRI 1/28/18 0000 Signed Impressions: Service Date/Time: Saturday, March 11, 2017 08:30 - CONCLUSION: No evidence of osteomyelitis. Superficial soft tissue edema is noted overlying the level of the second through fourth metatarsals. This may reflect cellulitis. Candace Kaur MD Chest X-Ray 03/06/17 1607 Signed Impressions: Service Date/Time: Monday, March 06, 2017 16:20 - CONCLUSION: Hypoinflation with no acute cardiopulmonary process. Natalio Gomez MD Abdomen/Pelvis CT 03/06/17 0000 Signed Impressions: Service Date/Time: Monday, March 06, 2017 19:52 - CONCLUSION: 1. Numerous bilateral renal cysts and nonobstructing calculi. 2. 3.6 cm infrarenal abdominal aortic aneurysm. 3. Severe scoliosis and spinal stenosis. 4. Inferior vena cava filter present. Dense coronary calcifications. Abhishek Fontaine MD Assessment/Plan Problem List: (1) Peripheral neuropathy (2) Hammertoes of both feet Status: Chronic Additional Plans & Procedures PLAN: Because there is no open lesions I doubt that his toe is the source of his septicemia. I suggested bilateral crest pads to the patient. Follow up with his chief ultrasound technologist after discharge Problem Qualifiers (1) Peripheral neuropathy: Qualified Codes: G62.89 - Other specified polyneuropathies Jason Alfred DPM Mar 13, 2017 17:12
[2017-03-13] MEDS: ATORVASTATIN 10 MG TAB PO SCH (20:04)
[2017-03-14] VITALS (10 sets, daily range): BP systolic 104–150; BP diastolic 54–74; PULSE 57–75; RESP 14–20; TEMP 97.4–98.2; O2SAT 94–98
[2017-03-14] MEDS: POTASSIUM PHOSPHATE/SODIUM PHOSPHATE 250 MG TAB PO SCH ×3 (06:12→21:05)
[2017-03-14] MEDS: METHOCARBAMOL 500 MG TAB PO SCH ×3 (06:12→21:06)
[2017-03-14] MEDS: oxyCODONE/ACETAMINOPHEN 5 MG/325 MG TAB PO PRN ×3 (06:12→19:03)
[2017-03-14] MEDS: SODIUM CHLORIDE 0.9% FLUSH 10 ML FLUSH IV FLUSH SCH ×2 (08:38→20:58)
[2017-03-14] MEDS: AMOXICILLIN (TRIHYDRATE) 500 MG CAP PO SCH ×3 (08:40→17:46)
[2017-03-14] MEDS: POTASSIUM CHLORIDE 10 MEQ CONTROLLED RELEASE TAB PO SCH (08:41)
[2017-03-14] MEDS: BISOPROLOL FUMARATE 5 MG TAB PO SCH (08:41)
[2017-03-14] MEDS: predniSONE 1 MG TAB PO SCH ×2 (08:41→21:05)
[2017-03-14] MEDS: APIXABAN 2.5 MG TABLET PO SCH ×2 (08:41→21:06)
[2017-03-14] MEDS: FUROSEMIDE 20 MG TAB PO SCH (08:41)
[2017-03-14] MEDS: GABAPENTIN 100 MG CAP PO SCH ×3 (08:41→17:46)
--- NOTE | 2017-03-14 09:55 | HHI.PR ---
Subjective Remarks The patient was resting in bed comfortably. He said his pain medications were working for his pain control. He said he has been having bowel movements. He wanted to walk outside in the hallways. He would likely the hospital soon. Discussed with nursing at the bedside. Objective Vitals Vital Signs Date Time Temp Pulse Resp B/P (MAP) Pulse Ox O2 Delivery O2 Flow Rate FiO2 03/14/17 08:03 97.7 66 18 121/71 (88) 98 03/14/17 08:00 75 03/14/17 04:00 57 03/14/17 04:00 97.4 68 18 150/74 (99) 94 03/14/17 00:00 68 03/14/17 00:00 97.8 71 20 127/63 (84) 96 03/13/17 20:00 96 Room Air 03/13/17 20:00 97.9 75 20 120/64 (82) 96 03/13/17 19:48 71 03/13/17 16:03 98.1 64 20 120/74 (89) 98 03/13/17 15:45 70 03/13/17 12:03 98.0 62 20 124/75 (91) 97 I/O 03/13/17 03/13/17 03/13/17 03/14/17 03/14/17 03/14/17 07:00 15:00 23:00 07:00 15:00 23:00 Intake Total 480 ml 930 ml 480 ml Output Total 3 ml 900 ml Balance 477 ml 930 ml -420 ml Intake Oral 480 ml 380 ml 480 ml IV Total 550 ml Output Urine Total 3 ml 900 ml # Voids 5 # Bowel Movements 0 0 1 Result Diagram: 03/13/17 0530 03/13/17 0530 Imaging Last Impressions Lumbar Spine MRI 03/13/17 0000 Signed Impressions: Service Date/Time: Monday, March 13, 2017 09:16 - CONCLUSION: Degenerative and post surgical abnormalities of the lumbar spine as noted on MRI without contrast 03 March 2017. No evidence of enhancement to indicate area of infection with no evidence of mass, abscess, or fluid collection. Gorge De Jesus MD Tumor Localization 03/12/17 0000 Signed Impressions: Service Date/Time: Sunday, March 12, 2017 15:27 - CONCLUSION: No focal uptake to suggest osteomyelitis. Jason Echeverria MD Foot MRI 03/11/17 0000 Signed Impressions: Service Date/Time: Saturday, March 11, 2017 08:30 - CONCLUSION: No evidence of osteomyelitis. Superficial soft tissue edema is noted overlying the level of the second through fourth metatarsals. This may reflect cellulitis. Candace Kaur MD Chest X-Ray 03/06/17 1607 Signed Impressions: Service Date/Time: Monday, March 06, 2017 16:20 - CONCLUSION: Hypoinflation with no acute cardiopulmonary process. Natalio Gomez MD Abdomen/Pelvis CT 03/06/17 0000 Signed Impressions: Service Date/Time: Monday, March 06, 2017 19:52 - CONCLUSION: 1. Numerous bilateral renal cysts and nonobstructing calculi. 2. 3.6 cm infrarenal abdominal aortic aneurysm. 3. Severe scoliosis and spinal stenosis. 4. Inferior vena cava filter present. Dense coronary calcifications. Abhishek Fontaine MD Objective Remarks GENERAL: No apparent distress. SKIN: No rashes, ecchymoses or lesions. Cool and dry. HEAD: Atraumatic. Normocephalic. No temporal or scalp tenderness. EYES: Pupils equal round and reactive. Extraocular motions intact. No scleral icterus. No injection or drainage. ENT: Nose without bleeding, purulent drainage or septal hematoma. Throat without erythema, tonsillar hypertrophy or exudate. Uvula midline. Airway patent. NECK: Trachea midline. No JVD or lymphadenopathy. Supple, nontender, no meningeal signs. CARDIOVASCULAR: Regular rate and rhythm without murmurs, gallops, or rubs. RESPIRATORY: Clear to auscultation. Breath sounds equal bilaterally. No wheezes , rales, or rhonchi. GASTROINTESTINAL: Abdomen soft, non-tender, nondistended. No hepato-splenomegaly , or palpable masses. No guarding. MUSCULOSKELETAL: Extremities without clubbing, cyanosis, or edema. No joint tenderness, effusion, or edema noted. NEUROLOGICAL: Awake and alert. Cranial nerves II through XII intact. Motor and sensory grossly within normal limits. Normal speech. PSYCH: Mood and affect appropriate. Procedures none Medications and IVs Current Medications Medications (Trade) Dose Ordered Sig/Humble Route Start Time Stop Time Status Last Admin (NS Flush) 2 ml UNSCH PRN IV FLUSH 03/06/17 21:45 03/11/17 19:41 (NS Flush) 2 ml BID IV FLUSH 03/07/17 09:00 03/14/17 08:38 (Tylenol) 650 mg Q4H PRN PO 03/06/17 21:45 (Zofran Inj) 4 mg Q6H PRN IVP 03/06/17 21:45 03/13/17 06:32 (Narcan Inj) 0.4 mg UNSCH PRN IV PUSH 03/06/17 21:45 (Duoneb Neb) 1 ampule Q4HR NEB PRN NEB 03/06/17 21:45 (Eliquis) 2.5 mg BID PO 03/07/17 09:00 03/14/17 08:41 (Lipitor) 5 mg HS PO 03/07/17 21:00 03/13/17 20:04 (Lasix) 20 mg DAILY PO 03/07/17 09:00 03/14/17 08:41 (Neurontin) 100 mg TID PO 03/07/17 09:00 03/14/17 08:41 (KCl) 10 meq DAILY PO 03/07/17 09:00 03/14/17 08:41 (Deltasone) 1.25 mg BID PO 03/07/17 09:00 03/14/17 08:41 (Percocet 5-325 Mg) 1 tab Q6H PRN PO 03/07/17 00:00 03/14/17 06:12 (Ambien) 10 mg HS PRN PO 03/07/17 00:00 03/13/17 22:54 Miscellaneous Information 1 Q3D T-DERMAL 03/07/17 00:00 03/13/17 00:00 (Duragesic 75 Mcg Patch.72 Hr) 1 patch Q72H T-DERMAL 03/07/17 00:15 03/13/17 00:23 (K-Phos Neutral) 250 mg Q8HR PO 03/09/17 14:00 03/14/17 06:12 (Zebeta) 1.25 mg DAILY PO 03/10/17 09:00 03/14/17 08:41 (Pill Splitter) 1 ea UNSCH PRN OTHER 03/10/17 09:45 Pharmacy Profile Note 0 ml @ 0 mls/hr UNSCH OTHER 03/10/17 12:00 (Morphine Inj) 2 mg Q3H PRN IV PUSH 03/10/17 12:00 03/14/17 10:24 Vancomycin HCl 1750 mg/Sodium Chloride 517.5 ml @ 257.5 mls/ hr Q24H IV 03/11/17 13:00 03/13/17 13:42 (Trimox) 500 mg TID PO 03/10/17 18:00 03/14/17 08:40 (Robaxin) 500 mg Q8HR PO 03/12/17 18:00 03/14/17 06:12 A/P Problem List: (1) Sepsis ICD Code: A41.9 - Sepsis, unspecified organism (2) UTI (urinary tract infection) ICD Code: N39.0 - Urinary tract infection, site not specified Status: Acute (3) RUBEN (acute kidney injury) ICD Code: N17.9 - Acute kidney failure, unspecified (4) Glomerulonephritis ICD Code: N05.9 - Unspecified nephritic syndrome with unspecified morphologic changes (5) H/O deep venous thrombosis ICD Code: Z86.718 - Personal history of other venous thrombosis and embolism (6) HTN (hypertension) ICD Code: I10 - Essential (primary) hypertension (7) Hyperlipidemia ICD Code: E78.5 - Hyperlipidemia, unspecified (8) Chronic back pain ICD Code: M54.9 - Dorsalgia, unspecified; G89.29 - Other chronic pain (9) Abnormal urine cytology ICD Code: R82.8 - Abnormal findings on cytological and histological examination of urine Assessment and Plan MRSA bacteremia/ Sepsis Pt with leukocytosis, fever and tachycardia. Started on admission on Rocephin then Ampicillin IV, Vancomycin IV. ID consult appreciated. Urine culture grew E faecalis. MRI foot did not show signs of osteomyelitis. MRI of lumbar spine showed spinal canal stenosis but no other signs consistent with osteomyelitis as per report. Repeat MRI of lumbar spine with contrast did not find mass or infection. Tumor localization scan also negative for infection. - continue antibiotics per ID (on vanco and amoxicillin). - echo still pending. History of recurrent DVT Anticoagulated on Eliquis, failed Coumadin. Status post IVC filter placement. - continue Eliquis. Chronic back pain Controlled at this time. - Continue home fentanyl patch and Percocet. - encourage ambulation. Renal cysts/ glomerulonephritis CT of the abdomen/pelvis shows numerous bilateral renal cysts and nonobstructing calculi. S/p IVFs. - Continue home prednisone. - outpt follow up. History of abnormal urine cytology Followed as outpatient with urology who recommended repeat cytology in 3 months. - outpt follow-up. Right third toe Hammertoe Status post MRI showed possible cellulitis but no osteomyelitis. Consulted Podiatry. - follow-up with podiatry as an outpt. DVT prophylaxis with Eliquis Discharge Planning d/c home when cleared by ID. Still awaiting echo Problem Qualifiers (1) UTI (urinary tract infection): Qualified Codes: N39.0 - Urinary tract infection, site not specified; R31.9 - Hematuria, unspecified Andre Mccormick DO Mar 14, 2017 09:55
[2017-03-14] MEDS: MORPHINE SULFATE 2 MG/ML INJ IV PUSH PRN ×2 (10:24→22:37)
--- NOTE | 2017-03-14 12:48 | HHI.IDPN ---
Subjective Subjective Remarks ID [email or web address] for . Patient with multiple episodes of sepsis in past. Couple of times after intra abdominal sepsis when he had colostomy. Also reports seeing a urologist and indeterminate cytology of bladder. H/o cellulitis and rt toe infection in past has seen . Overnight events reviewed. Imaging and chart reviewed. Toe is better Back pain at baseline. No fever No rash No diarrhea Antibiotics amoxicillin vanco IV Lines Line sites with no e.o infection Past Medical History reviewed Allergies: Coded Allergies: Iodinated Contrast- Oral and IV Dye (Verified Allergy, Severe, 03/13/17) ALLERGY DURING HEART CATH YEARS AGO PER PATIENT amitriptyline (Unverified Allergy, Severe, 01/15/17) diatrizoate meglumine (Unverified Allergy, Severe, Hypotension, 01/15/17) iodixanol (Unverified Allergy, Severe, Hypotension, 01/15/17) iohexol (Unverified Allergy, Severe, Hypotension, 01/15/17) pentazocine (Unverified Allergy, Severe, BRADYCARDIA, DECREASE NEURO STATUS, 01/15/17) pregabalin (Unverified Allergy, Severe, 01/15/17) warfarin (Unverified Allergy, Severe, 01/15/17) Objective . Vital Signs Date Time Temp Pulse Resp B/P (MAP) Pulse Ox O2 Delivery O2 Flow Rate FiO2 03/14/17 11:20 98.2 65 18 104/69 (81) 95 03/14/17 08:03 97.7 66 18 121/71 (88) 98 03/14/17 08:00 75 03/14/17 04:00 57 03/14/17 04:00 97.4 68 18 150/74 (99) 94 03/14/17 00:00 68 03/14/17 00:00 97.8 71 20 127/63 (84) 96 03/13/17 20:00 96 Room Air 03/13/17 20:00 97.9 75 20 120/64 (82) 96 03/13/17 19:48 71 03/13/17 16:03 98.1 64 20 120/74 (89) 98 03/13/17 15:45 70 . Laboratory Tests Test 03/13/17 05:30 White Blood Count 7.4 TH/MM3 Red Blood Count 3.74 MIL/MM3 Hemoglobin 11.2 GM/DL Hematocrit 32.4 % Mean Corpuscular Volume 86.6 FL Mean Corpuscular Hemoglobin 29.9 PG Mean Corpuscular Hemoglobin Concent 34.5 % Red Cell Distribution Width 14.8 % Platelet Count 160 TH/MM3 Mean Platelet Volume 8.3 FL Neutrophils (%) (Auto) 53.0 % Lymphocytes (%) (Auto) 34.7 % Monocytes (%) (Auto) 7.6 % Eosinophils (%) (Auto) 4.3 % Basophils (%) (Auto) 0.4 % Neutrophils # (Auto) 3.9 TH/MM3 Lymphocytes # (Auto) 2.6 TH/MM3 Monocytes # (Auto) 0.6 TH/MM3 Eosinophils # (Auto) 0.3 TH/MM3 Basophils # (Auto) 0.0 TH/MM3 CBC Comment DIFF FINAL Differential Comment Laboratory Tests Test 03/13/17 05:30 Blood Urea Nitrogen 14 MG/DL Creatinine 0.93 MG/DL Random Glucose 77 MG/DL Total Protein 5.4 GM/DL Albumin 3.0 GM/DL Calcium Level 8.3 MG/DL Alkaline Phosphatase 39 U/L Aspartate Amino Transf (AST/SGOT) 14 U/L Alanine Aminotransferase (ALT/SGPT) 20 U/L Total Bilirubin 0.6 MG/DL Sodium Level 143 MEQ/L Potassium Level 3.7 MEQ/L Chloride Level 107 MEQ/L Carbon Dioxide Level 29.5 MEQ/L Anion Gap 7 MEQ/L Estimat Glomerular Filtration Rate 79 ML/MIN Imaging Last Impressions Lumbar Spine MRI 03/11/17 0000 Signed Impressions: Service Date/Time: Saturday, March 11, 2017 08:30 - CONCLUSION: Scoliosis and grade 1 retrolisthesis of L4 on L5 and grade 2 anterolisthesis of L5 on S1. Multilevel degenerative changes resulting in both spinal canal stenosis as well as predominantly right-sided neuroforaminal stenosis. No evidence of insufficiency fracture. Candace Kaur MD Foot MRI 03/11/17 0000 Signed Impressions: Service Date/Time: Saturday, March 11, 2017 08:30 - CONCLUSION: No evidence of osteomyelitis. Superficial soft tissue edema is noted overlying the level of the second through fourth metatarsals. This may reflect cellulitis. Candace Kaur MD Chest X-Ray 03/06/17 1607 Signed Impressions: Service Date/Time: Monday, March 06, 2017 16:20 - CONCLUSION: Hypoinflation with no acute cardiopulmonary process. Natalio Gomez MD Abdomen/Pelvis CT 03/06/17 0000 Signed Impressions: Service Date/Time: Monday, March 06, 2017 19:52 - CONCLUSION: 1. Numerous bilateral renal cysts and nonobstructing calculi. 2. 3.6 cm infrarenal abdominal aortic aneurysm. 3. Severe scoliosis and spinal stenosis. 4. Inferior vena cava filter present. Dense coronary calcifications. Abhishek Fontaine MD Physical Exam CONSTITUTIONAL/GENERAL: This is an obese elderly patient, in no apparent distress. TUBES/LINES/DRAINS: SKIN: No jaundice, rashes, or lesions. Skin temperature appropriate. Not diaphoretic. EYES: Pupils equal and round and reactive. Extraocular motions intact. No scleral icterus. No injection or drainage. Fundi not examined. ENT: Hearing grossly normal. Nose without bleeding or purulent drainage. Throat without visible erythema, exudates, masses, or lesions. CARDIOVASCULAR: Regular rate and rhythm without murmurs, gallops, or rubs. No JVD. Peripheral pulses symmetric. RESPIRATORY/CHEST: Symmetric, unlabored respirations. Clear to auscultation. Breath sounds equal bilaterally. No wheezes, rales, or rhonchi. GASTROINTESTINAL: Abdomen soft, non-tender, nondistended. Scar well healed cw his past surgical hx No hepato-splenomegaly, or palpable masses. No guarding. Bowel sounds present. MUSCULOSKELETAL: Extremities without clubbing, cyanosis, or edema. No joint tenderness or effusion noted. No calf tenderness. No mottling or clubbing. R 3 rd toe with sausage shape appearance, swollen, callus on the tip, but no open wounds erythema resolved No open wounds or drainage NEUROLOGICAL: Awake and alert. Motor and sensory grossly within normal limits. Follows commands. Clear speech rp. Moves all extremities. PSYCHIATRIC: No obvious anxiety/depression. no apparent hallucinations or other psychotic thought process. Assessment & Plan Remarks UTI, h/o recurrent UTIS - Ent fecalis S ampicillin MRSA bacteremia ? source Suspected R 3rd toe m oste Gadolinium allergy was listed but not confirmed Pt reports only problem with contrast received during cardiac cath - cont amoxicillin - cont vancomycin IV for now. - fu 2 D echo: not yet done. Notified hospitalist and drapery head former need ECHO report on file to make discharge recs. Results of imaging reviewed with patient and . dw Dr Mccormick d/w podiatry: no osteomyelitis ok to dc on oral as possible cellulitis. Christelle Bingham MD Mar 14, 2017 12:48
[2017-03-14] MEDS: VANCOMYCIN INJ 1,750 MG in SODIUM CHLORID 0.9% 500 ML INJ 500 ML IV SCH (13:21)
--- NOTE | 2017-03-14 14:29 | ECHRPT ---
Indication: VEGETATIONS CONCLUSIONS Normal left ventricular size and wall thickness. The left ventricular systolic function is normal wi th an estimated ejection fraction in the range of 60-65%. Normal wall motion. There is trace tricuspid valve regurgitation. The estimated pulmonary arterial pressure is 33 mmHg. No definite evidence for valvular vegetation. BP: 165 / 92 HR: 87 Rhythm: Sinus MEASUREMENTS (Male / Female) Normal Values Technical Quality:Fair 2D ECHO LV Diastolic Diameter PLAX 5.5 cm 4.2 - 5.9 / 3.9 - 5.3 cm LV Systolic Diameter PLAX 3.7 cm IVS Diastolic Thickness 1.5 cm 0.6 - 1.0 / 0.6 - 0.9 cm LVPW Diastolic Thickness 1.5 cm 0.6 - 1.0 / 0.6 - 0.9 cm LV Relative Wall Thickness 0.6 RV Internal Dim ED PLAX 3.0 cm LVOT Diameter 2.5 cm Aortic Root Diameter 3.4 cm LA Systolic Diameter LX 3.1 cm 3.0 - 4.0 / 2.7 - 3.8 cm M-MODE AV Cusp Separation MM 2.1 cm DOPPLER AV Peak Velocity 139.0 cm/s AV Peak Gradient 7.7 mmHg AV Mean Gradient 4.0 mmHg AV Velocity Time Integral 28.1 cm LVOT Peak Velocity 97.8 cm/s LVOT Peak Gradient 3.8 mmHg LVOT Velocity Time Integral 20.6 cm LVOT Cardiac Index 3878.1 cm/minm AV Area Cont Eq vti 3.6 cm AV Area Cont Eq pk 3.5 cm Mitral E Point Velocity 63.2 cm/s Mitral A Point Velocity 74.0 cm/s Mitral E to A Ratio 0.9 LV E' Lateral Velocity 10.0 cm/s Mitral E to LV E' Lateral Ratio 6.3 LV E' Septal Velocity 4.2 cm/s Mitral E to LV E' Septal Ratio 15.1 TR Peak Velocity 240.0 cm/s TR Peak Gradient 23.0 mmHg Right Atrial Pressure 10.0 mmHg Pulmonary Artery Systolic Pressu 33.0 mmHg Right Ventricular Systolic Press 33.0 mmHg PV Peak Velocity 60.2 cm/s PV Peak Gradient 1.4 mmHg FINDINGS LEFT VENTRICLE Normal left ventricular size and wall thickness. The left ventricular systolic function is normal wi th an estimated ejection fraction in the range of 60-65%. Normal wall motion. RIGHT VENTRICLE The right ventricular size is normal. LEFT ATRIUM The left atrial size is normal. RIGHT ATRIUM The right atrial size is normal. ATRIAL SEPTUM The interatrial septum not well visualized. AORTA The aortic root and proximal ascending aorta are normal in size on limited imaging. MITRAL VALVE No mitral valve regurgitation. AORTIC VALVE Trileaflet aortic valve. No aortic valve stenosis or regurgitation. TRICUSPID VALVE There is trace tricuspid valve regurgitation. The estimated pulmonary arterial pressure is 33 mmHg. PULMONARY VALVE No pulmonary valve regurgitation or stenosis. VESSELS The inferior vena cava was not well visualized. PERICARDIUM No pericardial effusion. Ishmael Schumacher MD (Electronically Signed) Final Date:14 March 2017 14:28
[2017-03-14] MEDS ORDERED: ZYVO600T PO (17:53)
--- NOTE | 2017-03-14 17:56 | HHI.PR ---
Addendum to Inpatient Note Addendum Reason: Additional Documentation Additional Information ECHO negative for vegetations. Discharge on oral zyvox to complete a 14 day course. Bacteremia appears transient due to cellulitis of toe. d/w patient to get repeat blood cultures with PCP office to ensure clearance of bacteremia. d.w cleared from ID standpoint. Will sign off please call back if any change in clinical condition or questions. Christelle Bingham MD Mar 14, 2017 17:56
[2017-03-14] MEDS: LINEZOLID 600 MG TAB PO SCH (21:06)
[2017-03-14] MEDS: ATORVASTATIN 10 MG TAB PO SCH (21:06)
[2017-03-14] MEDS: RESP: ALBUTEROL 2.5 MG/IPRATROPIUM 0.5 MG NEB (PRN) NEB (22:49)
[2017-03-15 00:20] VITALS: BP 129/61; PULSE 68; RESP 17; TEMP 97.6; O2SAT 96
[2017-03-15] MEDS: ZOLPIDEM TARTRATE 10 MG TAB PO PRN (01:21)
[2017-03-15 04:45] VITALS: BP 142/80; PULSE 68; RESP 17; TEMP 97.3; O2SAT 98
[2017-03-15] MEDS: POTASSIUM PHOSPHATE/SODIUM PHOSPHATE 250 MG TAB PO SCH (06:31)
[2017-03-15] MEDS: oxyCODONE/ACETAMINOPHEN 5 MG/325 MG TAB PO PRN ×2 (06:32→12:14)
[2017-03-15] MEDS: METHOCARBAMOL 500 MG TAB PO SCH (06:32)
[2017-03-15 07:53] LABS: BICARBONATE 30.3 MEQ/L (21.0-32.0); CALCIUM 8.5 MG/DL (8.5-10.1); CREATININE 0.95 MG/DL (0.60-1.30); MAGNESIUM 2.2 MG/DL (1.5-2.5)
[2017-03-15 08:00] VITALS: BP 123/85; PULSE 61; PULSE 68; RESP 16; TEMP 98; O2SAT 95
[2017-03-15] MEDS: GABAPENTIN 100 MG CAP PO SCH (08:36)
[2017-03-15] MEDS: POTASSIUM CHLORIDE 10 MEQ CONTROLLED RELEASE TAB PO SCH (08:36)
[2017-03-15] MEDS: AMOXICILLIN (TRIHYDRATE) 500 MG CAP PO SCH (08:36)
[2017-03-15] MEDS: FUROSEMIDE 20 MG TAB PO SCH (08:37)
[2017-03-15] MEDS: BISOPROLOL FUMARATE 5 MG TAB PO SCH (08:37)
[2017-03-15] MEDS: predniSONE 1 MG TAB PO SCH (08:39)
[2017-03-15] MEDS: LINEZOLID 600 MG TAB PO SCH (08:39)
[2017-03-15] MEDS: APIXABAN 2.5 MG TABLET PO SCH (08:40)
[2017-03-15] MEDS: SODIUM CHLORIDE 0.9% FLUSH 10 ML FLUSH IV FLUSH SCH (08:41)
[2017-03-15] MEDS: RESP: ALBUTEROL 2.5 MG/IPRATROPIUM 0.5 MG NEB (PRN) NEB (09:19)
--- NOTE | 2017-03-15 09:24 | HHI.DCPOC ---
Discharge Care Plan Diagnosis: (1) H/O deep venous thrombosis (2) Chronic back pain (3) Sepsis (4) UTI (urinary tract infection) (5) Hammertoes of both feet Goals to Promote Your Health * To prevent worsening of your condition and complications * To maintain your health at the optimal level Directions to Meet Your Goals Take your medications as prescribed Follow your dietary instruction Follow activity as directed Keep your appointments as scheduled Take your immunizations and boosters as scheduled If your symptoms worsen call your PCP, if no PCP go to Urgent Care Center or Emergency Room Smoking is Dangerous to Your Health. Avoid second hand smoke Call the 24-hour hour crisis hotline for domestic abuse at Andre Mccormick DO Mar 15, 2017 09:24
--- NOTE | 2017-03-15 09:26 | HHI.FF ---
Face to Face Verification Diagnosis: (1) Hammertoes of both feet (2) H/O deep venous thrombosis (3) Chronic back pain (4) Sepsis (5) UTI (urinary tract infection) Physical Therapy Order: Evaluate and Treat, Improve ambulation, Strength and gait training Home Health Nursing Order: Medical education Signs/symptoms of disease process Medication education-adverse effect Nursing assessment with vital signs I have seen patient Satya Lagos on 03/15/17. My clinical findings support the need for the requested home health care services because: Ltd mobility - disease progression Deconditioned w/ increased weakness Limited ability to care for self I certify that my clinical findings support that this patient is homebound because: Unsteady gait/balance Unsafe to leave home unassisted Andre Mccormick DO Mar 15, 2017 09:26
--- NOTE | 2017-03-15 09:29 | HHI.DS ---
Discharge Summary Admission Date Mar 06, 2017 at 20:56 Discharge Date: Mar 15, 2017 Admitting Diagnosis SIRS, UTI, dehydration (1) Sepsis ICD Code: A41.9 - Sepsis, unspecified organism Diagnosis: Principal (2) UTI (urinary tract infection) ICD Code: N39.0 - Urinary tract infection, site not specified Status: Acute (3) RUBEN (acute kidney injury) ICD Code: N17.9 - Acute kidney failure, unspecified (4) Glomerulonephritis ICD Code: N05.9 - Unspecified nephritic syndrome with unspecified morphologic changes (5) H/O deep venous thrombosis ICD Code: Z86.718 - Personal history of other venous thrombosis and embolism (6) HTN (hypertension) ICD Code: I10 - Essential (primary) hypertension (7) Hyperlipidemia ICD Code: E78.5 - Hyperlipidemia, unspecified (8) Chronic back pain ICD Code: M54.9 - Dorsalgia, unspecified; G89.29 - Other chronic pain (9) Abnormal urine cytology ICD Code: R82.8 - Abnormal findings on cytological and histological examination of urine (10) Bacteremia ICD Code: R78.81 - Bacteremia Procedures none Brief History - From Admission 77-year-old male with a past medical history significant for 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 Patient is confused during our discussion, oriented to self and place but not year. He is unable to tell me his past medical history with the exception of previously having sepsis. He continues to endorse shaking chills and states he has lower abdominal/pelvic pain. UA consistent with urinary tract infection. Vital signs : Temperature 100.2, pulse 106, respirations 20, BP 126/56, pulse ox 96% on room air. CBC/BMP: 03/13/17 0530 03/15/17 0531 Significant Findings Laboratory Tests Test 03/13/17 05:30 03/13/17 13:40 03/15/17 05:31 Red Blood Count 3.74 MIL/MM3 (4.50-5.90) Hemoglobin 11.2 GM/DL (13.0-17.0) Hematocrit 32.4 % (39.0-51.0) Eosinophils (%) (Auto) 4.3 % (0.0-4.0) Total Protein 5.4 GM/DL (6.4-8.2) Albumin 3.0 GM/DL (3.4-5.0) Calcium Level 8.3 MG/DL (8.5-10.1) Alkaline Phosphatase 39 U/L (45-117) Aspartate Amino Transf (AST/SGOT) 14 U/L (15-37) Estimat Glomerular Filtration Rate 79 ML/MIN (>89) 77 ML/MIN (>89) Vancomycin Level Trough 16.3 MCG/ML (5.0-10.0) Random Glucose 119 MG/DL (74-106) Chloride Level 108 MEQ/L (98-107) Imaging Last Impressions Lumbar Spine MRI 03/13/17 0000 Signed Impressions: Service Date/Time: Monday, March 13, 2017 09:16 - CONCLUSION: Degenerative and post surgical abnormalities of the lumbar spine as noted on MRI without contrast 03 March 2017. No evidence of enhancement to indicate area of infection with no evidence of mass, abscess, or fluid collection. Gorge De Jesus MD Tumor Localization 03/12/17 0000 Signed Impressions: Service Date/Time: Sunday, March 12, 2017 15:27 - CONCLUSION: No focal uptake to suggest osteomyelitis. Jason Echeverria MD Foot MRI 03/11/17 0000 Signed Impressions: Service Date/Time: Saturday, March 11, 2017 08:30 - CONCLUSION: No evidence of osteomyelitis. Superficial soft tissue edema is noted overlying the level of the second through fourth metatarsals. This may reflect cellulitis. Candace Kaur MD Chest X-Ray 03/06/17 1607 Signed Impressions: Service Date/Time: Monday, March 06, 2017 16:20 - CONCLUSION: Hypoinflation with no acute cardiopulmonary process. Natalio Gomez MD Abdomen/Pelvis CT 03/06/17 0000 Signed Impressions: Service Date/Time: Monday, March 06, 2017 19:52 - CONCLUSION: 1. Numerous bilateral renal cysts and nonobstructing calculi. 2. 3.6 cm infrarenal abdominal aortic aneurysm. 3. Severe scoliosis and spinal stenosis. 4. Inferior vena cava filter present. Dense coronary calcifications. Abhishek Fontaine MD PE at Discharge GENERAL: No apparent distress. SKIN: No rashes, ecchymoses or lesions. Cool and dry. HEAD: Atraumatic. Normocephalic. No temporal or scalp tenderness. EYES: Pupils equal round and reactive. Extraocular motions intact. No scleral icterus. No injection or drainage. ENT: Nose without bleeding, purulent drainage or septal hematoma. Throat without erythema, tonsillar hypertrophy or exudate. Uvula midline. Airway patent. NECK: Trachea midline. No JVD or lymphadenopathy. Supple, nontender, no meningeal signs. CARDIOVASCULAR: Regular rate and rhythm without murmurs, gallops, or rubs. RESPIRATORY: Clear to auscultation. Breath sounds equal bilaterally. No wheezes , rales, or rhonchi. GASTROINTESTINAL: Abdomen soft, non-tender, nondistended. No hepato-splenomegaly , or palpable masses. No guarding. MUSCULOSKELETAL: Extremities without clubbing, cyanosis, or edema. No joint tenderness, effusion, or edema noted. NEUROLOGICAL: Awake and alert. Cranial nerves II through XII intact. Motor and sensory grossly within normal limits. Normal speech. PSYCH: Mood and affect appropriate. Pt update on day of discharge The patient was anxious to go home. He was very grateful of the care he received. Discussed with his family over the phone. The patient requested an inhaler. Discussed with case management. Hospital Course MRSA bacteremia/ Sepsis Pt with leukocytosis, fever and tachycardia. On admission the pt was started on Rocephin, ampicillin IV and vancomycin IV. ID was consulted. Urine culture grew E faecalis which he was treated for. MRI foot did not show signs of osteomyelitis, but possible cellulitis. Podiatry evaluated the pt and did not believe there was evidence of infection. MRI of lumbar spine showed spinal canal stenosis but no other signs consistent with osteomyelitis as per report. Repeat MRI of lumbar spine with contrast did not find mass or infection. Tumor localization scan also negative for infection. One blood culture grew MRSA. Echo was negative for vegetation. The pt will complete a course of Zyvox per ID. He will repeat blood cultures once done with antibiotics. History of recurrent DVT Anticoagulated on Eliquis, failed Coumadin. Status post IVC filter placement. He will continue Eliquis. Chronic back pain Controlled at this time. He will continue his home medication regimen. He will be discharged with home health care. Renal cysts/ glomerulonephritis CT of the abdomen/pelvis shows numerous bilateral renal cysts and nonobstructing calculi. He has a history of abnormal urine cytology. He was continued on his home prednisone. He will have outpt follow up with urology. Pt Condition on Discharge: Stable Discharge Disposition: Disch w/ Home Health Serv Discharge Time: > 30 minutes Discharge Instructions DIET: Follow Instructions for: As Tolerated, No Restrictions Activities you can perform: Weight Bearing as Jesús Follow up Referrals: Appointment for Follow Up Appointment for Follow Up PCP Follow-up - 1 Week PCP Follow-up Podiatry - 1 Week SN[facility]/ with [facility] Urology New Orders: BLOOD CULTURE - 1 Week New Medications: Linezolid (Zyvox) 600 Mg Tab 600 MG PO Q12H for Infection for 8 Days, #16 TAB 0 Refills Continued Medications: Albuterol 18 GM Inh (Ventolin Hfa 18 GM Inh) 90 Mcg/Act Aer 2 PUFF INH DAILY PRN for SHORTNESS OF BREATH, #3 INHALER 0 Refills (This prescription has been renewed) Alprazolam (Alprazolam) 0.5 Mg Tab 0.5 MG PO DIRECTED PRN for ANXIETY, TAB 0 Refills Apixaban (Eliquis) 2.5 Mg Tab 2.5 MG PO BID for Blood Clot Prevention, TAB 0 Refills Atorvastatin (Atorvastatin) 10 Mg Tab 5 MG PO HS for Cholesterol Management, #30 TAB 0 Refills Bisoprolol-Hydrochlorothiazide (Ziac) 2.5-6.25 Mg Tab 0.05 TAB PO DAILY for Blood Pressure Management, #30 TAB 0 Refills Calcitriol (Calcitriol) 0.25 Mcg Cap 0.25 MCG PO DIRECTED for Calcium Supplement, #30 CAP 0 Refills sunday, sunday, sunday and sunday Calcium Carbonate-Cholecalciferol (Calcium 600 with Vitamin D) 600-400 mg-Unit Tab 1 TAB PO BID for Calcium Supplement, TAB 0 Refills Ergocalciferol (Vitamin D2) 2,000 Unit Tab 71608 UNITS PO every 2 weeks for Nutritional Supplement, TAB 0 Refills Fentanyl Patch 72 HR (Fentanyl Patch 72 HR) 75 Mcg/Hr Patch 75 MCG T-DERMAL Q72H for Pain Management, #10 PATCH 0 Refills Remove old patch when new one placed. Furosemide (Furosemide) 20 Mg Tab 20 MG PO DAILY, #30 TAB 0 Refills Gabapentin (Gabapentin) 100 Mg Cap 100 MG PO TID, #90 CAP 0 Refills Hydrocodone-Acetaminophen (Hydrocodone-Acetaminophen) 5-300 Mg Tab 1 TAB PO Q6H PRN for PAIN, TAB 0 Refills Hydroxychloroquine (Plaquenil) 200 Mg Tab 200 MG PO BID, #60 TAB 0 Refills Take with food Multiple Vitamin (Multiple Vitamin) 1 Tab 1 TAB PO DAILY for Nutritional Supplement, TAB 0 Refills Oxycodone-Acetaminophen (Oxycodone-Acetaminophen) 5-325 mg Tab 1 TAB PO Q6H PRN for PAIN, TAB 0 Refills Potassium Chloride ER (Potassium Chloride ER) 10 Meq Tab 10 MEQ PO DAILY for Electrolyte Replacement, #30 TAB 0 Refills Prednisone (Prednisone) 2.5 Mg Tab 1.25 MG PO BID, TAB 0 Refills Zolpidem (Ambien) 10 Mg Tab 10 MG PO HS PRN for INSOMNIA, TAB 0 Refills Andre Mccormick DO Mar 15, 2017 09:29
[2017-03-15] MEDS ORDERED: VENTAER INH (09:32)
[2017-03-15 12:00] VITALS: BP 126/73; PULSE 69; RESP 18; TEMP 97.4; O2SAT 98
== END 2017-03-15 13:32 | disposition home health service (06) | DRG 872 ==
LOC: NEPC 15:55 → NEDA 20:56 → NEPFCDU 22:34 → N04A 03-12 13:12
PROVIDERS: ADMIT Hospitalist; ATTEND Hospitalist
DX: A41.9 Sepsis, unspecified organism (principal); N17.9 Acute kidney failure, unspecified; N39.0 Urinary tract infection, site not specified; B95.2 Enterococcus as the cause of diseases classified elsewhere; N05.9 Unspecified nephritic syndrome with unspecified morphologic changes; G62.9 Polyneuropathy, unspecified; E83.39 Other disorders of phosphorus metabolism; E86.0 Dehydration; M41.9 Scoliosis, unspecified; R00.0 Tachycardia, unspecified; Z86.718 Personal history of other venous thrombosis and embolism; Z79.02 Long term (current) use of antithrombotics/antiplatelets; I10 Essential (primary) hypertension; E78.5 Hyperlipidemia, unspecified; G89.29 Other chronic pain; M54.9 Dorsalgia, unspecified; E87.6 Hypokalemia; I25.10 Atherosclerotic heart disease of native coronary artery without angina pectoris; Z79.52 Long term (current) use of systemic steroids; M20.42 Other hammer toe(s) (acquired), left foot; M20.41 Other hammer toe(s) (acquired), right foot; I71.4 Abdominal aortic aneurysm, without rupture; Z91.041 Radiographic dye allergy status; E66.9 Obesity, unspecified; Z68.30 Body mass index [BMI] 30.0-30.9, adult; Z87.440 Personal history of urinary (tract) infections; D64.9 Anemia, unspecified; B95.62 Methicillin resistant Staphylococcus aureus infection as the cause of diseases classified elsewhere; M48.061 Spinal stenosis, lumbar region without neurogenic claudication; Z98.1 Arthrodesis status
CPT/HCPCS: 71046; 72148; 72158; 73718; 74176; 78807; 78999; 80048; 80053; 80202; 81001; 83605; 83735; 84100; 85025; 85027; 85610; 85730; 86403; 87040; 87077; 87086; 87147; 87186; 87205; 87804; 93308; 94640; 94664; 96365; 96375; A9569; A9579; J0290; J0696; J2060; J2270; J2405; J3370; J7030; J7040; J7512

== ENCOUNTER → 2017-03-27 | Outpatient (CLI) | payer MEDICARE, OTHER ==
[~2017-03-27] MED LIST changes: +PLAQ200T PO; -VITA400T14 PO; +ZYVO600T PO
== END ==
LOC: PLAB 10:14
PROVIDERS: ATTEND Hospitalist
DX: R78.81 Bacteremia (principal)
CPT/HCPCS: 36415; 87040

== ENCOUNTER → 2017-04-03 | Outpatient (CLI) | payer MEDICARE, OTHER ==
[2017-04-03 13:40] LABS: BACTERIA, URINE OCC /hpf; BILIRUBIN, URINE NEG (NEG); BLOOD, URINE MOD (NEG); GLUCOSE,URINE NEG (NEG); KETONE, URINE NEG (NEG); MUCUS URINE FEW /lpf (OCC); NITRITE,URINE NEG (NEG); URINE COLOR YELLOW (YELLW/STRAW); URINE LEUKOCYTE ESTERASE LARGE (NEG)
== END ==
LOC: PLAB 11:32
PROVIDERS: ATTEND Family Medicine
DX: R82.99 Other abnormal findings in urine (principal)
CPT/HCPCS: 81001; 87086

== ENCOUNTER → 2017-04-09 | Outpatient (CLI) | payer MEDICARE, OTHER | LOC: PLAB 14:40 | PROVIDERS: ATTEND Urology | DX: N28.1 Cyst of kidney, acquired (principal) | CPT/HCPCS: 88112 ==

== ENCOUNTER → 2017-04-27 | Outpatient (CLI) | payer MEDICARE, OTHER ==
[2017-04-27 13:27] LABS: AUTOMATED NEUTROPHIL # 3.8 TH/MM3 (1.8-7.7); BASOPHIL % 0.3 % (0.0-2.0); EOSINOPHIL # 0.1 TH/MM3 (0-0.4); HEMATOCRIT 39.3 % (39.0-51.0); HEMOGLOBIN 13.4 GM/DL (13.0-17.0); LYMPH % 27.8 % (9.0-44.0); LYMPHOCYTE # 1.7 TH/MM3 (1.0-4.8); MEAN CELL VOLUME 86.1 FL (80.0-100.0); MEAN CORPUSCULAR HEMOGLOBIN 29.4 PG (27.0-34.0); MEAN CORPUSCULAR HGB CONC 34.2 % (32.0-36.0); MEAN PLATELET VOLUME 9.2 FL (7.0-11.0); MONO % 6.8 % (0.0-8.0); MONOCYTE # 0.4 TH/MM3 (0-0.9); NEUT % 63.1 % (16.0-70.0); PLATELET COUNT 176 TH/MM3 (150-450); RED BLOOD COUNT 4.57 MIL/MM3 (4.50-5.90); RED CELL DISTRIBUTION WIDTH 15.9 % (11.6-17.2); WHITE BLOOD COUNT 6.1 TH/MM3 (4.0-11.0)
[2017-04-27 13:54] LABS: ALBUMIN 4.5 GM/DL (3.4-5.0); CALCIUM 9.8 MG/DL (8.5-10.1); CREATININE 1.27 MG/DL (0.60-1.30)
[2017-04-27 13:55] LABS: PHOSPHORUS 2.9 MG/DL (2.5-4.9)
[2017-04-27 13:57] LABS: BACTERIA, URINE RARE /hpf; BILIRUBIN, URINE NEG (NEG); BLOOD, URINE SMALL (NEG); GLUCOSE,URINE NEG (NEG); HYALINE CAST, URINE 4 /lpf (RARE); KETONE, URINE NEG (NEG); MUCUS URINE FEW /lpf (OCC); NITRITE,URINE NEG (NEG); PH, URINE 5.5 (5.0-8.5); SQUAMOUS EPITHELIAL CELL URINE <1 /hpf (0-5); URINE COLOR YELLOW (YELLW/STRAW); URINE LEUKOCYTE ESTERASE LARGE (NEG); WHITE BLOOD CELL CLUMPS RARE
== END ==
LOC: PLAB 11:06
PROVIDERS: ATTEND Internal Medicine Nephrology
DX: N25.81 Secondary hyperparathyroidism of renal origin (principal); N18.2 Chronic kidney disease, stage 2 (mild); E55.9 Vitamin D deficiency, unspecified; R82.90 Unspecified abnormal findings in urine
CPT/HCPCS: 36415; 80069; 81001; 82306; 82570; 83970; 84156; 85025; 87086

== ENCOUNTER → 2017-05-07 | Outpatient (CLI) | payer MEDICARE, OTHER | LOC: HRAD 16:17 | PROVIDERS: ATTEND Internal Medicine Rheumatology | DX: M12.241 Villonodular synovitis (pigmented), right hand (principal) ==

== ENCOUNTER → 2017-05-14 | Outpatient (CLI) | payer MEDICARE, OTHER | LOC: PLAB 08:55 | PROVIDERS: ATTEND Urology | DX: R78.9 Finding of unspecified substance, not normally found in blood (principal); N40.1 Benign prostatic hyperplasia with lower urinary tract symptoms | CPT/HCPCS: 36415; 84153; 84403 ==

== ENCOUNTER 2017-05-21 15:52 | Inpatient (IN) | payer MEDICARE, OTHER ==
[~2017-05-21] VITALS: Ht 182.9 cm; Wt 93.3 kg
[2017-05-21 16:38] VITALS: BP 151/76; PULSE 61; RESP 18; TEMP 98.4; O2SAT 98
--- NOTE | 2017-05-21 17:32 | RADRPT ---
EXAM DATE/TIME: 05/21/2017 16:58 [place] COMPARISON: No previous studies available for comparison. INDICATIONS : Right foot pain at third digit. No injury. Possible infection. MEDICAL HISTORY : Hypothyroidism. Hypertension Nephritis. MRSA. SURGICAL HISTORY : Tonsillectomy. Appendectomy. Fusion, lumbar. Discectomy, lumbar. IVC filter. ENCOUNTER: Initial ACUITY: 2 days PAIN SCORE: 4/10 LOCATION: Right foot, third digit FINDINGS: Soft tissue swelling is noted involving the right third digit distally. There is also evidence of ero sive changes involving the third distal phalangeal tuft. If there is strong clinical concern for oste omyelitis, an MRI with contrast would be more sensitive in this patient. There is a tiny foreign body within the soft tissues of the heel which may represent a tiny broken needle. CONCLUSION: 1. Soft tissue swelling involving the right third digit distally as well as erosive changes involving the third distal phalangeal tuft. If there is strong clinical concern for osteomyelitis, an MRI with contrast would be more sensitive in this patient. 2. Tiny foreign body within the soft tissues of the heel which may result in a tiny broken needle. Rah David MD on May 21, 2017 at 17:25 Board Certified Radiologist. This report was verified electronically.
[2017-05-21 20:38] VITALS: BP 113/70; PULSE 66; RESP 16; O2SAT 97
--- NOTE | 2017-05-21 20:42 | PD ---
HPI Chief Complaint: Skin Problem Time Seen by Provider: 20:20 Travel History International Travel<30 days: No Contact w/Intl Traveler<30days: No Traveled to known affect area: No History of Present Illness HPI Patient is a 77 year old male who comes in complaining of an infection of his right 3rd toe. He says it has been there for about a week. He went to see the trolley car operator today who sent him here for IV antibiotics and r/o osteomyelitis. He says he has chronic pain to his back, but not much pain in the toe. He says his temperature was 100 at the clinic today, but he had not had fever at home. He does report having chills. His says that his leg was warm last night, but he has not seen extension of the redness or any swelling. Severity is mild to moderate. PFSH Past Medical History Hx Anticoagulant Therapy: Yes (Eliquis) Arthritis: Yes Asthma: Yes Autoimmune Disease: Yes Blood Disorders: No Anxiety: No Depression: No Cancer: No Cardiac Catheterization: Yes Cardiovascular Problems: Yes High Cholesterol: Yes Chest Pain: Yes Congestive Heart Failure: No COPD: No Cerebrovascular Accident: No Coronary Artery Disease: Yes Diabetes: No Diminished Hearing: No Endocrine: No Gastrointestinal Disorders: Yes GERD: Yes Glaucoma: No Genitourinary: Yes Headaches: No Hepatitis: No Hiatal Hernia: No Hypertension: Yes Immune Disorder: No Implanted Vascular Access Dvce: Yes Kidney Stones: Yes Musculoskeletal: Yes Neurologic: No Psychiatric: No Reproductive: No Respiratory: Yes Migraines: No Renal Failure: Yes (CLOSE TO KIDNEY FAILURE SEP 2007) Seizures: No Sleep Apnea: No Thyroid Disease: No Ulcer: No Past Surgical History Abdominal Surgery: Yes (VENTRAL HERNIA, COLON RES., COLOSTOMY, (& REVERSAL)) Appendectomy: Yes Body Medical Devices: METAL SUTURES RIGHT ABDOMEN DUE TO APPY Cardiac Surgery: No Cholecystectomy: No Ear Surgery: No Endocrine Surgery: No Eye Surgery: Yes (BILATERAL CATARACT ) Genitourinary Surgery: Yes (URETERAL STENT, ESWL (MULTI), LITHOTRIPSY) Gynecologic Surgery: No Neurologic Surgery: Yes (LUMBAR FUSION, (X2)) Oral Surgery: Yes (T & A) Pacemaker: No Thoracic Surgery: No Tonsillectomy: Yes Other Surgery: Yes (GREEN FIELD FILTER) Social History Alcohol Use: Yes (1 BEER SOCIALLY) Tobacco Use: No Substance Use: No Allergies-Medications (Allergen,Severity, Reaction): Coded Allergies: Iodinated Contrast- Oral and IV Dye (Verified Allergy, Severe, 03/13/17) ALLERGY DURING HEART CATH YEARS AGO PER PATIENT amitriptyline (Unverified Allergy, Severe, 01/15/17) diatrizoate meglumine (Unverified Allergy, Severe, Hypotension, 01/15/17) iodixanol (Unverified Allergy, Severe, Hypotension, 01/15/17) iohexol (Unverified Allergy, Severe, Hypotension, 01/15/17) pentazocine (Unverified Allergy, Severe, BRADYCARDIA, DECREASE NEURO STATUS, 01/15/17) pregabalin (Unverified Allergy, Severe, 01/15/17) warfarin (Unverified Allergy, Severe, 01/15/17) Reported Meds & Prescriptions Reported Meds & Active Scripts Active Ventolin Hfa 18 GM Inh (Albuterol Sulfate) 90 Mcg/Act Aer 2 Puff INH DAILY PRN Zyvox (Linezolid) 600 Mg Tab 600 Mg PO Q12H 8 Days Reported Plaquenil (Hydroxychloroquine Sulfate) 200 Mg Tab 200 Mg PO BID Take with food Prednisone 2.5 Mg Tab 1.25 Mg PO BID Atorvastatin (Atorvastatin Calcium) 10 Mg Tab 5 Mg PO HS Calcitriol 0.25 Mcg Cap 0.25 Mcg PO DIRECTED sunday, sunday, sunday and sunday Ambien (Zolpidem Tartrate) 10 Mg Tab 10 Mg PO HS PRN Potassium Chloride ER (Potassium Chloride) 10 Meq Tab 10 Meq PO DAILY Oxycodone-Acetaminophen 5-325 mg Tab 1 Tab PO Q6H PRN Multiple Vitamin 1 Tab 1 Tab PO DAILY Gabapentin 100 Mg Cap 100 Mg PO TID Furosemide 20 Mg Tab 20 Mg PO DAILY Eliquis (Apixaban) 2.5 Mg Tab 2.5 Mg PO BID Fentanyl Patch 72 HR (Fentanyl) 75 Mcg/Hr Patch 75 Mcg T-DERMAL Q72H Remove old patch when new one placed. Vitamin D2 (Ergocalciferol) 2,000 Unit Tab 50,000 Units PO EVERY 2 WEEKS Calcium 600 with Vitamin D (Calcium Carbonate-Cholecalciferol) 600-400 mg-Unit Tab 1 Tab PO BID Ziac (Bisoprolol-Hydrochlorothiazide) 2.5-6.25 Mg Tab 0.05 Tab PO DAILY Alprazolam 0.5 Mg Tab 0.5 Mg PO DIRECTED PRN Hydrocodone-Acetaminophen 5-300 Mg Tab 1 Tab PO Q6H PRN Review of Systems Except as stated in HPI: all other systems reviewed are Neg General / Constitutional: Positive: Chills HENT: No: Headaches, Lightheadedness Cardiovascular: No: Chest Pain or Discomfort Respiratory: No: Shortness of Breath Gastrointestinal: No: Nausea, Vomiting Musculoskeletal: Positive: Pain Skin: Positive Lesions Neurologic: No: Weakness, Dizziness Physical Exam Narrative GENERAL: Awake and alert, no acute distress. SKIN: Swelling, erythema to the right third toe. Toe has been surgically cut open. HEAD: Atraumatic. Normocephalic. EYES: Pupils equal and round. No scleral icterus. ENT: Mucous membranes pink and moist. NECK: Trachea midline. No JVD. CARDIOVASCULAR: Regular rate and rhythm. No murmur appreciated. RESPIRATORY: No accessory muscle use. Clear to auscultation. Breath sounds equal bilaterally. GASTROINTESTINAL: Abdomen soft, non-tender, nondistended. MUSCULOSKELETAL: No obvious deformities. No clubbing. No cyanosis. No edema. NEUROLOGICAL: Awake and alert. No obvious cranial nerve deficits. Motor grossly within normal limits. Normal speech. PSYCHIATRIC: Appropriate mood and affect; insight and judgment normal. Data Data Last Documented VS Vital Signs Date Time Temp Pulse Resp B/P (MAP) Pulse Ox O2 Delivery O2 Flow Rate FiO2 05/21/17 16:38 98.4 61 18 151/76 (101) 98 Orders Orders Complete Blood Count With Diff (05/21/17 16:41) Basic Metabolic Panel (Bmp) (05/21/17 16:41) Act Partial Throm Time (Ptt) (05/21/17 16:41) Prothrombin Time / Inr (Pt) (05/21/17 16:41) Westergren Sedimentation Rate (05/21/17 16:41) C-Reactive Protein (Crp) (05/21/17 16:41) Foot, Complete ([id number]) (05/21/17 ) Vancomycin Inj (Vancomycin Inj) (05/21/17 20:45) Piperacil-Tazo 3.375 Gm Premix (Zosyn 3. (05/21/17 20:45) Morphine Inj (Morphine Inj) (05/21/17 20:45) Mri Foot W&W/O Contrast (05/21/17 ) [facility] Medical Decision Making Medical Screen Exam Complete: Yes Emergency Medical Condition: Yes Medical Record Reviewed: Yes Differential Diagnosis Osteomyelitis versus cellulitis versus abscess Narrative Course Patient is a 77-year-old male who is sent in by Dr. Fonseca for possible osteomyelitis of his right third toe. Exam does show swelling and erythema of the toe. IV established, labs sent. X-ray of the foot is concerning for osteo- myelitis of the toe. Given vancomycin and Zosyn. Given morphine. MRI of the foot ordered. Podiatry also suggests arterial Doppler studies of the leg and WALTER. Pamela Nesbitt MD May 21, 2017 20:42
[2017-05-21] MEDS ORDERED: MORPHINE SULFATE 4 MG/ML INJ IV PUSH ONE (20:45)
[2017-05-21] MEDS ORDERED: PIPERACIL-TAZO 3.375 GM PREMIX 50 ML IV ONE (20:45)
[2017-05-21] MEDS ORDERED: VANCOMYCIN INJ 1,250 MG in SODIUM CHLOR 0.9% 250 ML INJ 250 ML IV ONE (20:45)
[2017-05-21 20:53] LABS: AUTOMATED NEUTROPHIL # 4.8 TH/MM3 (1.8-7.7); BASOPHIL % 0.3 % (0.0-2.0); EOSINOPHIL # 0.1 TH/MM3 (0-0.4); EOSINOPHIL % 0.8 % (0.0-4.0); HEMATOCRIT 38.5 % (39.0-51.0); HEMOGLOBIN 13.3 GM/DL (13.0-17.0); LYMPH % 12.5 % (9.0-44.0); LYMPHOCYTE # 0.8 TH/MM3 (1.0-4.8); MEAN CELL VOLUME 86.2 FL (80.0-100.0); MEAN CORPUSCULAR HEMOGLOBIN 29.8 PG (27.0-34.0); MEAN CORPUSCULAR HGB CONC 34.6 % (32.0-36.0); MEAN PLATELET VOLUME 9.3 FL (7.0-11.0); MONO % 10.3 % (0.0-8.0); MONOCYTE # 0.7 TH/MM3 (0-0.9); NEUT % 76.1 % (16.0-70.0); PLATELET COUNT 133 TH/MM3 (150-450); RED BLOOD COUNT 4.46 MIL/MM3 (4.50-5.90); RED CELL DISTRIBUTION WIDTH 15.7 % (11.6-17.2); WHITE BLOOD COUNT 6.4 TH/MM3 (4.0-11.0)
[2017-05-21 21:09] LABS: INTERNATIONAL NORMALIZED RATIO 1.1 RATIO; PROTHROMBIN TIME - PATIENT 10.8 SEC (9.8-11.6)
[2017-05-21 21:22] LABS: BICARBONATE 29.6 MEQ/L (21.0-32.0); C-REACTIVE PROTEIN 3.2 MG/DL (0.00-0.30); CALCIUM 9.5 MG/DL (8.5-10.1); CREATININE 1.5 MG/DL (0.60-1.30)
[2017-05-21] MEDS ORDERED: GADODIAMIDE PF 287 MG/ML 5 ML VIAL (for RAD MRI) IVCONTRAST ONE (23:40)
--- NOTE | 2017-05-21 23:51 | HHI.HP ---
[facility] Unknown Admission Diagnosis osteomyelitis Diagnoses: Chief Complaint: Right third toe ulcer Travel History International Travel<30 Days: No Contact w/Intl Traveler <30 Da: No Traveled to Known Affected Are: No History of Present Illness 77 y/o male with CKD stage 3, kidney stones, chronic uti's, HTN, HLD, DVTs on Eliquis, neuropathy presented to the ED with complaints of a ulcer to right 3rd toe. Patient states he has had this ulcer for many years and it heals over time and then opens again. He was seen today his data analytics analyst who drained it in the office and then sent the patient to the emergency department to rule out osteomyelitis. Patient states when the data analytics analyst drained at the office pus was drained. He denies any fevers at home but does complain of chills. He denies any associated chest pain, shortness of breath or dizziness. He does complain of some light tenderness to the right toe, with no radiation. He does state due to the neuropathy does not feel much pain. is at the bedside and all questions were answered. Dr. Cristina urologist Dr. Claire PCP Dr. Vazquez Sagger Filler Dr. Sanchez Director Of [employer]col[employer]iate Athletics Dr. Evans Hemotologist Review of Systems Except as stated in HPI: all other systems reviewed are Neg Past Family Social History Past Medical History Multiple DVTs status post IVC filter, currently on Eliquis History of abnormal urine cytology, currently being followed by urology Anxiety Arthritis Asthma Colon polyps Diverticulosis Glomerulonephritis Hyper parathyroidism Hypertension Irregular heartbeat Kidney cyst Peripheral neuropathy Past Surgical History Multiple spinal surgeries Right knee surgery 1980s Colostomy then reversed 2008 Hernia repaired Disc surgery 2010 Reported Medications Reported Meds & Active Scripts Active Potassium Chloride ER (Potassium Chloride) 10 Meq Tab 10 Meq PO HS Furosemide 20 Mg Tab 20 Mg PO BID Ventolin Hfa 18 GM Inh (Albuterol Sulfate) 90 Mcg/Act Aer 2 Puff INH DAILY PRN Zyvox (Linezolid) 600 Mg Tab 600 Mg PO Q12H 8 Days Reported Cardura (Doxazosin Mesylate) 2 Mg Tab 2 Mg PO DAILY Plaquenil (Hydroxychloroquine Sulfate) 200 Mg Tab 200 Mg PO BID Take with food Prednisone 2.5 Mg Tab 1.25 Mg PO BID Atorvastatin (Atorvastatin Calcium) 10 Mg Tab 5 Mg PO HS Calcitriol 0.25 Mcg Cap 0.25 Mcg PO DIRECTED sunday, sunday, sunday and sunday Ambien (Zolpidem Tartrate) 10 Mg Tab 10 Mg PO HS PRN Oxycodone-Acetaminophen 5-325 mg Tab 1 Tab PO Q6H PRN Multiple Vitamin 1 Tab 1 Tab PO DAILY Gabapentin 100 Mg Cap 100 Mg PO TID Eliquis (Apixaban) 2.5 Mg Tab 2.5 Mg PO BID Fentanyl Patch 72 HR (Fentanyl) 75 Mcg/Hr Patch 75 Mcg T-DERMAL Q72H Remove old patch when new one placed. Vitamin D2 (Ergocalciferol) 2,000 Unit Tab 50,000 Units PO EVERY 2 WEEKS Calcium 600 with Vitamin D (Calcium Carbonate-Cholecalciferol) 600-400 mg-Unit Tab 1 Tab PO BID Ziac (Bisoprolol-Hydrochlorothiazide) 2.5-6.25 Mg Tab 0.05 Tab PO DAILY Alprazolam 0.5 Mg Tab 0.5 Mg PO DIRECTED PRN Hydrocodone-Acetaminophen 5-300 Mg Tab 1 Tab PO Q6H PRN Allergies: Coded Allergies: Iodinated Contrast- Oral and IV Dye (Verified Allergy, Severe, 05/21/17) ALLERGY DURING HEART CATH YEARS AGO PER PATIENT amitriptyline (Unverified Allergy, Severe, 05/21/17) diatrizoate meglumine (Unverified Allergy, Severe, Hypotension, 05/21/17) iodixanol (Unverified Allergy, Severe, Hypotension, 05/21/17) iohexol (Unverified Allergy, Severe, Hypotension, 05/21/17) pentazocine (Unverified Allergy, Severe, BRADYCARDIA, DECREASE NEURO STATUS, 05/21/17) pregabalin (Unverified Allergy, Severe, 05/21/17) warfarin (Unverified Allergy, Severe, 05/21/17) Active Ordered Medications Current Medications Medications (Trade) Dose Ordered Sig/Humble Route Start Time Stop Time Status Last Admin Sodium Chloride 1,000 ml @ 100 mls/hr Q10H IV 05/21/17 23:47 (NS Flush) 2 ml UNSCH PRN IV FLUSH 05/22/17 00:00 (NS Flush) 2 ml BID IV FLUSH 05/22/17 09:00 (Tylenol) 650 mg Q4H PRN PO 05/22/17 00:00 (Zofran Inj) 4 mg Q6H PRN IVP 05/22/17 00:00 (Narcan Inj) 0.4 mg UNSCH PRN IV PUSH 05/22/17 00:00 (Yael-Colace) 1 tab BID PO 05/22/17 09:00 (Milk Of Magnesia Liq) 30 ml Q12H PRN PO 05/22/17 00:00 (Senokot) 17.2 mg Q12H PRN PO 05/22/17 00:00 (Dulcolax Supp) 10 mg DAILY PRN RECTAL 05/22/17 00:00 (Lactulose Liq) 30 ml DAILY PRN PO 05/22/17 00:00 Pharmacy Profile Note 0 ml @ 0 mls/hr UNSCH OTHER 05/22/17 00:00 Piperacillin Sod/ Tazobactam Sod 50 ml @ 100 mls/hr Q6H IV 05/22/17 03:00 Family History Patient denies any family history heart disease or cancer. Social History Tobacco use: Denies Alcohol use: Denies Illicit drug use: Denies Physical Exam Vital Signs Vital Signs Date Time Temp Pulse Resp B/P (MAP) Pulse Ox O2 Delivery O2 Flow Rate FiO2 05/21/17 20:54 18 05/21/17 20:38 66 16 113/70 (84) 97 Room Air 05/21/17 16:38 98.4 61 18 151/76 (101) 98 Physical Exam GENERAL: This is a well-nourished, well-developed patient, in no apparent distress. SKIN: Right third toe ulcer, erythema, swelling, HEAD: Atraumatic. Normocephalic. EYES: Pupils equal round and reactive.No injection or drainage. ENT: Nose without bleeding, purulent drainage or septal hematoma.Airway patent. NECK: Trachea midline. No JVD or lymphadenopathy. CARDIOVASCULAR: Regular rate and rhythm without murmurs, gallops, or rubs. RESPIRATORY: Clear to auscultation. Breath sounds equal bilaterally. No wheezes , rales, or rhonchi. GASTROINTESTINAL: Abdomen soft, non-tender, nondistended. No guarding. MUSCULOSKELETAL: Extremities without clubbing, cyanosis, or edema. Slight right toe tenderness. No calf tenderness. NEUROLOGICAL: Awake and alert. Motor and sensory grossly within normal limits. Normal speech. Laboratory Laboratory Tests Test 05/21/17 20:35 White Blood Count 6.4 Red Blood Count 4.46 Hemoglobin 13.3 Hematocrit 38.5 Mean Corpuscular Volume 86.2 Mean Corpuscular Hemoglobin 29.8 Mean Corpuscular Hemoglobin Concent 34.6 Red Cell Distribution Width 15.7 Platelet Count 133 Mean Platelet Volume 9.3 Neutrophils (%) (Auto) 76.1 Lymphocytes (%) (Auto) 12.5 Monocytes (%) (Auto) 10.3 Eosinophils (%) (Auto) 0.8 Basophils (%) (Auto) 0.3 Neutrophils # (Auto) 4.8 Lymphocytes # (Auto) 0.8 Monocytes # (Auto) 0.7 Eosinophils # (Auto) 0.1 Basophils # (Auto) 0.0 CBC Comment DIFF FINAL Differential Comment Erythrocyte Sedimentation Rate 17 Prothrombin Time 10.8 Prothromb Time International Ratio 1.1 Activated Partial Thromboplast Time 27.4 Blood Urea Nitrogen 29 Creatinine 1.50 Random Glucose 172 Calcium Level 9.5 Sodium Level 137 Potassium Level 3.8 Chloride Level 101 Carbon Dioxide Level 29.6 Anion Gap 6 Estimat Glomerular Filtration Rate 46 C-Reactive Protein 3.20 Result Diagram: 05/21/17203405/21/172034 Imaging Last Impressions Foot X-Ray 05/21/17 0000 Signed Impressions: Service Date/Time: Sunday, May 21, 2017 16:58 - CONCLUSION: 1. Soft tissue swelling involving the right third digit distally as well as erosive changes involving the third distal phalangeal tuft. If there is strong clinical concern for osteomyelitis, an MRI with contrast would be more sensitive in this patient. 2. Tiny foreign body within the soft tissues of the heel which may result in a tiny broken needle. MD Blaek Glass VTE Risk Assessment Blake VTE Risk Assessment: Mod/High Risk (score >= 2) Caprini Risk Assessment Model Point Value = 1 Point Value = 2 Point Value = 3 Point Value = 5 Age 41-60 Minor surgery BMI > 25 kg/m2 Swollen legs Varicose veins or History of unexplained or recurrent spontaneous Oral contraceptives or hormone replacement Sepsis (< 1 month) Serious lung disease, including pneumonia (< 1 month) Abnormal pulmonary function Acute myocardial infarction Congestive heart failure (< 1 month) History of inflammatory bowel disease Medical patient at bed rest Age 61-74 Arthroscopic surgery Major open surgery (> 45 min) Laparoscopic surgery (> 45 min) Malignancy Confined to bed (> 72 hours) Immobilizing plaster cast Central venous access Age >= 75 History of VTE Family history of VTE Factor V Leiden Prothrombin [id number] Lupus anticoagulant Anticardiolipin antibodies Elevated serum homocysteine Heparin-induced thrombocytopenia Other congenital or acquired thrombophilia Stroke (< 1 month) Elective arthroplasty Hip, pelvis, or leg fracture Acute spinal cord injury (< 1 month) Prophylaxis Regimen Total Risk Factor Score Risk Level Prophylaxis Regimen 0-1 Low Early ambulation 2 Moderate Order ONE of the following: *Sequential Compression Device (SCD) *Heparin 5000 units SQ BID 3-4 Higher Order ONE of the following medications: *Heparin 5000 units SQ TID *Enoxaparin/Lovenox 40 mg SQ daily (WT < 150 kg, CrCl > 30 mL/min) *Enoxaparin/Lovenox 30 mg SQ daily (WT < 150 kg, CrCl > 10-29 mL/min) *Enoxaparin/Lovenox 30 mg SQ BID (WT < 150 kg, CrCl > 30 mL/min) AND/OR *Sequential Compression Device (SCD) 5 or more Highest Order ONE of the following medications: *Heparin 5000 units SQ TID (Preferred with Epidurals) *Enoxaparin/Lovenox 40 mg SQ daily (WT < 150 kg, CrCl > 30 mL/min) *Enoxaparin/Lovenox 30 mg SQ daily (WT < 150 kg, CrCl > 10-29 mL/min) *Enoxaparin/Lovenox 30 mg SQ BID (WT < 150 kg, CrCl > 30 mL/min) AND *Sequential Compression Device (SCD) Assessment and Plan Problem List: (1) Chronic kidney disease ICD Code: N18.9 - Chronic kidney disease, unspecified Status: Chronic (2) Cellulitis ICD Code: L03.90 - Cellulitis, unspecified Status: Acute (3) Peripheral neuropathy ICD Code: G62.9 - Polyneuropathy, unspecified Status: Chronic (4) HTN (hypertension) ICD Code: I10 - Essential (primary) hypertension Status: Chronic Assessment and Plan 77 y/o male with CKD stage 3, kidney stones, chronic uti's, HTN, HLD, DVTs on Eliquis, neuropathy presented to the ED with complaints of a ulcer to right 3rd toe. Cellulitis, right third digit, rule out osteomyelitis CRP 3.2 -Foot MRI reviewed and shows cellulitis of the third digit which does extend to the distal phalanx but no definite osteomyelitis -IV antibiotics Zosyn and vancomycin -Pain management with IV morphine -Consult podiatry Peripheral neuropathy chronic -Arterial Doppler WALTER ordered Chronic kidney disease, stage III -Trend creatinine -Avoid nephrotoxins -Continue home medications Hypertension, chronic -Resume home medications, monitor vitals DVT prophylaxis: SCDs, once surgery is determined Discussed Condition With Patient, patient's and the ED physician Physician Certification 2 Midnight Certification Type: Admission for Inpatient Services Order for Inpatient Services The services are ordered in accordance with Medicare regulations or non- Medicare payer requirements, as applicable. In the case of services not specified as inpatient-only, they are appropriately provided as inpatient services in accordance with the 2-midnight benchmark. Estimated LOS (days): 2 days is the estimated time the patient will need to remain in the hospital, assuming treatment plan goals are met and no additional complications. Post-Hospital Plan: Home Problem Qualifiers (1) Chronic kidney disease: Qualified Codes: N18.3 - Chronic kidney disease, stage 3 (moderate) (2) Cellulitis: Qualified Codes: L03.031 - Cellulitis of right toe Tomasa Bueno May 21, 2017 23:51
[2017-05-21] MEDS ORDERED: CARD2TAB PO (23:59)
[2017-05-22] VITALS (8 sets, daily range): BP systolic 102–129; BP diastolic 50–70; PULSE 57–72; RESP 16–20; TEMP 96.5–98.4; O2SAT 96–99
[2017-05-22] MEDS ORDERED: LACTULOSE SYRUP 20 GM/30 ML CUP PO PRN
[2017-05-22] MEDS ORDERED: MAGNESIUM HYDROXIDE SUSP 30 ML CUP PO PRN
[2017-05-22] MEDS ORDERED: ONDANSETRON HCL 4 MG/2 ML VIAL IVP PRN
[2017-05-22] MEDS ORDERED: Vancomycin Consult Pharmacy 1 EA OTHER SCH
[2017-05-22] MEDS ORDERED: NALOXONE HCL 0.4 MG/ML AMP IV PUSH PRN
[2017-05-22] MEDS ORDERED: BISACODYL 10 MG SUPP RECTAL PRN
[2017-05-22] MEDS ORDERED: SENNOSIDES 8.6 MG TAB PO PRN
[2017-05-22] MEDS ORDERED: ACETAMINOPHEN 325 MG TAB PO PRN
[2017-05-22] MEDS: SODIUM CHLOR 0.9% 1000 ML INJ 1,000 ML IV SCH ×2 (00:20→14:59)
--- NOTE | 2017-05-22 00:21 | RADRPT ---
EXAM DATE/TIME: 05/21/2017 22:55 [facility] COMPARISON: MRI FOOT RIGHT W/O CONTRAST, March 11, 2017, 8:30. FOOT RIGHT COMPLETE (PEV4CSA), May 21, 2017, 16:58. INDICATIONS : Osteomyelitis. Third toe swelling and cut on the underside of third toe. CONTRAST: 18 cc Omniscan (gadodiamide) IV MEDICAL HISTORY : Renal calculi. Hypertension. Skin cancer SURGICAL HISTORY : Fusion, lumbar. Appendectomy. Colostomy. Knee sx, Hernia repair ENCOUNTER: Initial ACUITY: 3 day PAIN SCORE: 3/10 LOCATION: Right foot TECHNIQUE: Multiplanar, multisequence MRI examination was performed without contrast and after the intravenous a dministration of gadolinium. FINDINGS: BONE/CARTILAGE: Bone marrow signal is homogeneous with the exception of some reactive changes in the first metatarsal . No definite high signal in the third toe. There is some enhancement of the soft tissues of the dors um of the distal foot. There is prominence of the soft tissues of the tip of the third digit which do es extend to the periosteum but no high signal seen. Articular cartilage signal is within normal limi ts. TENDONS: All of the visualized tendons are intact. MISCELLANEOUS: Plantar aponeurosis is intact. Sinus tarsi is within normal limits. POST-CONTRAST: There is enhancement of the dorsum of the soft tissues and along the third digit. CONCLUSION: 1. Cellulitis of the third digit which does extend to the periosteum of the distal phalanx but no def inite osteomyelitis. Jason Echeverria MD on May 22, 2017 at 0:08 Board Certified Radiologist. This report was verified electronically.
[2017-05-22] MEDS ORDERED: POTA10TA2 PO (00:38)
[2017-05-22] MEDS ORDERED: FURO20TA PO (00:38)
[2017-05-22] MEDS ORDERED: POTASSIUM CHLORIDE 10 MEQ CONTROLLED RELEASE TAB PO ONE ×2 (00:45→17:00)
[2017-05-22] MEDS ORDERED: FUROSEMIDE 20 MG TAB PO ONE (00:45)
[2017-05-22] MEDS ORDERED: PILL SPLITTER OTHER PRN (02:00)
[2017-05-22] MEDS: MORPHINE SULFATE 4 MG/ML INJ IV PUSH PRN ×5 (02:12→22:18)
[2017-05-22] MEDS: PIPERACIL-TAZO 3.375 GM PREMIX 50 ML IV SCH ×4 (02:52→21:14)
[2017-05-22 06:42] LABS: AUTOMATED NEUTROPHIL # 5.5 TH/MM3 (1.8-7.7); BASOPHIL % 0.1 % (0.0-2.0); EOSINOPHIL # 0.1 TH/MM3 (0-0.4); EOSINOPHIL % 1.8 % (0.0-4.0); HEMATOCRIT 37.5 % (39.0-51.0); HEMOGLOBIN 12.8 GM/DL (13.0-17.0); LYMPH % 15.7 % (9.0-44.0); LYMPHOCYTE # 1.2 TH/MM3 (1.0-4.8); MEAN CELL VOLUME 87.3 FL (80.0-100.0); MEAN CORPUSCULAR HEMOGLOBIN 29.8 PG (27.0-34.0); MEAN CORPUSCULAR HGB CONC 34.2 % (32.0-36.0); MEAN PLATELET VOLUME 9.3 FL (7.0-11.0); MONO % 10.3 % (0.0-8.0); MONOCYTE # 0.8 TH/MM3 (0-0.9); NEUT % 72.1 % (16.0-70.0); PLATELET COUNT 122 TH/MM3 (150-450); WHITE BLOOD COUNT 7.6 TH/MM3 (4.0-11.0)
[2017-05-22 06:57] LABS: BICARBONATE 30.9 MEQ/L (21.0-32.0); CALCIUM 8.9 MG/DL (8.5-10.1); CREATININE 1.29 MG/DL (0.60-1.30)
[2017-05-22] MEDS: DOCUSATE SODIUM 50 MG/SENNA 8.6 MG TAB PO SCH ×2 (09:00→21:00)
[2017-05-22] MEDS: GABAPENTIN 100 MG CAP PO SCH ×3 (10:09→17:32)
[2017-05-22] MEDS: FUROSEMIDE 20 MG TAB PO SCH ×2 (10:09→21:03)
[2017-05-22] MEDS: predniSONE 5 MG/5 ML CUP PO SCH ×2 (11:07→21:02)
[2017-05-22] MEDS: BISOPROLOL FUMARATE 5 MG TAB PO SCH (11:09)
[2017-05-22] MEDS: DOXAZOSIN MESYLATE 2 MG TAB PO SCH (11:09)
[2017-05-22] MEDS: HYDROXYCHLOROQUINE SULFATE 200 MG TAB PO SCH ×2 (11:09→21:04)
--- NOTE | 2017-05-22 14:25 | RADRPT ---
EXAM DATE/TIME: 05/22/2017 00:00 [facility] COMPARISON: No previous studies available for comparison. INDICATIONS : Osteomyelitis TECHNIQUE: Four-cuff ankle and brachial pressures were obtained. Pulse cuff waveform tracings of the ankles were recorded, and ankle-brachial indices were calculated. PRESSURES (mmHg): Brachial (arm): Right IV SITE Left 132 Ankle: Right 150 Left 135 WALTER: Right 1.14 Left 1.02 TBI: Right 0.82 Left 0.73 PULSED CUFF WAVEFORMS: Demonstrate normal amplitude bilaterally. CONCLUSION: Mild disease bilaterally. CT angiography of the abdominal aorta and lower extremities is recommended for further evaluation if clinically indicated. Rancho Henderson MD on May 22, 2017 at 14:22 Board Certified Radiologist. This report was verified electronically.
[2017-05-22] MEDS: SODIUM CHLORIDE 0.9% FLUSH 10 ML FLUSH IV FLUSH SCH ×2 (14:59→21:00)
--- NOTE | 2017-05-22 16:12 | HHI.PR ---
Subjective Remarks Follow up cellulitis right 3rd toe 05/22/17-patient seen and examined and he is currently NPO pending further evaluation from Podiatry. Afebrile and denies any toe pain. by the bedside Objective Vitals Vital Signs Date Time Temp Pulse Resp B/P (MAP) Pulse Ox O2 Delivery O2 Flow Rate FiO2 05/22/17 15:33 97.9 57 20 102/53 (69) 99 05/22/17 13:56 97.9 58 20 129/59 (82) 99 05/22/17 08:00 96.5 62 17 114/60 (78) 99 05/22/17 04:53 98.2 71 16 116/70 (85) 99 05/22/17 04:01 65 16 113/69 (84) 96 Room Air 05/22/17 02:25 16 05/22/17 00:02 61 18 124/59 (80) 98 Room Air 05/21/17 20:54 18 05/21/17 20:38 66 16 113/70 (84) 97 Room Air 05/21/17 16:38 98.4 61 18 151/76 (101) 98 I/O 05/21/17 05/21/17 05/21/17 05/22/17 05/22/17 05/22/17 07:00 15:00 23:00 07:00 15:00 23:00 Intake Total 312 ml 50 ml Balance 312 ml 50 ml Intake IV Total 312 ml 50 ml Result Diagram: 05/22/17 0508 05/22/17 0508 Imaging Last Impressions Foot X-Ray 05/21/17 0000 Signed Impressions: Service Date/Time: Sunday, May 21, 2017 16:58 - CONCLUSION: 1. Soft tissue swelling involving the right third digit distally as well as erosive changes involving the third distal phalangeal tuft. If there is strong clinical concern for osteomyelitis, an MRI with contrast would be more sensitive in this patient. 2. Tiny foreign body within the soft tissues of the heel which may result in a tiny broken needle. Rah David MD Foot MRI 05/21/17 0000 Signed Impressions: Service Date/Time: Sunday, May 21, 2017 22:55 - CONCLUSION: 1. Cellulitis of the third digit which does extend to the periosteum of the distal phalanx but no definite osteomyelitis. Jason Echeverria MD Objective Remarks GENERAL: NAD SKIN: Warm and dry. erythema surrounding right 3rd toe HEAD: Normocephalic. EYES: No scleral icterus. No injection or drainage. NECK: Supple, trachea midline. No JVD or lymphadenopathy. CARDIOVASCULAR: Regular rate and rhythm without murmurs, gallops, or rubs. RESPIRATORY: Breath sounds equal bilaterally. No accessory muscle use. GASTROINTESTINAL: Abdomen soft, non-tender, nondistended. MUSCULOSKELETAL: No cyanosis, or edema. BACK: Nontender without obvious deformity. No CVA tenderness. A/P Problem List: (1) Chronic kidney disease ICD Code: N18.9 - Chronic kidney disease, unspecified Status: Chronic (2) Cellulitis ICD Code: L03.90 - Cellulitis, unspecified Status: Acute (3) Peripheral neuropathy ICD Code: G62.9 - Polyneuropathy, unspecified Status: Chronic (4) HTN (hypertension) ICD Code: I10 - Essential (primary) hypertension Status: Chronic Assessment and Plan 77 year-old man with Cellulitis, right third digit -Foot MRI reviewed and shows cellulitis of the third digit which does extend to the distal phalanx but no definite osteomyelitis -Foot MRI without any evidence of osteomyelitis -IV antibiotics Zosyn and vancomycin -Pain management with IV morphine -Podiatry consultation pending Peripheral neuropathy chronic -Arterial Doppler WALTER ordered and consider CTA aorta with runoff Chronic kidney disease, stage III -Monitor Bun and creatinine -Avoid nephrotoxins -Continue home medications Hypokalemia Give potassium 60 mEq 1 now and monitor Hypertension, chronic -Continue home medications DVT prophylaxis: SCDs, Problem Qualifiers (1) Chronic kidney disease: Qualified Codes: N18.3 - Chronic kidney disease, stage 3 (moderate) (2) Cellulitis: Qualified Codes: L03.031 - Cellulitis of right toe Jason Ramos MD May 22, 2017 16:12
[2017-05-22] MEDS: VANCOMYCIN 1,500 MG/NS 500 ML IV SCH ×2 (17:00)
[2017-05-22] MEDS: POTASSIUM CHLORIDE 10 MEQ CONTROLLED RELEASE TAB PO SCH (21:04)
[2017-05-22] MEDS: ATORVASTATIN 10 MG TAB PO SCH (21:05)
[2017-05-22] MEDS: ZOLPIDEM TARTRATE 10 MG TAB PO PRN (22:16)
--- NOTE | 2017-05-22 23:13 | PD.CONS ---
History of Present Illness Service Foot and Ankle Surgery/Podiatry Consult Requested By Reason for Consult Right third infection Primary Care Physician Unknown Diagnoses: History of Present Illness Podiatry consulted for this 77-year-old male with chronic kidney disease stage III, kidney stones, chronic UTIs, hypertension, hyperlipidemia, DVTs on Eliquis , and neuropathy for ulcer to right third toe patient was seen in my office and secondary to vascular status and degree of infection to right third digit he was encouraged to proceed to the emergency room for admission there was purulent drainage noted to digit in office he denies any nausea vomiting or fevers. Reports night sweats and chills he denies any associated chest pain or shortness of breath reports there is tenderness to the right toe that it is not that painful since he does have neuropathy. Review of Systems Constitutional: DENIES: Fatigue, Fever Endocrine: DENIES: Heat/cold intolerance Eyes: DENIES: Blurred vision Ears, nose, mouth, throat: DENIES: Hearing loss Respiratory: DENIES: Cough Cardiovascular: DENIES: Chest pain, Palpitations Gastrointestinal: DENIES: Nausea, Vomiting Musculoskeletal: DENIES: Joint pain Psychiatric: DENIES: Anxiety, Confusion Past Family Social History Allergies: Coded Allergies: Iodinated Contrast- Oral and IV Dye (Verified Allergy, Severe, 05/21/17) ALLERGY DURING HEART CATH YEARS AGO PER PATIENT amitriptyline (Unverified Allergy, Severe, 05/21/17) diatrizoate meglumine (Unverified Allergy, Severe, Hypotension, 05/21/17) iodixanol (Unverified Allergy, Severe, Hypotension, 05/21/17) iohexol (Unverified Allergy, Severe, Hypotension, 05/21/17) pentazocine (Unverified Allergy, Severe, BRADYCARDIA, DECREASE NEURO STATUS, 05/21/17) pregabalin (Unverified Allergy, Severe, 05/21/17) warfarin (Unverified Allergy, Severe, 05/21/17) Past Medical History as noted in HPI Active Ordered Medications Current Medications Medications (Trade) Dose Ordered Sig/Humble Route Start Time Stop Time Status Last Admin (NS Flush) 2 ml UNSCH PRN IV FLUSH 05/22/17 00:00 (NS Flush) 2 ml BID IV FLUSH 05/22/17 09:00 05/22/17 14:59 (Tylenol) 650 mg Q4H PRN PO 4/10/18 00:00 (Zofran Inj) 4 mg Q6H PRN IVP 05/22/17 00:00 (Narcan Inj) 0.4 mg UNSCH PRN IV PUSH 05/22/17 00:00 (Yael-Colace) 1 tab BID PO 05/22/17 09:00 (Milk Of Magnesia Liq) 30 ml Q12H PRN PO 05/22/17 00:00 (Senokot) 17.2 mg Q12H PRN PO 05/22/17 00:00 (Dulcolax Supp) 10 mg DAILY PRN RECTAL 05/22/17 00:00 (Lactulose Liq) 30 ml DAILY PRN PO 05/22/17 00:00 Pharmacy Profile Note 0 ml @ 0 mls/hr UNSCH OTHER 05/22/17 00:00 Piperacillin Sod/ Tazobactam Sod 50 ml @ 100 mls/hr Q6H IV 05/22/17 03:00 05/22/17 21:14 (Morphine Inj) 2 mg Q3H PRN IV PUSH 05/22/17 01:15 05/22/17 22:18 (Lipitor) 5 mg HS PO 05/22/17 21:00 05/22/17 21:05 (Cardura) 2 mg DAILY PO 05/22/17 09:00 05/22/17 11:09 (Lasix) 20 mg BID PO 05/22/17 09:00 05/22/17 21:03 (Neurontin) 100 mg TID PO 05/22/17 09:00 05/22/17 17:32 (Plaquenil) 200 mg BID PO 05/22/17 09:00 05/22/17 21:04 (KCl) 10 meq HS PO 05/22/17 21:00 05/22/17 21:04 (Zebeta) 1.25 mg DAILY PO 05/22/17 09:00 05/22/17 11:09 (predniSONE LIQ) 1.25 mg BID PO 05/22/17 09:00 05/22/17 21:02 (Pill Splitter) 1 ea UNSCH PRN OTHER 05/22/17 02:00 Vancomycin HCl 1500 mg/Sodium Chloride 515 ml @ 257.5 mls/ hr Q24H IV 05/22/17 17:00 05/22/17 17:00 Miscellaneous Information SPECIFIC LAB TO BE DRAWN:VANCOMYCIN TROUGH DATE TO... ONCE ONCE .XX 05/25/17 16:45 05/25/17 16:46 (Ambien) 10 mg HS PRN PO 05/22/17 22:15 05/22/17 22:16 Sodium Chloride 1,000 ml @ 100 mls/hr Q10H IV 05/23/17 00:00 Physical Exam Vital Signs Vital Signs Date Time Temp Pulse Resp B/P (MAP) Pulse Ox O2 Delivery O2 Flow Rate FiO2 05/22/17 22:19 69 109/56 (73) 05/22/17 20:24 98.4 72 18 102/50 (67) 97 05/22/17 15:33 97.9 57 20 102/53 (69) 99 05/22/17 13:56 97.9 58 20 129/59 (82) 99 05/22/17 08:00 96.5 62 17 114/60 (78) 99 05/22/17 04:53 98.2 71 16 116/70 (85) 99 05/22/17 04:01 65 16 113/69 (84) 96 Room Air 05/22/17 02:25 16 05/22/17 00:02 61 18 124/59 (80) 98 Room Air Physical Exam GENERAL: This is a well-nourished, well-developed patient, in no apparent distress. SKIN: Right third digit ulceration HEAD: Atraumatic. EYES: Pupils equal round and reactive. ENT: Airway patent. NECK: Trachea midline. RESPIRATORY: Nonlabored breathing. MUSCULOSKELETAL:. Negative Homans sign bilaterally. NEUROLOGICAL: Awake and alert. Normal speech. Lower extremity physical exam: Vascular: Dorsalis pedis nonpalpable, posterior tibial nonpalpable. Capillary refill time within normal limits to digits 5 bilateral foot. Edema present right third digit Neuro: Gross sensation intact to bilateral lower extremity. Pinpoint sensation decreased. No hyperalgesia noted to bilateral lower extremity Dermatology: Distal third digit ulceration noted with bulbous appearance to toe , serous drainage noted from distal aspect of the third digit. Increased edema and erythema noted to third digit not extending into metatarsal joint. No ascending erythema or lymphangitis noted. Musculoskeletal: Tender to palpation to right third digit. Laboratory Laboratory Tests Test 05/22/17 05:08 White Blood Count 7.6 Red Blood Count 4.30 Hemoglobin 12.8 Hematocrit 37.5 Mean Corpuscular Volume 87.3 Mean Corpuscular Hemoglobin 29.8 Mean Corpuscular Hemoglobin Concent 34.2 Red Cell Distribution Width 16.0 Platelet Count 122 Mean Platelet Volume 9.3 Neutrophils (%) (Auto) 72.1 Lymphocytes (%) (Auto) 15.7 Monocytes (%) (Auto) 10.3 Eosinophils (%) (Auto) 1.8 Basophils (%) (Auto) 0.1 Neutrophils # (Auto) 5.5 Lymphocytes # (Auto) 1.2 Monocytes # (Auto) 0.8 Eosinophils # (Auto) 0.1 Basophils # (Auto) 0.0 CBC Comment DIFF FINAL Differential Comment Blood Urea Nitrogen 24 Creatinine 1.29 Random Glucose 98 Calcium Level 8.9 Sodium Level 141 Potassium Level 3.3 Chloride Level 101 Carbon Dioxide Level 30.9 Anion Gap 9 Estimat Glomerular Filtration Rate 54 Result Diagram: 05/22/17 0508 05/22/17 0508 Imaging Last Impressions Foot X-Ray 05/21/17 0000 Signed Impressions: Service Date/Time: Sunday, May 21, 2017 16:58 - CONCLUSION: 1. Soft tissue swelling involving the right third digit distally as well as erosive changes involving the third distal phalangeal tuft. If there is strong clinical concern for osteomyelitis, an MRI with contrast would be more sensitive in this patient. 2. Tiny foreign body within the soft tissues of the heel which may result in a tiny broken needle. Rah David MD Foot MRI 05/21/17 0000 Signed Impressions: Service Date/Time: Sunday, May 21, 2017 22:55 - CONCLUSION: 1. Cellulitis of the third digit which does extend to the periosteum of the distal phalanx but no definite osteomyelitis. Jason Echeverria MD Assessment and Plan Assessment and Plan 77-year-old male with right third digit infection Patient examined and evaluated with all questions answered X-ray, MRI, vascular studies reviewed with patient Patient at this time is refusing amputation and would like to move forward with antibiotics for right third digit I believe this is reasonable as MRI did not show osteomyelitis, however due to appearance of toe and serous drainage, I do feel there is some degree of possible bone infection Would appreciate vascular and infectious disease consult for recommendations Dressings to consist of wound gel and dry sterile dressing to right third digit Weight-bearing as tolerated in surgical shoe Pamela Fonseca DPM May 22, 2017 23:13
[2017-05-23 00:39] VITALS: BP 109/56; PULSE 64; RESP 20; TEMP 97.7; O2SAT 96
[2017-05-23] MEDS: SODIUM CHLOR 0.9% 1000 ML INJ 1,000 ML IV SCH ×3 (02:57→20:00)
[2017-05-23] MEDS: PIPERACIL-TAZO 3.375 GM PREMIX 50 ML IV SCH ×4 (03:41→20:24)
[2017-05-23 05:02] VITALS: BP 136/67; PULSE 63; RESP 20; TEMP 97.6; O2SAT 97
[2017-05-23 08:00] VITALS: BP 123/60; PULSE 60; RESP 19; TEMP 98.3; O2SAT 97
[2017-05-23] MEDS: MORPHINE SULFATE 4 MG/ML INJ IV PUSH PRN ×2 (08:00→20:24)
[2017-05-23] MEDS: DOXAZOSIN MESYLATE 2 MG TAB PO SCH (09:00)
[2017-05-23] MEDS: BISOPROLOL FUMARATE 5 MG TAB PO SCH (09:00)
[2017-05-23] MEDS: FUROSEMIDE 20 MG TAB PO SCH ×2 (09:00→20:25)
[2017-05-23] MEDS: SODIUM CHLORIDE 0.9% FLUSH 10 ML FLUSH IV FLUSH SCH ×2 (09:00→20:24)
[2017-05-23] MEDS: DOCUSATE SODIUM 50 MG/SENNA 8.6 MG TAB PO SCH ×2 (09:00→20:25)
[2017-05-23] MEDS: predniSONE 5 MG/5 ML CUP PO SCH ×2 (09:25→20:25)
[2017-05-23] MEDS: GABAPENTIN 100 MG CAP PO SCH ×3 (09:26→18:31)
[2017-05-23] MEDS: HYDROXYCHLOROQUINE SULFATE 200 MG TAB PO SCH ×2 (09:27→20:25)
[2017-05-23 10:04] LABS: CALCIUM 8.2 MG/DL (8.5-10.1); CREATININE 1.17 MG/DL (0.60-1.30)
--- NOTE | 2017-05-23 11:27 | HHI.PR ---
Subjective Remarks Follow up cellulitis right 3rd toe 05/22/17-patient seen and examined and he is currently NPO pending further evaluation from Podiatry. Afebrile and denies any toe pain. by the bedside 05/23/17-patient seen and examined, states he is still having toe pain, Patient declined toe amputation. Afebrile Objective Vitals Vital Signs Date Time Temp Pulse Resp B/P (MAP) Pulse Ox O2 Delivery O2 Flow Rate FiO2 05/23/17 08:00 98.3 60 19 123/60 (81) 97 05/23/17 05:02 97.6 63 20 136/67 (90) 97 05/23/17 00:39 97.7 64 20 109/56 (73) 96 05/22/17 22:19 69 109/56 (73) 05/22/17 20:24 98.4 72 18 102/50 (67) 97 05/22/17 15:33 97.9 57 20 102/53 (69) 99 05/22/17 13:56 97.9 58 20 129/59 (82) 99 I/O 05/22/17 05/22/17 05/22/17 05/23/17 05/23/17 05/23/17 07:00 15:00 23:00 07:00 15:00 23:00 Intake Total 312 ml 50 ml 50 ml 1000 ml Output Total 120 ml 400 ml Balance 312 ml 50 ml -70 ml 600 ml Intake IV Total 312 ml 50 ml 50 ml 1000 ml Output Urine Total 120 ml 400 ml # Bowel Movements 1 Result Diagram: 05/22/17 0508 05/23/17 0835 Imaging Last Impressions Foot X-Ray 05/21/17 0000 Signed Impressions: Service Date/Time: Sunday, May 21, 2017 16:58 - CONCLUSION: 1. Soft tissue swelling involving the right third digit distally as well as erosive changes involving the third distal phalangeal tuft. If there is strong clinical concern for osteomyelitis, an MRI with contrast would be more sensitive in this patient. 2. Tiny foreign body within the soft tissues of the heel which may result in a tiny broken needle. Rah David MD Foot MRI 05/21/17 0000 Signed Impressions: Service Date/Time: Sunday, May 21, 2017 22:55 - CONCLUSION: 1. Cellulitis of the third digit which does extend to the periosteum of the distal phalanx but no definite osteomyelitis. Jason Echeverria MD Objective Remarks GENERAL: NAD SKIN: Warm and dry. erythema surrounding right 3rd toe HEAD: Normocephalic. EYES: No scleral icterus. No injection or drainage. NECK: Supple, trachea midline. No JVD or lymphadenopathy. CARDIOVASCULAR: Regular rate and rhythm without murmurs, gallops, or rubs. RESPIRATORY: Breath sounds equal bilaterally. No accessory muscle use. GASTROINTESTINAL: Abdomen soft, non-tender, nondistended. MUSCULOSKELETAL: No cyanosis, or edema. BACK: Nontender without obvious deformity. No CVA tenderness. A/P Problem List: (1) Chronic kidney disease ICD Code: N18.9 - Chronic kidney disease, unspecified Status: Chronic (2) Cellulitis ICD Code: L03.90 - Cellulitis, unspecified Status: Acute (3) Peripheral neuropathy ICD Code: G62.9 - Polyneuropathy, unspecified Status: Chronic (4) HTN (hypertension) ICD Code: I10 - Essential (primary) hypertension Status: Chronic Assessment and Plan 77 year-old man with Cellulitis, right third digit -Foot MRI reviewed and shows cellulitis of the third digit which does extend to the distal phalanx but no definite osteomyelitis -Foot MRI without any evidence of osteomyelitis -IV antibiotics Zosyn and vancomycin -Pain management with IV morphine -Appreciate input from Podiatry however patient declined any amputation -Will consult Infectious disease specialist Peripheral neuropathy chronic/PAD -Arterial Doppler WALTER reviewed and will get CTA aorta with runoff Chronic kidney disease, stage III -Monitor Bun and creatinine -Avoid nephrotoxins -Continue home medications Hypokalemia improved s/p electrolyte improvement Hypertension, chronic -Continue home medications DVT prophylaxis: SCDs, Problem Qualifiers (1) Chronic kidney disease: Qualified Codes: N18.3 - Chronic kidney disease, stage 3 (moderate) (2) Cellulitis: Qualified Codes: L03.031 - Cellulitis of right toe Jason Ramos MD May 23, 2017 11:27
[2017-05-23 12:00] VITALS: BP 117/74; PULSE 71; RESP 16; TEMP 98.5; O2SAT 98
--- NOTE | 2017-05-23 14:17 | PD.CONS ---
History of Present Illness Service Infectious disease Consult Requested By Dr. Ramos Reason for Consult Evaluate patient with cellulitis of the toe with an ulcer Primary Care Physician Unknown Diagnoses: History of Present Illness Patient seen and examined. Records reviewed. Patient is a 77-year-old male, presented to the hospital for further evaluation of his right third toe. Patient has had a callus on that third toe for at least 5 years. He has had on and off problem with it before it would open and then it would close up. 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 He didn't have any problem up until about 4 days ago when it was noted to be a little red and swollen and it had some reddish drainage. There was no odor to it. A has not neuropathy and does not really feel any pain in both feet. He went to his welding machine [employer], and apparently a procedure was done on that toe and purulent drainage came out. He was advised to go to the hospital for further evaluation and treatment. He denies any fever or chills or sweats. He has not had any significant respiratory complaint, GI or any urinary complaint. Back in February he was hospitalized here and was found to have UTI. He had enterococcus in the urine culture. One of his blood culture came back with MRSA , and at that time it was felt that it was probably related to some cellulitis in his third toe. He received 14 days of oral Zyvox when he was discharged. Since admission he has not been febrile. His sedimentation rate is normal. CRP is elevated. MRI did not show any abscess or any osteomyelitis. Infectious disease consultation has been requested to evaluate the patient. Review of Systems Constitutional: DENIES: Fever, Chills, Night Sweats Eyes: DENIES: Eye pain Ears, nose, mouth, throat: DENIES: Nasal discharge, Oral lesions, Throat pain, Ear Pain, Sinus Pain Respiratory: COMPLAINS OF: Shortness of breath, DENIES: Cough, Sputum production Cardiovascular: COMPLAINS OF: Lower Extremity Edema, DENIES: Chest pain, Palpitations, Syncope Gastrointestinal: DENIES: Constipation, Diarrhea, Nausea, Vomiting, Difficulty Swallowing Genitourinary: DENIES: Urgency, Hematuria, Dysuria Musculoskeletal: COMPLAINS OF: Back pain, DENIES: Muscle aches Integumentary: DENIES: Pruritus, Rash Hematologic/lymphatic: DENIES: Lymphadenopathy Immunologic/allergic: DENIES: Urticaria Neurologic: COMPLAINS OF: Paresthesias, DENIES: Headache, Localized weakness Psychiatric: DENIES: Hallucinations Past Family Social History Allergies: Coded Allergies: Iodinated Contrast- Oral and IV Dye (Verified Allergy, Severe, 05/21/17) ALLERGY DURING HEART CATH YEARS AGO PER PATIENT amitriptyline (Unverified Allergy, Severe, 05/21/17) diatrizoate meglumine (Unverified Allergy, Severe, Hypotension, 05/21/17) iodixanol (Unverified Allergy, Severe, Hypotension, 05/21/17) iohexol (Unverified Allergy, Severe, Hypotension, 05/21/17) pentazocine (Unverified Allergy, Severe, BRADYCARDIA, DECREASE NEURO STATUS, 05/21/17) pregabalin (Unverified Allergy, Severe, 05/21/17) warfarin (Unverified Allergy, Severe, 05/21/17) Past Medical History Multiple DVTs status post IVC filter, currently on Eliquis History of abnormal urine cytology, currently being followed by urology Anxiety Arthritis Asthma Colon polyps Diverticulosis Glomerulonephritis Hyper parathyroidism Hypertension Irregular heartbeat Kidney cyst Peripheral neuropathy Past Surgical History Multiple spinal surgeries Right knee surgery 1980s Colostomy then reversed 2008 Hernia repaired Disc surgery 2010 Active Ordered Medications Current Medications Medications (Trade) Dose Ordered Sig/Humble Route Start Time Stop Time Status Last Admin (NS Flush) 2 ml UNSCH PRN IV FLUSH 05/22/17 00:00 (NS Flush) 2 ml BID IV FLUSH 05/22/17 09:00 05/22/17 14:59 (Tylenol) 650 mg Q4H PRN PO 05/22/17 00:00 (Zofran Inj) 4 mg Q6H PRN IVP 05/22/17 00:00 (Narcan Inj) 0.4 mg UNSCH PRN IV PUSH 05/22/17 00:00 (Yael-Colace) 1 tab BID PO 05/22/17 09:00 (Milk Of Magnesia Liq) 30 ml Q12H PRN PO 05/22/17 00:00 (Senokot) 17.2 mg Q12H PRN PO 05/22/17 00:00 (Dulcolax Supp) 10 mg DAILY PRN RECTAL 05/22/17 00:00 (Lactulose Liq) 30 ml DAILY PRN PO 05/22/17 00:00 Pharmacy Profile Note 0 ml @ 0 mls/hr UNSCH OTHER 05/22/17 00:00 Piperacillin Sod/ Tazobactam Sod 50 ml @ 100 mls/hr Q6H IV 05/22/17 03:00 05/23/17 09:24 (Morphine Inj) 2 mg Q3H PRN IV PUSH 05/22/17 01:15 05/23/17 08:00 (Lipitor) 5 mg HS PO 05/22/17 21:00 05/22/17 21:05 (Cardura) 2 mg DAILY PO 05/22/17 09:00 05/22/17 11:09 (Lasix) 20 mg BID PO 05/22/17 09:00 05/22/17 21:03 (Neurontin) 100 mg TID PO 05/22/17 09:00 05/23/17 09:26 (Plaquenil) 200 mg BID PO 05/22/17 09:00 05/23/17 09:27 (KCl) 10 meq HS PO 05/22/17 21:00 05/22/17 21:04 (Zebeta) 1.25 mg DAILY PO 05/22/17 09:00 05/22/17 11:09 (predniSONE LIQ) 1.25 mg BID PO 05/22/17 09:00 05/23/17 09:25 (Pill Splitter) 1 ea UNSCH PRN OTHER 05/22/17 02:00 Vancomycin HCl 1500 mg/Sodium Chloride 515 ml @ 257.5 mls/ hr Q24H IV 05/22/17 17:00 05/22/17 17:00 Miscellaneous Information SPECIFIC LAB TO BE DRAWN:VANCOMYCIN TROUGH DATE TO... ONCE ONCE .XX 05/25/17 16:45 05/25/17 16:46 (Ambien) 10 mg HS PRN PO 05/22/17 22:15 05/22/17 22:16 Sodium Chloride 1,000 ml @ 100 mls/hr Q10H IV 05/23/17 00:00 05/23/17 10:21 Family History Noncontributory Social History Tobacco use: Denies Alcohol use: Denies Illicit drug use: Denies Physical Exam Vital Signs Vital Signs Date Time Temp Pulse Resp B/P (MAP) Pulse Ox O2 Delivery O2 Flow Rate FiO2 05/23/17 12:00 98.5 71 16 117/74 (88) 98 05/23/17 08:00 98.3 60 19 123/60 (81) 97 05/23/17 05:02 97.6 63 20 136/67 (90) 97 05/23/17 00:39 97.7 64 20 109/56 (73) 96 05/22/17 22:19 69 109/56 (73) 05/22/17 20:24 98.4 72 18 102/50 (67) 97 05/22/17 15:33 97.9 57 20 102/53 (69) 99 Physical Exam GENERAL: Patient is a well-nourished, well-developed male, awake and alert, not in respiratory distress. SKIN: Warm and dry. No generalized rash, no ecchymoses and no evidence of embolic lesions. HEAD: Atraumatic. Normocephalic. No temporal wasting, or tenderness. EYES: [place] conjunctiva. No petechia or hemorrhage. Pupils equal, round and reactive to light. Extraocular movements full and intact. No scleral icterus. No injection or drainage. EARS, NOSE AND THROAT: Nose without bleeding or purulent nasal discharge. No sinus tenderness. Mucous membranes pink and moist. No oral lesions noted. NECK: Trachea midline. Supple and not tender, no meningeal signs CARDIOVASCULAR: Regular rate and rhythm. No murmurs, rubs or gallops heard RESPIRATORY: Clear to auscultation. Breath sounds equal bilaterally. No rales , wheezing or rhonchi ABDOMEN: Soft, non-tender, nondistended. Bowel sounds present and normoactive. No guarding. No rebound. No organomegaly. EXTREMITIES: No clubbing, cyanosis. His RLE is slightly larger compared to his LLE. Both legs and feet have brownish discoloration. The 3rd toe is swollen at tip, with what looks like a superficial ulcer at the tip, with reddish drainage. No odor. There is erythema at the tip of that toe, which is already resolving. Both feet warm, could not feel pulse at R DP. Has scar on R knee. No joint effusion, has good ROM. No calf tenderness. Well perfused and warm. NEUROLOGICAL: Awake and alert. Cranial nerves grossly intact. Motor grossly within normal limits. PSYCHIATRIC: Normal affect, calm and cooperative. LINE: No evidence of infection Laboratory Laboratory Tests Test 05/23/17 08:35 Blood Urea Nitrogen 17 Creatinine 1.17 Random Glucose 87 Calcium Level 8.2 Sodium Level 143 Potassium Level 3.8 Chloride Level 110 Carbon Dioxide Level 27.0 Anion Gap 6 Estimat Glomerular Filtration Rate 61 Date/Time Source Procedure Growth Status 05/23/17 02:00 Wound Foot Gram Stain Pending Received 05/23/17 02:00 Wound Foot Wound Culture Pending Received Result Diagram: 05/22/17 0508 05/23/17 0835 Imaging RADIOLOGY STUDIES/FILMS REVIEWED Last Impressions Foot X-Ray 05/21/17 0000 Signed Impressions: Service Date/Time: Sunday, May 21, 2017 16:58 - CONCLUSION: 1. Soft tissue swelling involving the right third digit distally as well as erosive changes involving the third distal phalangeal tuft. If there is strong clinical concern for osteomyelitis, an MRI with contrast would be more sensitive in this patient. 2. Tiny foreign body within the soft tissues of the heel which may result in a tiny broken needle. Rah David MD Foot MRI 05/21/17 0000 Signed Impressions: Service Date/Time: Sunday, May 21, 2017 22:55 - CONCLUSION: 1. Cellulitis of the third digit which does extend to the periosteum of the distal phalanx but no definite osteomyelitis. Jason Echeverria MD Assessment and Plan Assessment and Plan IMPRESSION Cellulitis R 3rd toe with callus, and on and off ulcer - ulcer looks superficial and no evidence of osteo on MRI; ESR only 17 Hx DVT CKD RECOMMENDATION Continue Vanco and Zosyn for now Follow wound C/S Will likely be able to use oral Abx when he gets D/C Wound care He is getting work-up for PVD Monitor progress I will follow along with you Thank you for this consultation Discussed Condition With Explained plan to patient and Rosie Cortés MD May 23, 2017 14:17
[2017-05-23 16:00] VITALS: BP 107/51; PULSE 55; RESP 18; TEMP 98.2; O2SAT 97
[2017-05-23] MEDS: VANCOMYCIN 1,500 MG/NS 500 ML IV SCH ×2 (18:31)
[2017-05-23 20:00] VITALS: BP 132/57; PULSE 61; RESP 18; TEMP 98; O2SAT 98
[2017-05-23] MEDS: POTASSIUM CHLORIDE 10 MEQ CONTROLLED RELEASE TAB PO SCH (20:25)
[2017-05-23] MEDS: ATORVASTATIN 10 MG TAB PO SCH (20:25)
[2017-05-23] MEDS: ZOLPIDEM TARTRATE 10 MG TAB PO PRN (20:27)
--- NOTE | 2017-05-23 22:08 | HHI.PR ---
Subjective Remarks Patient seen bedside with present. Patient states he has limited pain. Objective Vital Signs Date Time Temp Pulse Resp B/P (MAP) Pulse Ox O2 Delivery O2 Flow Rate FiO2 05/23/17 20:00 98.0 61 18 132/57 (82) 98 05/23/17 16:00 98.2 55 18 107/51 (69) 97 05/23/17 12:00 98.5 71 16 117/74 (88) 98 05/23/17 08:00 98.3 60 19 123/60 (81) 97 05/23/17 05:02 97.6 63 20 136/67 (90) 97 05/23/17 00:39 97.7 64 20 109/56 (73) 96 05/22/17 22:19 69 109/56 (73) I/O 05/22/17 05/22/17 05/22/17 05/23/17 05/23/17 05/23/17 07:00 15:00 23:00 07:00 15:00 23:00 Intake Total 312 ml 50 ml 50 ml 1000 ml Output Total 120 ml 400 ml Balance 312 ml 50 ml -70 ml 600 ml Intake IV Total 312 ml 50 ml 50 ml 1000 ml Output Urine Total 120 ml 400 ml # Voids 1 # Bowel Movements 1 Result Diagram: 05/22/17 0508 05/23/17 0835 Imaging Last Impressions Foot X-Ray 05/21/17 0000 Signed Impressions: Service Date/Time: Sunday, May 21, 2017 16:58 - CONCLUSION: 1. Soft tissue swelling involving the right third digit distally as well as erosive changes involving the third distal phalangeal tuft. If there is strong clinical concern for osteomyelitis, an MRI with contrast would be more sensitive in this patient. 2. Tiny foreign body within the soft tissues of the heel which may result in a tiny broken needle. Rah David MD Foot MRI 05/21/17 0000 Signed Impressions: Service Date/Time: Sunday, May 21, 2017 22:55 - CONCLUSION: 1. Cellulitis of the third digit which does extend to the periosteum of the distal phalanx but no definite osteomyelitis. Jason Echeverria MD Other Results Microbiology Date/Time Source Procedure Growth Status 05/23/17 02:00 Wound Foot Gram Stain - Final Resulted 05/23/17 02:00 Wound Foot Wound Culture Pending Resulted Objective Remarks Dressing clean, dry and intact. Improvement noted to right third digit cellulitis and edema. Bulbous appearance persists. Medications and IVs Current Medications Medications (Trade) Dose Ordered Sig/Humble Route Start Time Stop Time Status Last Admin (NS Flush) 2 ml UNSCH PRN IV FLUSH 05/22/17 00:00 (NS Flush) 2 ml BID IV FLUSH 05/22/17 09:00 05/22/17 14:59 (Tylenol) 650 mg Q4H PRN PO 05/22/17 00:00 (Zofran Inj) 4 mg Q6H PRN IVP 05/22/17 00:00 (Narcan Inj) 0.4 mg UNSCH PRN IV PUSH 05/22/17 00:00 (Yael-Colace) 1 tab BID PO 05/22/17 09:00 05/23/17 20:25 (Milk Of Magnesia Liq) 30 ml Q12H PRN PO 05/22/17 00:00 (Senokot) 17.2 mg Q12H PRN PO 05/22/17 00:00 (Dulcolax Supp) 10 mg DAILY PRN RECTAL 05/22/17 00:00 (Lactulose Liq) 30 ml DAILY PRN PO 05/22/17 00:00 Pharmacy Profile Note 0 ml @ 0 mls/hr UNSCH OTHER 05/22/17 00:00 Piperacillin Sod/ Tazobactam Sod 50 ml @ 100 mls/hr Q6H IV 05/22/17 03:00 05/23/17 20:24 (Morphine Inj) 2 mg Q3H PRN IV PUSH 05/22/17 01:15 05/23/17 20:24 (Lipitor) 5 mg HS PO 05/22/17 21:00 05/23/17 20:25 (Cardura) 2 mg DAILY PO 05/22/17 09:00 05/22/17 11:09 (Lasix) 20 mg BID PO 05/22/17 09:00 05/23/17 20:25 (Neurontin) 100 mg TID PO 05/22/17 09:00 05/23/17 18:31 (Plaquenil) 200 mg BID PO 05/22/17 09:00 05/23/17 20:25 (KCl) 10 meq HS PO 05/22/17 21:00 05/23/17 20:25 (Zebeta) 1.25 mg DAILY PO 05/22/17 09:00 05/22/17 11:09 (predniSONE LIQ) 1.25 mg BID PO 05/22/17 09:00 05/23/17 20:25 (Pill Splitter) 1 ea UNSCH PRN OTHER 05/22/17 02:00 Vancomycin HCl 1500 mg/Sodium Chloride 515 ml @ 257.5 mls/ hr Q24H IV 05/22/17 17:00 05/23/17 18:31 Miscellaneous Information SPECIFIC LAB TO BE DRAWN:VANCOMYCIN TROUGH DATE TO... ONCE ONCE .XX 05/25/17 16:45 05/25/17 16:46 (Ambien) 10 mg HS PRN PO 05/22/17 22:15 05/23/17 20:27 Sodium Chloride 1,000 ml @ 100 mls/hr Q10H IV 05/23/17 00:00 05/23/17 10:21 Assessment and Plan Assessment and Plan 77-year-old male with right third digit infection Patient examined and evaluated with all questions answered X-ray, MRI, vascular studies reviewed with patient CTA ordered pending Will await cultures - NG Patient at this time is refusing amputation and would like to move forward with antibiotics for right third digit I believe this is reasonable as MRI did not show osteomyelitis, however due to appearance of toe and serous drainage, I do feel there is some degree of possible bone infection Would appreciate vascular and infectious disease consult for recommendations Dressings to consist of wound gel and dry sterile dressing to right third digit Weight-bearing as tolerated in surgical shoe Pamela Fonseca DPM May 23, 2017 22:08
[2017-05-24 00:05] VITALS: BP 105/59; PULSE 60; RESP 18; TEMP 97.6; O2SAT 94
[2017-05-24] MEDS: PIPERACIL-TAZO 3.375 GM PREMIX 50 ML IV SCH ×4 (02:36→21:31)
[2017-05-24] MEDS: MORPHINE SULFATE 4 MG/ML INJ IV PUSH PRN ×5 (02:40→21:28)
[2017-05-24 04:51] VITALS: BP 116/55; PULSE 61; RESP 18; TEMP 97.8; O2SAT 98
[2017-05-24] MEDS: SODIUM CHLOR 0.9% 1000 ML INJ 1,000 ML IV SCH (06:41)
[2017-05-24 08:00] VITALS: BP 130/93; PULSE 57; RESP 18; TEMP 97.9; O2SAT 98
[2017-05-24] MEDS: DOCUSATE SODIUM 50 MG/SENNA 8.6 MG TAB PO SCH ×2 (08:25→21:00)
[2017-05-24] MEDS: DOXAZOSIN MESYLATE 2 MG TAB PO SCH (08:26)
[2017-05-24] MEDS: BISOPROLOL FUMARATE 5 MG TAB PO SCH (08:26)
[2017-05-24] MEDS: predniSONE 5 MG/5 ML CUP PO SCH (08:27)
[2017-05-24] MEDS: GABAPENTIN 100 MG CAP PO SCH ×3 (08:28→16:07)
[2017-05-24] MEDS: FUROSEMIDE 20 MG TAB PO SCH ×2 (08:28→21:28)
[2017-05-24] MEDS: HYDROXYCHLOROQUINE SULFATE 200 MG TAB PO SCH ×2 (08:28→21:28)
[2017-05-24] MEDS: SODIUM CHLORIDE 0.9% FLUSH 10 ML FLUSH IV FLUSH SCH ×2 (08:29→21:31)
--- NOTE | 2017-05-24 11:25 | HHI.PR ---
Subjective Remarks Follow up cellulitis right 3rd toe 05/22/17-patient seen and examined and he is currently NPO pending further evaluation from Podiatry. Afebrile and denies any toe pain. by the bedside 05/23/17-patient seen and examined, states he is still having toe pain, Patient declined toe amputation. Afebrile 05/24/17-patient seen and examined, Afebrile, complains of some throbbing pain to his left foot. Unable to perform CT aorta with runoff d/t iodinated contrast allergy. Requesting his fentanyl to be restarted Objective Vitals Vital Signs Date Time Temp Pulse Resp B/P (MAP) Pulse Ox O2 Delivery O2 Flow Rate FiO2 05/24/17 08:00 97.9 57 18 130/93 (105) 98 05/24/17 04:51 97.8 61 18 116/55 (75) 98 05/24/17 00:05 97.6 60 18 105/59 (74) 94 05/23/17 20:00 98.0 61 18 132/57 (82) 98 05/23/17 16:00 98.2 55 18 107/51 (69) 97 05/23/17 12:00 98.5 71 16 117/74 (88) 98 I/O 05/23/17 05/23/17 05/23/17 05/24/17 05/24/17 05/24/17 07:00 15:00 23:00 07:00 15:00 23:00 Intake Total 1000 ml 565 ml 530 ml Output Total 400 ml 600 ml Balance 600 ml 565 ml -70 ml Intake Oral 480 ml IV Total 1000 ml 565 ml 50 ml Output Urine Total 400 ml 600 ml # Voids 1 # Bowel Movements 1 Result Diagram: 05/22/17 0508 05/23/17 0835 Imaging Last Impressions Foot X-Ray 05/21/17 0000 Signed Impressions: Service Date/Time: Sunday, May 21, 2017 16:58 - CONCLUSION: 1. Soft tissue swelling involving the right third digit distally as well as erosive changes involving the third distal phalangeal tuft. If there is strong clinical concern for osteomyelitis, an MRI with contrast would be more sensitive in this patient. 2. Tiny foreign body within the soft tissues of the heel which may result in a tiny broken needle. Rah David MD Foot MRI 05/21/17 0000 Signed Impressions: Service Date/Time: Sunday, May 21, 2017 22:55 - CONCLUSION: 1. Cellulitis of the third digit which does extend to the periosteum of the distal phalanx but no definite osteomyelitis. Jason Echeverria MD Objective Remarks GENERAL: NAD SKIN: Warm and dry. erythema surrounding right 3rd toe HEAD: Normocephalic. EYES: No scleral icterus. No injection or drainage. NECK: Supple, trachea midline. No JVD or lymphadenopathy. CARDIOVASCULAR: Regular rate and rhythm without murmurs, gallops, or rubs. RESPIRATORY: Breath sounds equal bilaterally. No accessory muscle use. GASTROINTESTINAL: Abdomen soft, non-tender, nondistended. MUSCULOSKELETAL: No cyanosis, or edema. BACK: Nontender without obvious deformity. No CVA tenderness. A/P Problem List: (1) Chronic kidney disease ICD Code: N18.9 - Chronic kidney disease, unspecified Status: Chronic (2) Cellulitis ICD Code: L03.90 - Cellulitis, unspecified Status: Acute (3) Peripheral neuropathy ICD Code: G62.9 - Polyneuropathy, unspecified Status: Chronic (4) HTN (hypertension) ICD Code: I10 - Essential (primary) hypertension Status: Chronic Assessment and Plan 77 year-old man with Cellulitis, right third digit -Foot MRI reviewed and shows cellulitis of the third digit which does extend to the distal phalanx but no definite osteomyelitis -Foot MRI without any evidence of osteomyelitis -IV antibiotics Zosyn and vancomycin -Pain management with IV morphine -Appreciate input from Podiatry however patient declined any amputation until wound culture -Appreciate input from Infectious disease specialist pending wound culture report Peripheral neuropathy chronic/PAD -Arterial Doppler WALTER reviewed ; however unable to perform CTA aorta with runoff d/t iodinated contrast allergy Chronic kidney disease, stage III -Monitor Bun and creatinine -Avoid nephrotoxins -Continue home medications Hypokalemia improved s/p electrolyte improvement Hypertension, chronic -Continue home medications DVT prophylaxis: SCDs, Problem Qualifiers (1) Chronic kidney disease: Qualified Codes: N18.3 - Chronic kidney disease, stage 3 (moderate) (2) Cellulitis: Qualified Codes: L03.031 - Cellulitis of right toe Jason Ramos MD May 24, 2017 11:25
[2017-05-24] MEDS ORDERED: fentaNYL 75 MCG/HR PATCH T-DERMAL SCH (11:30)
[2017-05-24 12:00] VITALS: BP 117/64; PULSE 58; RESP 18; TEMP 98.1; O2SAT 97
[2017-05-24 16:00] VITALS: BP 132/63; PULSE 57; RESP 18; TEMP 98.2; O2SAT 96
[2017-05-24] MEDS: VANCOMYCIN 1,500 MG/NS 500 ML IV SCH ×2 (16:07)
--- NOTE | 2017-05-24 19:52 | PD.VS.CON ---
History of Present Illness Chief Complaint: PAD, osteo R 3rd toe Consult Requested by: Dr. Fonseca, podiatry History of Present Illness 77 yo male with R 3rd toe cellulitis and possible osteo. MRI negative. Asked to eval because of mild PAD seen on PVRs. Pt notes wound present for days. + chills but no fevers. Past/Family/Social History Past Medical History HTN DVTs anxiety neuropathy glomerulonephritis diverticulitis Past Surgical History spine surgery IVC filter ostomy/reversal Social History NC Family History NC Home Medications Active Scripts Potassium Chloride ER (Potassium Chloride ER) 10 Meq Tab, 10 MEQ PO HS for Electrolyte Replacement, #30 TAB 0 Refills Prov:Tomasa Bueno TOLL LINEMAN 05/22/17 Furosemide (Furosemide) 20 Mg Tab, 20 MG PO BID for Edema, #30 TAB 0 Refills Prov:Tomasa Bueno TOLL LINEMAN 05/22/17 Albuterol 18 GM Inh (Ventolin Hfa 18 GM Inh) 90 Mcg/Act Aer, 2 PUFF INH DAILY Y for SHORTNESS OF BREATH, #3 INHALER 0 Refills Prov:Andre Mccormick DO 03/15/17 Linezolid (Zyvox) 600 Mg Tab, 600 MG PO Q12H for Infection for 8 Days, #16 TAB 0 Refills Prov:Christelle Bingham MD 03/14/17 Reported Medications Doxazosin (Cardura) 2 Mg Tab, 2 MG PO DAILY, #30 TAB 0 Refills 05/21/17 Hydroxychloroquine (Plaquenil) 200 Mg Tab, 200 MG PO BID, #60 TAB 0 Refills Take with food 03/06/17 Prednisone (Prednisone) 2.5 Mg Tab, 1.25 MG PO BID, TAB 0 Refills 01/15/17 Atorvastatin (Atorvastatin) 10 Mg Tab, 5 MG PO HS for Cholesterol Management, # 30 TAB 0 Refills 01/15/17 Calcitriol (Calcitriol) 0.25 Mcg Cap, 0.25 MCG PO DIRECTED for Calcium Supplement, #30 CAP 0 Refills sunday, sunday, sunday and sunday01/15/17 Zolpidem (Ambien) 10 Mg Tab, 10 MG PO HS Y for INSOMNIA, TAB 0 Refills 01/15/17 Oxycodone-Acetaminophen (Oxycodone-Acetaminophen) 5-325 mg Tab, 1 TAB PO Q6H Y for PAIN, TAB 0 Refills 01/15/17 Multiple Vitamin (Multiple Vitamin) 1 Tab, 1 TAB PO DAILY for Nutritional Supplement, TAB 0 Refills 01/15/17 Gabapentin (Gabapentin) 100 Mg Cap, 100 MG PO TID, #90 CAP 0 Refills 01/15/17 Apixaban (Eliquis) 2.5 Mg Tab, 2.5 MG PO BID for Blood Clot Prevention, TAB 0 Refills 01/15/17 Fentanyl Patch 72 HR (Fentanyl Patch 72 HR) 75 Mcg/Hr Patch, 75 MCG T-DERMAL Q72H for Pain Management, #10 PATCH 0 Refills Remove old patch when new one placed. 01/15/17 Ergocalciferol (Vitamin D2) 2,000 Unit Tab, 34741 UNITS PO every 2 weeks for Nutritional Supplement, TAB 0 Refills 01/15/17 Calcium Carbonate-Cholecalciferol (Calcium 600 with Vitamin D) 600-400 mg-Unit Tab, 1 TAB PO BID for Calcium Supplement, TAB 0 Refills 01/15/17 Bisoprolol-Hydrochlorothiazide (Ziac) 2.5-6.25 Mg Tab, 0.05 TAB PO DAILY for Blood Pressure Management, #30 TAB 0 Refills 01/15/17 Alprazolam (Alprazolam) 0.5 Mg Tab, 0.5 MG PO DIRECTED Y for ANXIETY, TAB 0 Refills 01/15/17 Hydrocodone-Acetaminophen (Hydrocodone-Acetaminophen) 5-300 Mg Tab, 1 TAB PO Q6H Y for PAIN, TAB 0 Refills 01/15/17 Coded Allergies: Iodinated Contrast- Oral and IV Dye (Verified Allergy, Severe, 05/21/17) ALLERGY DURING HEART CATH YEARS AGO PER PATIENT amitriptyline (Unverified Allergy, Severe, 05/21/17) diatrizoate meglumine (Unverified Allergy, Severe, Hypotension, 05/21/17) iodixanol (Unverified Allergy, Severe, Hypotension, 05/21/17) iohexol (Unverified Allergy, Severe, Hypotension, 05/21/17) pentazocine (Unverified Allergy, Severe, BRADYCARDIA, DECREASE NEURO STATUS, 05/21/17) pregabalin (Unverified Allergy, Severe, 05/21/17) warfarin (Unverified Allergy, Severe, 05/21/17) Review of Systems Constitutional: COMPLAINS OF: Chills Neurologic: COMPLAINS OF: Abnormal gait Physical Exam Vitals/I&O Date Time Temp Pulse Resp B/P (MAP) Pulse Ox O2 Delivery O2 Flow Rate FiO2 05/24/17 16:00 98.2 57 18 132/63 (86) 96 05/24/17 12:00 98.1 58 18 117/64 (81) 97 05/24/17 08:00 97.9 57 18 130/93 (105) 98 05/24/17 04:51 97.8 61 18 116/55 (75) 98 05/24/17 00:05 97.6 60 18 105/59 (74) 94 05/23/17 20:00 98.0 61 18 132/57 (82) 98 05/24/17 05/24/17 05/24/17 07:00 15:00 23:00 Intake Total 530 ml 535 ml Output Total 600 ml Balance -70 ml 535 ml Neuro: alert, very pleasant HEENT: NC/AT Neck: no JVD Heart: reg rate Lungs: nonlabored breathing Vascular: palpable R PT, 2+ Extremities: skin of lower legs c/w venous stasis changed but no alteration in skin integrity Date/Time Source Procedure Growth Status 05/23/17 02:00 Wound Foot Gram Stain - Final Resulted 05/23/17 02:00 Wound Culture - Preliminary S. Aureus Mrsa Resulted Assessment and Plan Plan I think he has cellulitis and may not have osteo by MRI. He has palpable pulses and should be able to heal any wound care/podiatric procedure coordinated by Dr. Fonseca. No further testing needed. The patient has my numbers if anything changes or if he needs anything. Rah Montana MD FACS RPVI hand candle dipper [facility] - Heart and Vascular Surgery at [facility] [phone] Rah Montana MD May 24, 2017 19:52
[2017-05-24 20:00] VITALS: BP 129/63; PULSE 74; RESP 18; TEMP 97.8; O2SAT 97
--- NOTE | 2017-05-24 20:21 | HHI.PR ---
Subjective Remarks Patient seen bedside with present. Patient states he has limited pain. He is aware his culture is growing MRSA. Objective Vital Signs Date Time Temp Pulse Resp B/P (MAP) Pulse Ox O2 Delivery O2 Flow Rate FiO2 05/24/17 16:00 98.2 57 18 132/63 (86) 96 05/24/17 12:00 98.1 58 18 117/64 (81) 97 05/24/17 08:00 97.9 57 18 130/93 (105) 98 05/24/17 04:51 97.8 61 18 116/55 (75) 98 05/24/17 00:05 97.6 60 18 105/59 (74) 94 I/O 05/23/17 05/23/17 05/23/17 05/24/17 05/24/17 05/24/17 07:00 15:00 23:00 07:00 15:00 23:00 Intake Total 1000 ml 565 ml 530 ml 535 ml Output Total 400 ml 600 ml Balance 600 ml 565 ml -70 ml 535 ml Intake Oral 480 ml IV Total 1000 ml 565 ml 50 ml 535 ml Output Urine Total 400 ml 600 ml # Voids 1 # Bowel Movements 1 Result Diagram: 05/22/17 0508 05/23/17 0835 Imaging Last Impressions Foot X-Ray 05/21/17 0000 Signed Impressions: Service Date/Time: Sunday, May 21, 2017 16:58 - CONCLUSION: 1. Soft tissue swelling involving the right third digit distally as well as erosive changes involving the third distal phalangeal tuft. If there is strong clinical concern for osteomyelitis, an MRI with contrast would be more sensitive in this patient. 2. Tiny foreign body within the soft tissues of the heel which may result in a tiny broken needle. Rah David MD Foot MRI 05/21/17 0000 Signed Impressions: Service Date/Time: Sunday, May 21, 2017 22:55 - CONCLUSION: 1. Cellulitis of the third digit which does extend to the periosteum of the distal phalanx but no definite osteomyelitis. Jason Echeverria MD Other Results Microbiology Date/Time Source Procedure Growth Status 05/23/17 02:00 Wound Foot Gram Stain - Final Resulted 05/23/17 02:00 Wound Culture - Preliminary S. Aureus Mrsa Resulted Objective Remarks Dressing clean, dry and intact. Improvement noted to right third digit cellulitis and edema. Bulbous appearance persists. Improved erythema noted. Healing ulceration noted to distal aspect of right third digit with epithelization present. Medications and IVs Current Medications Medications (Trade) Dose Ordered Sig/Humble Route Start Time Stop Time Status Last Admin (NS Flush) 2 ml UNSCH PRN IV FLUSH 05/22/17 00:00 (NS Flush) 2 ml BID IV FLUSH 05/22/17 09:00 05/22/17 14:59 (Tylenol) 650 mg Q4H PRN PO 05/22/17 00:00 (Zofran Inj) 4 mg Q6H PRN IVP 05/22/17 00:00 (Narcan Inj) 0.4 mg UNSCH PRN IV PUSH 05/22/17 00:00 (Yael-Colace) 1 tab BID PO 05/22/17 09:00 05/23/17 20:25 (Milk Of Magnesia Liq) 30 ml Q12H PRN PO 05/22/17 00:00 (Senokot) 17.2 mg Q12H PRN PO 05/22/17 00:00 (Dulcolax Supp) 10 mg DAILY PRN RECTAL 05/22/17 00:00 (Lactulose Liq) 30 ml DAILY PRN PO 05/22/17 00:00 Pharmacy Profile Note 0 ml @ 0 mls/hr UNSCH OTHER 05/22/17 00:00 Piperacillin Sod/ Tazobactam Sod 50 ml @ 100 mls/hr Q6H IV 05/22/17 03:00 05/24/17 15:09 (Morphine Inj) 2 mg Q3H PRN IV PUSH 05/22/17 01:15 05/24/17 16:08 (Lipitor) 5 mg HS PO 05/22/17 21:00 05/23/17 20:25 (Cardura) 2 mg DAILY PO 05/22/17 09:00 05/24/17 08:26 (Lasix) 20 mg BID PO 05/22/17 09:00 05/24/17 08:28 (Neurontin) 100 mg TID PO 05/22/17 09:00 05/24/17 16:07 (Plaquenil) 200 mg BID PO 05/22/17 09:00 05/24/17 08:28 (KCl) 10 meq HS PO 05/22/17 21:00 05/23/17 20:25 (Zebeta) 1.25 mg DAILY PO 05/22/17 09:00 05/24/17 08:26 (Pill Splitter) 1 ea UNSCH PRN OTHER 05/22/17 02:00 Vancomycin HCl 1500 mg/Sodium Chloride 515 ml @ 257.5 mls/ hr Q24H IV 05/22/17 17:00 05/24/17 16:07 Miscellaneous Information SPECIFIC LAB TO BE DRAWN:VANCOMYCIN TROUGH DATE TO... ONCE ONCE .XX 05/25/17 16:45 05/25/17 16:46 (Ambien) 10 mg HS PRN PO 05/22/17 22:15 05/23/17 20:27 (Duragesic 75 Mcg Patch.72 Hr) 1 patch Q3D T-DERMAL 05/24/17 11:30 05/24/17 12:52 Miscellaneous Information 1 Q3D T-DERMAL 05/27/17 11:45 (Deltasone) 1.25 mg BID PO 05/24/17 21:00 Assessment and Plan Assessment and Plan 77-year-old male with right third digit infection Patient examined and evaluated with all questions answered Appreciate vascular and infectious disease consults OK to DC per podiatry once final ID abx recommendations made Patient to follow up in office within 1 week of discharge Dressings to consist of wound gel and dry sterile dressing to right third digit Weight-bearing as tolerated in surgical shoe Pamela Fonseca DPM May 24, 2017 20:21
[2017-05-24] MEDS: ZOLPIDEM TARTRATE 10 MG TAB PO PRN ×2 (21:28→22:52)
[2017-05-24] MEDS: POTASSIUM CHLORIDE 10 MEQ CONTROLLED RELEASE TAB PO SCH (21:28)
[2017-05-24] MEDS: ATORVASTATIN 10 MG TAB PO SCH (21:29)
[2017-05-24] MEDS: predniSONE 1 MG TAB PO SCH (21:45)
[2017-05-25] VITALS (7 sets, daily range): BP systolic 99–145; BP diastolic 55–79; PULSE 60–82; RESP 18–20; TEMP 97.2–98.1; O2SAT 95–97
[2017-05-25] MEDS: PIPERACIL-TAZO 3.375 GM PREMIX 50 ML IV SCH ×2 (02:24→09:31)
[2017-05-25] MEDS: SODIUM CHLORIDE 0.9% FLUSH 10 ML FLUSH IV FLUSH PRN (02:54)
[2017-05-25] MEDS: MORPHINE SULFATE 4 MG/ML INJ IV PUSH PRN ×5 (02:54→21:57)
[2017-05-25 08:38] LABS: CREATININE 1.02 MG/DL (0.60-1.30)
[2017-05-25] MEDS: predniSONE 1 MG TAB PO SCH ×2 (09:28→21:55)
[2017-05-25] MEDS: DOXAZOSIN MESYLATE 2 MG TAB PO SCH (09:29)
[2017-05-25] MEDS: BISOPROLOL FUMARATE 5 MG TAB PO SCH (09:30)
[2017-05-25] MEDS: HYDROXYCHLOROQUINE SULFATE 200 MG TAB PO SCH ×2 (09:30→21:56)
[2017-05-25] MEDS: GABAPENTIN 100 MG CAP PO SCH ×3 (09:30→18:41)
[2017-05-25] MEDS: DOCUSATE SODIUM 50 MG/SENNA 8.6 MG TAB PO SCH ×2 (09:31→21:00)
[2017-05-25] MEDS: FUROSEMIDE 20 MG TAB PO SCH ×2 (09:31→21:55)
[2017-05-25] MEDS: SODIUM CHLORIDE 0.9% FLUSH 10 ML FLUSH IV FLUSH SCH ×2 (09:31→21:57)
[2017-05-25] MEDS ORDERED: ALPRAZolam 0.5 MG TAB PO PRN (09:45)
--- NOTE | 2017-05-25 11:10 | HHI.PR ---
Subjective Remarks Follow up cellulitis right 3rd toe 05/22/17-patient seen and examined and he is currently NPO pending further evaluation from Podiatry. Afebrile and denies any toe pain. by the bedside 05/23/17-patient seen and examined, states he is still having toe pain, Patient declined toe amputation. Afebrile 05/24/17-patient seen and examined, Afebrile, complains of some throbbing pain to his left foot. Unable to perform CT aorta with runoff d/t iodinated contrast allergy. Requesting his fentanyl to be restarted 05/25/17-patient seen and examined; no complaint and afebrile. Clear by Podiatry as well as Vascular for discharge. Patient states he is claustrophobic therefore he would not go for any HBO evaluation Objective Vitals Vital Signs Date Time Temp Pulse Resp B/P (MAP) Pulse Ox O2 Delivery O2 Flow Rate FiO2 05/25/17 07:47 97.4 71 19 132/69 (90) 96 05/25/17 04:00 98.0 82 18 145/79 (101) 05/25/17 00:00 98.1 82 20 127/71 (89) 95 05/24/17 20:00 97.8 74 18 129/63 (85) 97 05/24/17 16:00 98.2 57 18 132/63 (86) 96 05/24/17 12:00 98.1 58 18 117/64 (81) 97 I/O 05/24/17 05/24/17 05/24/17 05/25/17 05/25/17 05/25/17 06:59 14:59 22:59 06:59 14:59 22:59 Intake Total 530 ml 535 ml Output Total 600 ml Balance -70 ml 535 ml Intake Oral 480 ml IV Total 50 ml 535 ml Output Urine Total 600 ml # Voids 2 # Bowel Movements 1 Result Diagram: 05/22/17 0508 05/25/17 0718 Imaging Last Impressions Foot X-Ray 05/21/17 0000 Signed Impressions: Service Date/Time: Sunday, May 21, 2017 16:58 - CONCLUSION: 1. Soft tissue swelling involving the right third digit distally as well as erosive changes involving the third distal phalangeal tuft. If there is strong clinical concern for osteomyelitis, an MRI with contrast would be more sensitive in this patient. 2. Tiny foreign body within the soft tissues of the heel which may result in a tiny broken needle. Rah David MD Foot MRI 05/21/17 0000 Signed Impressions: Service Date/Time: Sunday, May 21, 2017 22:55 - CONCLUSION: 1. Cellulitis of the third digit which does extend to the periosteum of the distal phalanx but no definite osteomyelitis. Jason Echeverria MD Objective Remarks GENERAL: NAD SKIN: Warm and dry. erythema surrounding right 3rd toe HEAD: Normocephalic. EYES: No scleral icterus. No injection or drainage. NECK: Supple, trachea midline. No JVD or lymphadenopathy. CARDIOVASCULAR: Regular rate and rhythm without murmurs, gallops, or rubs. RESPIRATORY: Breath sounds equal bilaterally. No accessory muscle use. GASTROINTESTINAL: Abdomen soft, non-tender, nondistended. MUSCULOSKELETAL: No cyanosis, or edema. BACK: Nontender without obvious deformity. No CVA tenderness. Procedures none A/P Problem List: (1) Chronic kidney disease ICD Code: N18.9 - Chronic kidney disease, unspecified Status: Chronic (2) Cellulitis ICD Code: L03.90 - Cellulitis, unspecified Status: Acute (3) Peripheral neuropathy ICD Code: G62.9 - Polyneuropathy, unspecified Status: Chronic (4) HTN (hypertension) ICD Code: I10 - Essential (primary) hypertension Status: Chronic Assessment and Plan 77 year-old man with Cellulitis, right third digit -Foot MRI reviewed and shows cellulitis of the third digit which does extend to the distal phalanx but no definite osteomyelitis -Foot MRI without any evidence of osteomyelitis -IV antibiotics Zosyn and vancomycin -Pain management with IV morphine -Appreciate input from Podiatry -Appreciate input from Infectious disease specialist and wound +MRSA Peripheral neuropathy chronic/PAD -Arterial Doppler WALTER reviewed ; however unable to perform CTA aorta with runoff d/t iodinated contrast allergy -Appreciate input from Vascular surgery Chronic kidney disease, stage III -Monitor Bun and creatinine -Avoid nephrotoxins -Continue home medications Hypokalemia improved s/p electrolyte improvement Hypertension, chronic -Continue home medications DVT prophylaxis: SCDs, Problem Qualifiers (1) Chronic kidney disease: Qualified Codes: N18.3 - Chronic kidney disease, stage 3 (moderate) (2) Cellulitis: Qualified Codes: L03.031 - Cellulitis of right toe Jason Ramos MD May 25, 2017 11:10
[2017-05-25] MEDS: APIXABAN 2.5 MG TABLET PO SCH ×2 (11:55→21:55)
--- NOTE | 2017-05-25 12:32 | HHI.DS ---
Discharge Summary Admission Date May 21, 2017 at 22:23 Discharge Date: May 25, 2017 Admitting Diagnosis osteomyelitis (1) Chronic kidney disease ICD Code: N18.9 - Chronic kidney disease, unspecified Status: Chronic (2) Cellulitis ICD Code: L03.90 - Cellulitis, unspecified Status: Acute (3) Peripheral neuropathy ICD Code: G62.9 - Polyneuropathy, unspecified Status: Chronic (4) HTN (hypertension) ICD Code: I10 - Essential (primary) hypertension Status: Chronic Procedures none Brief History - From Admission 77 y/o male with CKD stage 3, kidney stones, chronic uti's, HTN, HLD, DVTs on Eliquis, neuropathy presented to the ED with complaints of a ulcer to right 3rd toe. Patient states he has had this ulcer for many years and it heals over time and then opens again. He was seen today his verify rep who drained it in the office and then sent the patient to the emergency department to rule out osteomyelitis. Patient states when the verify rep drained at the office pus was drained. He denies any fevers at home but does complain of chills. He denies any associated chest pain, shortness of breath or dizziness. He does complain of some light tenderness to the right toe, with no radiation. He does state due to the neuropathy does not feel much pain. is at the bedside and all questions were answered. Dr. Cristina urologist Dr. Alethea Vazquez [employer] Specialist Dr. Sanchez Bank Representative Dr. Evans Hemotologist CBC/BMP: 05/22/17 0508 05/25/17 0718 Significant Findings Laboratory Tests Test 05/23/17 08:35 05/25/17 07:18 Calcium Level 8.2 MG/DL (8.5-10.1) Chloride Level 110 MEQ/L (98-107) Estimat Glomerular Filtration Rate 61 ML/MIN (>89) 71 ML/MIN (>89) Imaging Last Impressions Foot X-Ray 05/21/17 0000 Signed Impressions: Service Date/Time: Sunday, May 21, 2017 16:58 - CONCLUSION: 1. Soft tissue swelling involving the right third digit distally as well as erosive changes involving the third distal phalangeal tuft. If there is strong clinical concern for osteomyelitis, an MRI with contrast would be more sensitive in this patient. 2. Tiny foreign body within the soft tissues of the heel which may result in a tiny broken needle. Rah David MD Foot MRI 05/21/17 0000 Signed Impressions: Service Date/Time: Sunday, May 21, 2017 22:55 - CONCLUSION: 1. Cellulitis of the third digit which does extend to the periosteum of the distal phalanx but no definite osteomyelitis. Jason Echeverria MD PE at Discharge GENERAL: NAD SKIN: Warm and dry. erythema surrounding right 3rd toe HEAD: Normocephalic. EYES: No scleral icterus. No injection or drainage. NECK: Supple, trachea midline. No JVD or lymphadenopathy. CARDIOVASCULAR: Regular rate and rhythm without murmurs, gallops, or rubs. RESPIRATORY: Breath sounds equal bilaterally. No accessory muscle use. GASTROINTESTINAL: Abdomen soft, non-tender, nondistended. MUSCULOSKELETAL: No cyanosis, or edema. BACK: Nontender without obvious deformity. No CVA tenderness. Hospital Course While in the Hospital, patient was treated for: Cellulitis, right third digit -Foot MRI reviewed and shows cellulitis of the third digit which does extend to the distal phalanx but no definite osteomyelitis -Foot MRI without any evidence of osteomyelitis -He was treated with IV antibiotics Zosyn and vancomycin -Pain management was provided accordingly - Podiatry was consulted -Appreciate input from Infectious disease specialist and wound +MRSA Peripheral neuropathy chronic/PAD -Arterial Doppler WALTER reviewed ; however unable to perform CTA aorta with runoff d/t iodinated contrast allergy -Vascular surgery was consulted advised to continue current treatment Chronic kidney disease, stage III -Monitor Bun and creatinine -Avoid nephrotoxins -Continue home medications Hypokalemia improved s/p electrolyte improvement Hypertension, chronic He Remained normotensive on his continued home medications DVT prophylaxis: SCDs, Pt Condition on Discharge: Good Discharge Disposition: Discharge Home Discharge Time: <= 30 minutes Discharge Instructions DIET: Follow Instructions for: Heart Healthy Diet Activities you can perform: Regular-No Restrictions Follow up Referrals: PCP Follow-up - 1 Week Podiatry - 1 Week @ [facility] with Pamela Fonseca DPM Continued Medications: Albuterol 18 GM Inh (Ventolin Hfa 18 GM Inh) 90 Mcg/Act Aer 2 PUFF INH DAILY PRN for SHORTNESS OF BREATH, #3 INHALER 0 Refills Alprazolam (Alprazolam) 0.5 Mg Tab 0.5 MG PO DIRECTED PRN for ANXIETY, TAB 0 Refills Apixaban (Eliquis) 2.5 Mg Tab 2.5 MG PO BID for Blood Clot Prevention, TAB 0 Refills Atorvastatin (Atorvastatin) 10 Mg Tab 5 MG PO HS for Cholesterol Management, #30 TAB 0 Refills Bisoprolol-Hydrochlorothiazide (Ziac) 2.5-6.25 Mg Tab 0.05 TAB PO DAILY for Blood Pressure Management, #30 TAB 0 Refills Calcitriol (Calcitriol) 0.25 Mcg Cap 0.25 MCG PO DIRECTED for Calcium Supplement, #30 CAP 0 Refills sunday, sunday, sunday and sunday Calcium Carbonate-Cholecalciferol (Calcium 600 with Vitamin D) 600-400 mg-Unit Tab 1 TAB PO BID for Calcium Supplement, TAB 0 Refills Doxazosin (Cardura) 2 Mg Tab 2 MG PO DAILY, #30 TAB 0 Refills Ergocalciferol (Vitamin D2) 2,000 Unit Tab 04490 UNITS PO every 2 weeks for Nutritional Supplement, TAB 0 Refills Fentanyl Patch 72 HR (Fentanyl Patch 72 HR) 75 Mcg/Hr Patch 75 MCG T-DERMAL Q72H for Pain Management, #10 PATCH 0 Refills Remove old patch when new one placed. Furosemide (Furosemide) 20 Mg Tab 20 MG PO BID for Edema, #30 TAB 0 Refills Gabapentin (Gabapentin) 100 Mg Cap 100 MG PO TID, #90 CAP 0 Refills Hydroxychloroquine (Plaquenil) 200 Mg Tab 200 MG PO BID, #60 TAB 0 Refills Take with food Multiple Vitamin (Multiple Vitamin) 1 Tab 1 TAB PO DAILY for Nutritional Supplement, TAB 0 Refills Potassium Chloride ER (Potassium Chloride ER) 10 Meq Tab 10 MEQ PO HS for Electrolyte Replacement, #30 TAB 0 Refills Prednisone (Prednisone) 2.5 Mg Tab 1.25 MG PO BID, TAB 0 Refills Discontinued Medications: Hydrocodone-Acetaminophen (Hydrocodone-Acetaminophen) 5-300 Mg Tab 1 TAB PO Q6H PRN for PAIN, TAB 0 Refills Linezolid (Zyvox) 600 Mg Tab 600 MG PO Q12H for Infection for 8 Days, #16 TAB 0 Refills Oxycodone-Acetaminophen (Oxycodone-Acetaminophen) 5-325 mg Tab 1 TAB PO Q6H PRN for PAIN, TAB 0 Refills Zolpidem (Ambien) 10 Mg Tab 10 MG PO HS PRN for INSOMNIA, TAB 0 Refills Jason Ramos MD May 25, 2017 12:32
--- NOTE | 2017-05-25 13:12 | HHI.IDPN ---
Subjective Subjective Remarks Patient is a 77-year-old male, presented to the hospital for further evaluation of his right third toe. Patient has had a callus on that third toe for at least 5 years. He has had on and off problem with it before it would open and then it would close up. He goes to a phlebotomy manager on a regular basis, and the last time he was seen was back in April of this year, and he had shaving his callus. He didn't have any problem up until about 4 days ago when it was noted to be a little red and swollen and it had some reddish drainage. There was no odor to it. A has not neuropathy and does not really feel any pain in both feet. He went to his phlebotomy manager, and apparently a procedure was done on that toe and purulent drainage came out. He was advised to go to the hospital for further evaluation and treatment. He denies any fever or chills or sweats. He has not had any significant respiratory complaint, GI or any urinary complaint. Back in February he was hospitalized here and was found to have UTI. He had enterococcus in the urine culture. One of his blood culture came back with MRSA , and at that time it was felt that it was probably related to some cellulitis in his third toe. He received 14 days of oral Zyvox when he was discharged. Since admission he has not been febrile. His sedimentation rate is normal. CRP is elevated. MRI did not show any abscess or any osteomyelitis. Infectious disease consultation has been requested to evaluate the patient. Notes reviewed Temps ok Vascular evaluation noted D/C plans noted C/W with MRSA Antibiotics Current Medications Medications (Trade) Dose Ordered Sig/Humble Route Start Time Stop Time Status Last Admin (NS Flush) 2 ml UNSCH PRN IV FLUSH 05/22/17 00:00 05/25/17 02:54 (NS Flush) 2 ml BID IV FLUSH 05/22/17 09:00 05/25/17 09:31 (Tylenol) 650 mg Q4H PRN PO 05/22/17 00:00 (Zofran Inj) 4 mg Q6H PRN IVP 05/22/17 00:00 (Narcan Inj) 0.4 mg UNSCH PRN IV PUSH 05/22/17 00:00 (Yael-Colace) 1 tab BID PO 05/22/17 09:00 05/25/17 09:31 (Milk Of Magnesia Liq) 30 ml Q12H PRN PO 05/22/17 00:00 (Senokot) 17.2 mg Q12H PRN PO 05/22/17 00:00 (Dulcolax Supp) 10 mg DAILY PRN RECTAL 05/22/17 00:00 (Lactulose Liq) 30 ml DAILY PRN PO 05/22/17 00:00 Pharmacy Profile Note 0 ml @ 0 mls/hr UNSCH OTHER 05/22/17 00:00 Piperacillin Sod/ Tazobactam Sod 50 ml @ 100 mls/hr Q6H IV 05/22/17 03:00 05/25/17 09:31 (Morphine Inj) 2 mg Q3H PRN IV PUSH 05/22/17 01:15 05/25/17 06:25 (Lipitor) 5 mg HS PO 05/22/17 21:00 05/24/17 21:29 (Cardura) 2 mg DAILY PO 05/22/17 09:00 05/25/17 09:29 (Lasix) 20 mg BID PO 05/22/17 09:00 05/25/17 09:31 (Neurontin) 100 mg TID PO 05/22/17 09:00 05/25/17 11:55 (Plaquenil) 200 mg BID PO 05/22/17 09:00 05/25/17 09:30 (KCl) 10 meq HS PO 05/22/17 21:00 05/24/17 21:28 (Zebeta) 1.25 mg DAILY PO 05/22/17 09:00 05/25/17 09:30 (Pill Splitter) 1 ea UNSCH PRN OTHER 05/22/17 02:00 Vancomycin HCl 1500 mg/Sodium Chloride 515 ml @ 257.5 mls/ hr Q24H IV 05/22/17 17:00 05/24/17 16:07 Miscellaneous Information SPECIFIC LAB TO BE DRAWN:VANCOMYCIN TROUGH DATE TO... ONCE ONCE .XX 05/25/17 16:45 05/25/17 16:46 (Ambien) 10 mg HS PRN PO 05/22/17 22:15 05/24/17 22:52 (Duragesic 75 Mcg Patch.72 Hr) 1 patch Q3D T-DERMAL 05/24/17 11:30 05/24/17 12:52 Miscellaneous Information 1 Q3D T-DERMAL 05/27/17 11:45 (Deltasone) 1.25 mg BID PO 05/24/17 21:00 05/25/17 09:28 (Eliquis) 2.5 mg BID PO 05/25/17 10:30 05/25/17 11:55 (Xanax) 0.5 mg Q8H PRN PO 05/25/17 09:45 Lines PIV with no evidence of infection Past Medical History Multiple DVTs status post IVC filter, currently on Eliquis History of abnormal urine cytology, currently being followed by urology Anxiety Arthritis Asthma Colon polyps Diverticulosis Glomerulonephritis Hyper parathyroidism Hypertension Irregular heartbeat Kidney cyst Peripheral neuropathy Past Surgical History Multiple spinal surgeries Right knee surgery 1980s Colostomy then reversed 2009 Hernia repaired Disc surgery 2010 Allergies: Coded Allergies: Iodinated Contrast- Oral and IV Dye (Verified Allergy, Severe, 05/21/17) ALLERGY DURING HEART CATH YEARS AGO PER PATIENT amitriptyline (Unverified Allergy, Severe, 05/21/17) diatrizoate meglumine (Unverified Allergy, Severe, Hypotension, 05/21/17) iodixanol (Unverified Allergy, Severe, Hypotension, 05/21/17) iohexol (Unverified Allergy, Severe, Hypotension, 05/21/17) pentazocine (Unverified Allergy, Severe, BRADYCARDIA, DECREASE NEURO STATUS, 05/21/17) pregabalin (Unverified Allergy, Severe, 05/21/17) warfarin (Unverified Allergy, Severe, 05/21/17) Objective . Vital Signs Date Time Temp Pulse Resp B/P (MAP) Pulse Ox O2 Delivery O2 Flow Rate FiO2 05/25/17 12:00 97.2 60 20 99/55 (70) 97 05/25/17 07:47 97.4 71 19 132/69 (90) 96 05/25/17 04:00 98.0 82 18 145/79 (101) 05/25/17 00:00 98.1 82 20 127/71 (89) 95 05/24/17 20:00 97.8 74 18 129/63 (85) 97 05/24/17 16:00 98.2 57 18 132/63 (86) 96 . Laboratory Tests Test 05/25/17 07:18 Creatinine 1.02 MG/DL Estimat Glomerular Filtration Rate 71 ML/MIN Microbiology Date/Time Source Procedure Growth Status 05/23/17 02:00 Wound Foot Gram Stain - Final Complete 05/23/17 02:00 Wound Culture - Final S. Aureus Mrsa Complete Imaging Current Medications Medications (Trade) Dose Ordered Sig/Humble Route Start Time Stop Time Status Last Admin (NS Flush) 2 ml UNSCH PRN IV FLUSH 05/22/17 00:00 05/25/17 02:54 (NS Flush) 2 ml BID IV FLUSH 05/22/17 09:00 05/25/17 09:31 (Tylenol) 650 mg Q4H PRN PO 05/22/17 00:00 (Zofran Inj) 4 mg Q6H PRN IVP 05/22/17 00:00 (Narcan Inj) 0.4 mg UNSCH PRN IV PUSH 05/22/17 00:00 (Yael-Colace) 1 tab BID PO 05/22/17 09:00 05/25/17 09:31 (Milk Of Magnesia Liq) 30 ml Q12H PRN PO 05/22/17 00:00 (Senokot) 17.2 mg Q12H PRN PO 05/22/17 00:00 (Dulcolax Supp) 10 mg DAILY PRN RECTAL 05/22/17 00:00 (Lactulose Liq) 30 ml DAILY PRN PO 05/22/17 00:00 Pharmacy Profile Note 0 ml @ 0 mls/hr UNSCH OTHER 05/22/17 00:00 Piperacillin Sod/ Tazobactam Sod 50 ml @ 100 mls/hr Q6H IV 05/22/17 03:00 05/25/17 09:31 (Morphine Inj) 2 mg Q3H PRN IV PUSH 05/22/17 01:15 05/25/17 06:25 (Lipitor) 5 mg HS PO 05/22/17 21:00 05/24/17 21:29 (Cardura) 2 mg DAILY PO 05/22/17 09:00 05/25/17 09:29 (Lasix) 20 mg BID PO 05/22/17 09:00 05/25/17 09:31 (Neurontin) 100 mg TID PO 05/22/17 09:00 05/25/17 11:55 (Plaquenil) 200 mg BID PO 05/22/17 09:00 05/25/17 09:30 (KCl) 10 meq HS PO 05/22/17 21:00 05/24/17 21:28 (Zebeta) 1.25 mg DAILY PO 05/22/17 09:00 05/25/17 09:30 (Pill Splitter) 1 ea UNSCH PRN OTHER 05/22/17 02:00 Vancomycin HCl 1500 mg/Sodium Chloride 515 ml @ 257.5 mls/ hr Q24H IV 05/22/17 17:00 05/24/17 16:07 Miscellaneous Information SPECIFIC LAB TO BE DRAWN:VANCOMYCIN TROUGH DATE TO... ONCE ONCE .XX 05/25/17 16:45 05/25/17 16:46 (Ambien) 10 mg HS PRN PO 05/22/17 22:15 05/24/17 22:52 (Duragesic 75 Mcg Patch.72 Hr) 1 patch Q3D T-DERMAL 05/24/17 11:30 05/24/17 12:52 Miscellaneous Information 1 Q3D T-DERMAL 05/27/17 11:45 (Deltasone) 1.25 mg BID PO 05/24/17 21:00 05/25/17 09:28 (Eliquis) 2.5 mg BID PO 05/25/17 10:30 05/25/17 11:55 (Xanax) 0.5 mg Q8H PRN PO 05/25/17 09:45 Physical Exam GENERAL: awake and alert, not in respiratory distress. SKIN: Warm and dry. No generalized rash, no ecchymoses and no evidence of embolic lesions. HEAD: Atraumatic. Normocephalic. No temporal wasting, or tenderness. EYES: Lott conjunctiva. No petechia or hemorrhage. Pupils equal, round and reactive to light. Extraocular movements full and intact. No scleral icterus. No injection or drainage. EARS, NOSE AND THROAT: Nose without bleeding or purulent nasal discharge. No sinus tenderness. Mucous membranes pink and moist. No oral lesions noted. NECK: Trachea midline. Supple and not tender, no meningeal signs CARDIOVASCULAR: Regular rate and rhythm. No murmurs, rubs or gallops heard RESPIRATORY: Clear to auscultation. Breath sounds equal bilaterally. No rales , wheezing or rhonchi ABDOMEN: Soft, non-tender, nondistended. Bowel sounds present and normoactive. No guarding. No rebound. No organomegaly. EXTREMITIES: No clubbing, cyanosis. His RLE is slightly larger compared to his LLE. Both legs and feet have brownish discoloration. The 3rd toe is swollen at tip, with what looks like a superficial ulcer at the tip, with reddish drainage. No odor. There is erythema at the tip of that toe, which is already resolving. Both feet warm, could not feel pulse at R DP. Has scar on R knee. No calf tenderness. Well perfused and warm. NEUROLOGICAL: Awake and alert. Cranial nerves grossly intact. Motor grossly within normal limits. PSYCHIATRIC: Normal affect, calm and cooperative. LINE: No evidence of infection Assessment & Plan Remarks IMPRESSION Cellulitis R 3rd toe with callus, and on and off ulcer - ulcer looks superficial and no evidence of osteo on MRI; ESR only 17 Hx DVT CKD RECOMMENDATION Stop Vanco and Zosyn Zyvox x 10 days Will ask CM to assist with getting Zyvox If there is delay in getting RX, I wrote Rx for Doxy 100 BID until he gets his Zyvox Spoke with CM D/W Dr Ramos D/C plans noted Rosie Cortés MD May 25, 2017 13:12
[2017-05-25] MEDS: LINEZOLID 600 MG TAB PO SCH ×2 (14:07→21:55)
[2017-05-25] MEDS ORDERED: ZYVO600T PO (15:22)
[2017-05-25] MEDS ORDERED: PHARMACY ORDERED LAB ONE (16:45)
[2017-05-25] MEDS: POTASSIUM CHLORIDE 10 MEQ CONTROLLED RELEASE TAB PO SCH (21:53)
[2017-05-25] MEDS: ATORVASTATIN 10 MG TAB PO SCH (21:54)
[2017-05-26] VITALS: BP 125/65; PULSE 65; RESP 18; TEMP 97.8; O2SAT 96
[2017-05-26] MEDS: MORPHINE SULFATE 4 MG/ML INJ IV PUSH PRN (02:51)
[2017-05-26] MEDS: SODIUM CHLORIDE 0.9% FLUSH 10 ML FLUSH IV FLUSH PRN (02:51)
[2017-05-26 04:00] VITALS: BP 137/68; PULSE 66; RESP 18; TEMP 97.3; O2SAT 98
[2017-05-26 08:29] VITALS: BP 147/65; PULSE 65; RESP 20; TEMP 97.7; O2SAT 97
[2017-05-26] MEDS: predniSONE 1 MG TAB PO SCH (08:55)
[2017-05-26] MEDS: FUROSEMIDE 20 MG TAB PO SCH (08:56)
[2017-05-26] MEDS: DOXAZOSIN MESYLATE 2 MG TAB PO SCH (08:57)
[2017-05-26] MEDS: SODIUM CHLORIDE 0.9% FLUSH 10 ML FLUSH IV FLUSH SCH (08:57)
[2017-05-26] MEDS: GABAPENTIN 100 MG CAP PO SCH (08:57)
[2017-05-26] MEDS: HYDROXYCHLOROQUINE SULFATE 200 MG TAB PO SCH (08:58)
[2017-05-26] MEDS: BISOPROLOL FUMARATE 5 MG TAB PO SCH (08:59)
[2017-05-26] MEDS: LINEZOLID 600 MG TAB PO SCH (09:00)
[2017-05-26] MEDS: DOCUSATE SODIUM 50 MG/SENNA 8.6 MG TAB PO SCH (09:00)
[2017-05-26] MEDS: APIXABAN 2.5 MG TABLET PO SCH (09:00)
[2017-05-27] MEDS ORDERED: REMOVE OLD PATCH T-DERMAL SCH (11:45)
== END 2017-05-26 10:16 | disposition home or self-care (01) | DRG 603 ==
LOC: NEPE 15:52 → NEDA 22:23 → NEDH 05-22 03:06 → N05B 05-22 13:35
PROVIDERS: ADMIT Hospitalist; ATTEND Hospitalist
DX: L03.031 Cellulitis of right toe (principal); G62.9 Polyneuropathy, unspecified; L97.519 Non-pressure chronic ulcer of other part of right foot with unspecified severity; B95.62 Methicillin resistant Staphylococcus aureus infection as the cause of diseases classified elsewhere; I12.9 Hypertensive chronic kidney disease with stage 1 through stage 4 chronic kidney disease, or unspecified chronic kidney disease; N18.3 Chronic kidney disease, stage 3 (moderate); E78.5 Hyperlipidemia, unspecified; E87.6 Hypokalemia; Z91.041 Radiographic dye allergy status; J45.909 Unspecified asthma, uncomplicated; Z79.52 Long term (current) use of systemic steroids; I25.10 Atherosclerotic heart disease of native coronary artery without angina pectoris; Z86.718 Personal history of other venous thrombosis and embolism; Z79.02 Long term (current) use of antithrombotics/antiplatelets; Z87.442 Personal history of urinary calculi; Z87.440 Personal history of urinary (tract) infections
CPT/HCPCS: 73630; 73720; 80048; 82565; 85025; 85610; 85652; 85730; 86140; 86403; 87070; 87147; 87186; 87205; 93922; 96365; 96367; 96375; A9579; J2270; J2543; J3370; J7030; J7040; J7050; J7512

== ENCOUNTER → 2017-06-04 | Outpatient (CLI) | payer MEDICARE, OTHER ==
[~2017-06-04] MED LIST changes: -AMBI10TA PO; +CARD2TAB PO; -HYDR-4107 PO; -OXYC1TAB63 PO
[2017-06-04 17:53] LABS: BICARBONATE 31.3 MEQ/L (21.0-32.0); CALCIUM 10.3 MG/DL (8.5-10.1); CREATININE 1.7 MG/DL (0.60-1.30); MAGNESIUM 2.2 MG/DL (1.5-2.5); PHOSPHORUS 2.8 MG/DL (2.5-4.9)
== END ==
LOC: PLAB 12:56
PROVIDERS: ATTEND Internal Medicine Nephrology
DX: N25.81 Secondary hyperparathyroidism of renal origin (principal); N18.2 Chronic kidney disease, stage 2 (mild); E55.9 Vitamin D deficiency, unspecified
CPT/HCPCS: 36415; 80069; 83735; 83970

== ENCOUNTER → 2017-07-02 | Outpatient (CLI) | payer MEDICARE, OTHER ==
[2017-07-02 14:15] LABS: ALBUMIN 3.8 GM/DL (3.4-5.0); BICARBONATE 30.7 MEQ/L (21.0-32.0); CALCIUM 9.4 MG/DL (8.5-10.1); CREATININE 1.26 MG/DL (0.60-1.30)
[2017-07-02 14:16] LABS: PHOSPHORUS 2.7 MG/DL (2.5-4.9)
== END ==
LOC: PLAB 10:49
PROVIDERS: ATTEND Physician Assistant
DX: N18.2 Chronic kidney disease, stage 2 (mild) (principal)
CPT/HCPCS: 36415; 80069

== ENCOUNTER → 2017-07-16 | Outpatient (CLI) | payer MEDICARE, OTHER ==
[2017-07-16 14:33] LABS: ALBUMIN 4.1 GM/DL (3.4-5.0); BICARBONATE 26.8 MEQ/L (21.0-32.0); CREATININE 1.8 MG/DL (0.60-1.30)
[2017-07-16 14:37] LABS: PHOSPHORUS 3.2 MG/DL (2.5-4.9)
[2017-07-16 14:44] LABS: BACTERIA, URINE OCC /hpf; BILIRUBIN, URINE NEG (NEG); BLOOD, URINE MOD (NEG); GLUCOSE,URINE NEG (NEG); HYALINE CAST, URINE 5 /lpf (RARE); KETONE, URINE NEG (NEG); MUCUS URINE FEW /lpf (OCC); NITRITE,URINE NEG (NEG); URINE COLOR YELLOW (YELLW/STRAW); URINE LEUKOCYTE ESTERASE SMALL (NEG)
== END ==
LOC: PLAB 09:08
PROVIDERS: ATTEND Internal Medicine Nephrology
DX: N25.81 Secondary hyperparathyroidism of renal origin (principal); N18.2 Chronic kidney disease, stage 2 (mild)
CPT/HCPCS: 36415; 80069; 81001

== ENCOUNTER → 2017-07-24 | Outpatient (CLI) | payer MEDICARE, OTHER ==
[2017-07-24 14:02] LABS: ALBUMIN 4.2 GM/DL (3.4-5.0); BICARBONATE 28.4 MEQ/L (21.0-32.0); CALCIUM 9.8 MG/DL (8.5-10.1); CREATININE 1.32 MG/DL (0.60-1.30)
[2017-07-24 14:05] LABS: PHOSPHORUS 3.1 MG/DL (2.5-4.9)
== END ==
LOC: PLAB 09:44
PROVIDERS: ATTEND Internal Medicine Nephrology
DX: N25.81 Secondary hyperparathyroidism of renal origin (principal); N18.2 Chronic kidney disease, stage 2 (mild)
CPT/HCPCS: 36415; 80069